=== PATIENT | male | born 2000 | race Caucasian/White ===

== ENCOUNTER 2023-03-14 16:49 | Emergency (ER) | payer MEDICAID, SELFPAY ==
[2023-03-14] VITALS (10 sets, daily range): BP systolic 114–131; BP diastolic 80–93; PULSE 94–102; RESP 14–24; TEMP 37.4; O2SAT 94–98; BMI 44.5
--- NOTE | 2023-03-14 17:04 | PC.NURSE ---
pt presents to ED because pt states that for the last 3 days he has had intermittent chest pain in center of chest that he describes as a sharp sensation. pt states that it started 3 days ago while he was driving and lasted a couple minutes. pt states pain has been coming and going on and off last 3 days. denies any other associated symptoms. no cardiac hx.
--- NOTE | 2023-03-14 17:08 | ECG_ITS ---
The [facility] Test Date: 2023-03-14 Pat Name: LAURA FABIAN Department: Room: - Gender: Male Outside Collector: : 2000 Requested By: 0923 Order Number: [id number] Reading MD: KIESHA JOHNSON Measurements Intervals [place] Rate: 93 P: 58 OR: 134 QRS: 86 QRSD: 76 T: 47 QT: 322 QTc: 373 Interpretive Statements 1100 Sinus rhythm 9110 normal ECG No previous ECG available for comparison Electronically Signed On 03-16-2023 6:35:18 EDT by KIESHA JOHNSON
--- NOTE | 2023-03-14 17:08 | XR_ITS ---
The [address] [address] Patient Name: LAURA FABIAN MRN: [id number] date: 2000 Sex: M Assigned Patient Location: ER Current Patient Location: ER Accession/Order Number: [id number] Exam Date: 03/14/2023 17:10 Report Date: 03/14/2023 17:51 At the request of: UTE HINDS Procedure: XR chest 2V EXAM: XR chest 2V HISTORY: pain COMPARISON: None. TECHNIQUE: PA and lateral views FINDINGS: The cardiovascular silhouette is normal. Lung blackman are well-expanded and clear. Pleural spaces are clear. The bony structures are unremarkable. XR/XR chest 2V IMPRESSION: No evidence for acute cardiopulmonary disease. Electronically authenticated by: Jad HUBER Date: 03/14/2023 17:51
--- NOTE | 2023-03-14 17:36 | ED_ITS ---
Documented by User: Lucia Brown 03/14/23 18:04 HPI - Chest Pain General Chief Complaint: Chest Pain Stated Complaint: CHEST PAIN x3 days Time Seen by Provider: 03/14/23 16:56 Source: patient Mode of arrival: walk-in Limitations: no limitations History of Present Illness HPI narrative: 22-year-old male presents here with a chief complaint of chest pain. Patient's had pain on and off for the last month. 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 He also states he takes Tums recently for gastric reflux. He is obese. He does not have a history of any cardiac issues. He is not hypertensive. He has no past cardiac history himself. He has no pain at this time.Patient denies History of recent surgery travel or trauma. He does not have any risk factors for PE. Vital signs are stable he is not currently febrile. Related Data Previous Rx's Medication Instructions Recorded omeprazole 40 mg capsule,delayed 40 mg PO DAILY #30 caps 03/14/23 release Allergies Allergy/AdvReac Type Severity Reaction Status Date / Time dexmethylphenidate Allergy Unknown Verified 03/14/23 16:59 [From Focalin] Review of Systems ROS Narrative All Systems are negative except as noted/marked.All systems reviewed and otherwise negative Exam Narrative Exam Narrative: Patient is a All Systems are negative except as noted/marked.All systems reviewed and otherwise negative Nurses note and vital signs reviewed and patient is not hypoxic. General: The patient appears well and in no apparent distress. Patient is resting comfortably on cart. Skin: Warm, dry, no pallor noted. There is no rash noted. Head: Normocephalic, atraumatic Ears, Nose, Mouth, and Throat: oral mucosa is moist. Nares patent. Mouth without vesicles. Ear canals patent. Tm's without Erythema Cardiovascular: Regular Rate and Rhythm Respiratory: Patient is in no distress, no accessory muscle use, lungs are clear to auscultation, no wheezing, rales or rhonchi Back: non-tender, no CVA tenderness bilaterally to percussion. GI: obese Normal bowel sounds, no tenderness to palpation, no masses appreciated. No rebound, guarding, or rigidity noted. Musculoskeletal: The patient has no evidence of calf tenderness, no pitting edema, symmetrical pulses noted bilaterally Neurological: A&O x4, normal speech Psychiatric: Cooperative Constitutional Vital Signs, click to edit/add: Last Vital Signs Temp 99.3 F 03/14/23 16:53 Pulse 97 H 03/14/23 18:00 Resp 24 03/14/23 18:00 BP 131/80 03/14/23 17:46 Pulse Ox 94 L 03/14/23 18:00 O2 Del Method Room Air 03/14/23 16:53 Course Vital Signs Vital signs: Vital Signs Temperature 99.3 F 03/14/23 16:53 Pulse Rate 98 H 03/14/23 16:53 Respiratory Rate 20 03/14/23 16:53 Blood Pressure 114/93 H 03/14/23 16:53 Pulse Oximetry 98 03/14/23 16:53 Oxygen Delivery Method Room Air 03/14/23 16:53 Temperature 99.3 F 03/14/23 16:53 Pulse Rate 97 H 03/14/23 18:00 Respiratory Rate 24 03/14/23 18:00 Blood Pressure 131/80 03/14/23 17:46 Pulse Oximetry 94 L 03/14/23 18:00 Oxygen Delivery Method Room Air 03/14/23 16:53 MDM - Chest Pain MDM Narrative Medical decision making narrative: Patient presented here chief complaint of chest pain. He states this pain radiates both sides of his chest and under his ribs. It is not reproducible at this time. Patient's cardiac score is zero. EKG is within normal limits chest x- ray within normal limits. Patient is being medicated with gastrointestinal cocktail here. patient pain is relieved with the gastrointestinal cocktail. Patient be discharged home with a prescription for omeprazole. Patient states tomorrow as his 23st birthday wants know when he can drink so that he does not have more pain, acid reflux. Plain the patient to use Pepcid. To avoid alcohol,spicy, fatty foods. He verbalizes understanding agrees with plan of care Differential Diagnosis Differential diagnosis: Likely costochondritis, chest pain and biliary colic Medical Records Data Attestation: I reviewed the patient's medical records. Imaging Data Chest x-ray: My impression: neg ECG Data Attestation: I personally reviewed and interpreted this ECG as follows: Interpretation: 1701 Some sinus rhythm with a rate of 93 bpm no [address]opy no ST elevation or depression PRR interval 134 ms QRS duration 76 ms Heart Score History: Slightly/Non-Suspicious ECG: Normal Age: <45 years Risk Factors: No Risk Factors Discharge Plan Discharge Chief Complaint: Chest Pain Clinical Impression: Acid reflux, Chest pain Patient Disposition: Home, Self-Care Time of Disposition Decision: 18:01 Condition: Good Prescriptions / Home Meds: New omeprazole 40 mg capsule,delayed release(DR/EC) 40 mg PO DAILY Qty: 30 0RF Instructions: Diet for Stomach Ulcers and Gastritis (ED), Indigestion (ED), Noncardiac Chest Pain (ED) Stand Alone Forms: Portal Instructions Referrals: Parisa Hoff MD [Primary Care Provider] - 1 week Discharge Date/Time: 03/14/23 18:07 Documented by User: Pura Steele MD 03/14/23 18:13 HPI - Chest Pain General Chief Complaint: Chest Pain Stated Complaint: CHEST PAIN x3 days Time Seen by Provider: 03/14/23 16:56 Related Data Previous Rx's Medication Instructions Recorded omeprazole 40 mg capsule,delayed 40 mg PO DAILY #30 caps 03/14/23 release Allergies Allergy/AdvReac Type Severity Reaction Status Date / Time dexmethylphenidate Allergy Unknown Verified 03/14/23 16:59 [From Focalin] Exam Constitutional Vital Signs, click to edit/add: Last Vital Signs Temp 99.3 F 03/14/23 16:53 Pulse 97 H 03/14/23 18:00 Resp 24 03/14/23 18:00 BP 131/80 03/14/23 17:46 Pulse Ox 94 L 03/14/23 18:00 O2 Del Method Room Air 03/14/23 16:53 Course Vital Signs Vital signs: Vital Signs Temperature 99.3 F 03/14/23 16:53 Pulse Rate 98 H 03/14/23 16:53 Respiratory Rate 20 03/14/23 16:53 Blood Pressure 114/93 H 03/14/23 16:53 Pulse Oximetry 98 03/14/23 16:53 Oxygen Delivery Method Room Air 03/14/23 16:53 Temperature 99.3 F 03/14/23 16:53 Pulse Rate 97 H 03/14/23 18:00 Respiratory Rate 24 03/14/23 18:00 Blood Pressure 131/80 03/14/23 17:46 Pulse Oximetry 94 L 03/14/23 18:00 Oxygen Delivery Method Room Air 03/14/23 16:53 MDM - Chest Pain MDM Narrative Medical decision making narrative: Patient presented here chief complaint of chest pain. He states this pain radiates both sides of his chest and under his ribs. It is not reproducible at this time. Patient's cardiac score is zero. EKG is within normal limits chest x- ray within normal limits. Patient is being medicated with gastrointestinal cocktail here. patient pain is relieved with the gastrointestinal cocktail. Patient be discharged home with a prescription for omeprazole. Patient states tomorrow as his 23st birthday wants know when he can drink so that he does not have more pain, acid reflux. Plain the patient to use Pepcid. To avoid alcohol,spicy, fatty foods. He verbalizes understanding agrees with plan of care. Attending physician attestation I have reviewed the mid-level documentation, agree with the documentation, medical decision making and treatment plan as outlined by the mid-level provider. Discharge Plan Discharge Chief Complaint: Chest Pain Clinical Impression: Acid reflux, Chest pain Patient Disposition: Home, Self-Care Time of Disposition Decision: 18:01 Condition: Good Prescriptions / Home Meds: New omeprazole 40 mg capsule,delayed release(DR/EC) 40 mg PO DAILY Qty: 30 0RF Instructions: Diet for Stomach Ulcers and Gastritis (ED), Indigestion (ED), Noncardiac Chest Pain (ED) Stand Alone Forms: Portal Instructions Referrals: Parisa Hoff MD [Primary Care Provider] - 1 week Discharge Date/Time: 03/14/23 18:07
[2023-03-14] MEDS: lidocaine HCL 15 ML, MAG HYDROX/ALUMINUM HYD/SIMETH 30 ML, HYOSCYAMINE SULFATE 0.25 MG PO (17:44)
== END 2023-03-14 18:07 | disposition home or self-care (01) ==
PROVIDERS: Emergency Provider Emergency Medicine; PCP Family Medicine
DX: R07.9 Chest pain, unspecified (principal); K21.9 Gastro-esophageal reflux disease without esophagitis
CPT/HCPCS: 71046; 93005; 99284

== ENCOUNTER 2023-09-10 09:40 | Outpatient (OUT) | payer MEDICAID, SELFPAY ==
--- NOTE | 2023-09-10 09:48 | XR_ITS ---
The [address] [address] Patient Name: LAURA FABIAN MRN: [id number] date: 2000 Sex: M Assigned Patient Location: RAD Current Patient Location: RAD Accession/Order Number: [id number] Exam Date: 09/10/2023 10:01 Report Date: 09/10/2023 10:35 At the request of: JAYME KATHLEEN Procedure: XR foot RT min 3V PROCEDURE: XR foot RT min 3V HISTORY: M79.671 pain in right foot , lateral COMPARISON: None. FINDINGS: BONES:No fracture, acute abnormality, or significant arthropathy. SOFT TISSUES:Soft tissue thickening lateral to the 5th metatarsal; nonspecific. No radiopaque foreign body. EFFUSION:None visible. OTHER: Negative. XR/XR foot RT min 3V IMPRESSION: 1. No acute or suspicious bone abnormality. 2. Mild lateral soft tissue swelling of uncertain etiology. Electronically authenticated by: VERONICA AMADO Date: 09/10/2023 10:35
== END 2023-09-10 09:41 | disposition home or self-care (01) ==
LOC: RAD 09:44
PROVIDERS: PCP Family Medicine; Visit Provider Family Medicine
DX: M79.671 Pain in right foot (principal)
CPT/HCPCS: 73630

== ENCOUNTER 2023-09-21 14:11 | Outpatient (OUT) | payer MEDICAID, SELFPAY ==
--- NOTE | 2023-09-21 | XR_ITS ---
The [address] [address] Patient Name: LAURA FABIAN MRN: [id number] date: 2000 Sex: M Assigned Patient Location: RAD Current Patient Location: [facility] Accession/Order Number: [id number] Exam Date: 09/21/2023 14:35 Report Date: 09/21/2023 15:40 At the request of: DANNY CREWS Procedure: XR foot RT min 3V PROCEDURE: XR foot RT min 3V COMPARISON: 09/10/2023 HISTORY: RIGHT FOOT PAIN FINDINGS: BONES:No fracture, acute abnormality, or significant arthropathy. SOFT TISSUES:Negative. No visible soft tissue swelling. EFFUSION:None visible. OTHER: Negative. XR/XR foot RT min 3V IMPRESSION: No acute radiographic abnormality Electronically authenticated by: JUDITH BENAVIDES Date: 09/21/2023 15:40
--- OUTSIDE RECORDS SUMMARY | 2023-09-21 14:27 | XMS_ITS | CCD ---
Author Name Unknown Address [address] [place] [address] Organization [facility] Care Team Providers Care Screw Machine Set Up Operator Tool Name Role Phone SPLAWSKI, RUTH B Unavailable Unavailable SPLAWSKI, RUTH B Unavailable Unavailable Parisa Kathleen Unavailable Unavaila ble SPLAWSKI, RUTH B Unavailable Unavailable SPLAWSKI, RUTH B Unavailable Unavailable Parisa Kathleen Unavailable Unavaila ble SPLAWSKI, RUTH B Unavailable Unavailable SPLAWSKI, RUTH B Unavailable Unavailable SPLAWSKI, RUTH B Unavailable Unavailable Parisa Kathleen Unavailable Unavaila PARISA Kaur Admitting Unavailable PARISA KATHLEEN Attending Unavailable PARISA KATHLEEN Primary Care Unavailable PARISA KATHLEEN Consulting Unavailable PARISA KATHLEEN Admitting Unavailable PARISA KATHLEEN Attending Unavailable PARISA KATHLEEN Consulting Unavailable Ruth Smyth MD Unavailable Unavailable Parisa Kathleen Unavailable Unavailable Emma Claros Unavailable Parisa Kathleen MD Primary Care Provider [phone] PARISA KATHLEEN Primary Care Unavailable KYREE ARTEAGA Attending Unavail able Parisa Kathleen Unavailable Allergies Allergy Classification Reported Allergen(s) Allergy Type Date of Onset Reaction(s) Facility Amphetamine / Dextroamphetamine (1 source) Amphetamine / Dextroamphetamine Drug Allergy [facility] [facility] [address] Work Phone: dexmethylphenidate (1 source) dexmethylphenidate Drug Allergy [facility] 1600 Work Phone: (1 source) Amphetamine / Dextroamphetamine Drug Allergy 016 [facility] (1 source) dexmethylphenidate Drug Allergy 016 [facility] (1 source) Esomeprazole Drug Allergy 016 [facility] (4 sources) dexmethylphenidate; Translations: [DEXMETHYLPHENIDATE] Drug Allergy 016 Other (See Comments) [facility] (2 sources) Amphetamine aspartate / Amphetamine Sulfate / Dextroamphetamine saccharate / Dextroamphetamine Sulfate; Translations: [DEXTROAMPHETAMINE-A MPHETAMINE] Drug Allergy Unknown [facility] (3 sources) Esomeprazole; Translations: [ESOMEPRAZOLE] Drug Allergy Unknown [facility] (1 source) Allergies Reconciled Propensity to adverse reactions Unknown [facility] (1 source) Adderall *ADHD/ANTI-NARCOLEPS Y/ANTI-OBESITY/ANORE X Propensity to adverse reactions Unknown [facility] Other (1 source) Whey Protein Drug allergy 018 Comment:whey [facility] Other (1 source) Focalin XR *ADHD/ANTI-NARCOLEPS Y/ANTI-OBESITY/ANOR Propensity to adverse reactions 014 FOCALIN XR Comment:Freet ext Needs Updated. [facility] Other (1 source) Adderall XR *ADHD/ANTI-NARCOLEPS Y/ANTI-OBESITY/ANO Propensity to adverse reactions 013 ADDERALL XR Comment:Freet ext Needs Updated. [facility] Other (1 source) Focalin *ADHD/ANTI-NARCOLEPS Y/ANTI-OBESITY/ANORE XI Propensity to adverse reactions Unknown [facility] Other (1 source) patient allergy list reviewed by nurse or physicia Propensity to adverse reactions 019 Comment:Done [facility] Other Medications Current Medications Medication Drug Class(es) Dates Sig (Normalized) Sig (Original) amoxicillin 500 mg oral capsule (3 sources) Penicillin-class Antibacterial Start: 10-19-2022 End: 10-26-2022 take 2 capsules by mouth three times daily amoxicillin (AMOXIL) 500 MG capsule Indications: Bilateral otitis media, unspecified otitis media type Take 2 (two) capsules (1,000 mg total) by mouth 3 (three) times a day for 7 days . 42 capsule 0 10/19/2022 10/26/2022 Active Start: 07-10-2019 take 1 tablet by sunshine th every twelve hours Amoxicillin 875 MG 1 tablet Orally every 12 hrs for 7 days Jul, Not-Taking/PRN benzonatate 100 mg oral capsule (1 source) Non-narcotic Antitussive Start: 10-19-2022 benzonatate (Tessalon Perles) 100 MG capsule Indications: Acute cough Take one or two capsules every 8 hours as needed for cough. Do not chew. . 60 capsule 1 10/19/2022 Active predniSONE 20 mg oral tablet (1 source) Start: 12-03-2021 take 1 tablet by mouth every twelve hours predniSONE 20 MG 1 tablet Orally bid for 5 day(s) Nov, Active Completed/Discontinued Medications Medication Drug Class(es) Dates Sig (Normalized) Sig (Original) cetirizine hydrochloride 10 mg oral tablet (1 source) Histamine-1 Receptor Antagonist Start: 04-27-2018 take 1 tablet by mouth once daily as needed Cetirizine HCl - 10 MG Oral Tablet TAKE 1 TABLET BY MOUTH EVERYDAY NEEDED FOR ALLERGIES Quantity: 30 Refills: 0 Start : 27-Apr-2018 Active dextromethorphan hydrobromide 15 mg / guaiFENesin 400 mg / pseudoephedrine hydrochloride 60 mg oral tablet (2 sources) alpha-Adrenergic Agonist, Uncompetitive M-zdytao-O-aspartate Receptor Antagonist, Sigma-1 Agonist Start: 07-10-2019 take 0.5-1 tablets by mouth every six hours as needed Capmist DM 60-15-400 MG 1/2 to 1 tablet as needed Orally every 6 hours Jul, Not-Taking/PRN fluticasone propionate 0.05 mg/actuat metered dose nasal spray (2 sources) Corticosteroid Start: 07-10-2019 take 1 spray(s) nasal route once daily as needed Fluticasone Propionate 50 MCG/ACT 1 spray in each nostril Nasally Once a day for 30 day(s) Jul, Not-Taking/PRN Start: 07-10-2019 take 1 spray(s) nasa l route once daily Fluticasone Propionate 50 MCG/ACT 1 spray in each nostril Nasally Once a day for 30 day(s) Jul, Not-Taking lurasidone hydrochloride 40 mg oral tablet (1 source) Atypical Antipsychotic Start: 05-04-2018 Latuda 40 MG Oral Tablet Quantity: 30 Refills: 0 Start : 04-May-2018 Active nystatin 100 unt/mg topical powder (1 source) Polyene Antifungal Start: 06-27-2018 Nystatin 575976 UNIT/GM External Powder Quantity: 30 Refills: 0 Start : 27-Jun-2018 Active omeprazole 20 mg delayed release oral capsule (2 sources) Proton Pump Inhibitor Start: 05-11-2018 take 1 capsule by mouth twice daily Omeprazole 20 MG Oral Capsule Delayed Release Take 1 capsule twice daily Quantity: 30 Refills: 0 Ruth Smyth MD Start : 11-May-2018 Active take 1 capsule by mouth once carolyn ly Omeprazole 20 MG 1 capsule 30 minutes before morning meal Orally Once a day for 30 days Active oxymetazoline hydrochloride 0.5 mg/ml nasal spray (2 sources) Start: 07-11-2018 take 1 spray(s) nasal route twice daily Afrin Sinus 0.05 % Nasal Solution USE 1 SPRAY IN EACH NOSTRIL TWICE DAILY. Quantity: 1 Refills: 0 Ruth Smyth MD Start : 11-Jul-2018 Active 15 ML Bottle Start: 08-06-2017 [facility] Nasal Spra y 0.05 % Nasal Solution USE 2 SPRAYS IN EACH NOSTRIL TWICE A DAY NEEDED Quantity: 15 Refills: 0 Start : 06-Aug-2017 Active penicillin v potassium 500 mg oral tablet (1 source) Start: 10-15-2022 End: 10-19-2022 take 1 tablet by mouth four times daily penicillin v potassium (VEETID) 500 MG tablet TAKE 1 TABLET BY MOUTH 4 TIMES DAILY FOR 7 DAYS 0 10/15/2022 10/19/2022 Discontinued (Alternate therapy) Problems Active Problems Problem Classification Problem Date Documented Da te Episodic/Chronic Abdominal pain (9 sources) Epigastric pain; Translations: [Epigastric pain] Onset: 07-19-2013 Episodic Acute and chronic tonsillitis (1 source) Enlargement of tonsil or adenoid; Translations: [Hypertrophy of tonsil with adenoids] Onset: 11-05-2014 Chronic Adjustment disorders (1 source) Adjustment disorder with depressed mood; Translations: [Adjustment disorder with depressed mood] Onset: 09-18-2013 Chronic Attention-deficit, conduct, and disruptive behavior disorders (1 source) Attention deficit hyperactivity disorder; Translations: [Attention-deficit hyperactivity disorder, unspecified type] Chronic Esophageal disorders (4 sources) Eosinophilic esophagitis; Translations: [Gastroesophageal reflux disease] Onset: 01-30-2015 Chronic Fracture of upper limb (1 source) Nondisplaced fracture of distal phalanx of right thumb, initial encounter for closed fracture; Translations: [Nondisplaced fracture of distal phalanx of right thumb, initial encounter for closed fracture] Episodic Gastritis and duodenitis (1 source) Duodenitis without bleeding; Translations: [Duodenitis without bleeding] Onset: 05-30-2018 Episodic Mood disorders (1 source) Bipolar disorder, most recent episode depression; Translations: [Bipolar I disorder, most recent episode (or current) depressed, unspecified] Chronic Mood disorders (1 source) Mood disorders; Translations: [Depression, unspecified] Nausea and vomiting (1 source) Vomiting, unspecified; Translations: [Vomiting, unspecified] Onset: 05-30-2018 Nonspecific chest pain (2 sources) Precordial pain; Translations: [Precordial pain] Onset: 04-23-2015 Episodic Other circulatory disease (1 source) Elevated blood-pressure reading without diagnosis of hypertension; Translations: [Elevated blood-pressure reading, without diagnosis of hypertension] Episodic Other connective tissue disease (1 source) Pain in right foot; Translations: [Pain in right foot] Episodic Other connective tissue disease (1 source) Pain in right foot Episodic Other disorders of stomach and duodenum (1 source) Other diseases of stomach and duodenum; Translations: [Other diseases of stomach and duodenum] Onset: 05-30-2018 Episodic Other ear and sense organ disorders (1 source) Impacted cerumen; Translations: [Impacted cerumen, right ear] Episodic Other gastrointestinal disorders (1 source) Diarrhea; Translations: [Diarrhea] Episodic Other infections; including parasitic (1 source) History of bacterial infection; Translations: [Personal history of other infectious and parasitic diseases] Episodic Other liver diseases (1 source) Fatty (change of) liver, not elsewhere classified; Translations: [Fatty (change of) liver, not elsewhere classified] Onset: 05-30-2018 Chronic Other liver diseases (1 source) Steatosis of liver; Translations: [Other chronic nonalcoholic liver disease] Chronic Other lower respiratory disease (1 source) Chronic cough; Translations: [Cough] Episodic Other nutritional; endocrine; and metabolic disorders (1 source) Body mass index (BMI) 45.0-49.9, adult; Translations: [Body mass index (BMI) 45.0-49.9, adult] Chronic Other nutritional; endocrine; and metabolic disorders (1 source) Body mass index (BMI) 40.0-44.9, adult; Translations: [Body mass index (BMI) 40.0-44.9, adult] Chronic Other nutritional; endocrine; and metabolic disorders (1 source) Obesity; Translations: [Obesity, unspecified] Onset: 06-27-2018 Chronic Other nutritional; endocrine; and metabolic disorders (1 source) Abnormal weight loss; Translations: [Abnormal weight loss] Onset: 05-30-2018 Episodic Other upper respiratory disease (1 source) Bleeding from nose; Translations: [Epistaxis] Episodic Other upper respiratory disease (1 source) Epistaxis; Translations: [Epistaxis] Episodic Otitis media and related conditions (5 sources) Otitis media of bilateral ears; Translations: [Otitis media, unspecified, bilateral] Onset: 09-08-2018 Episodic Screening and history of mental health and substance abuse codes (1 source) H/O: psychiatric disorder; Translations: [Personal history of other mental disorders] Episodic Sprains and strains (3 sources) Sprain of tibiofibular ligament of right ankle; Translations: [Sprain of tibiofibular ligament of right ankle, initial encounter] Onset: 12-05-2013 Episodic Unclassified (1 source) COVID-19; Translations: [COVID-19] Onset: 08-10-2020 Unclassified (1 source) Acute cough; Translations: [Acute cough] Onset: 10-19-2022 Unclassified (1 source) Cellulitis and abscess of leg, except foot; Translations: [Cellulitis and abscess of leg, except foot] Onset: 02-12-2015 Unclassified (1 source) Other dyspnea and respiratory abnormalities; Translations: [Other dyspnea and respiratory abnormalities] Onset: 04-23-2015 Unclassified (1 source) Health examination of defined subpopulation; Translations: [Health examination of defined subpopulation] Onset: 10-24-2014 Unclassified (1 source) Pain in joint, forearm; Translations: [Pain in joint, forearm] Onset: 06-27-2018 Unclassified (1 source) Diphtheria-tetanus- pertussis, combined [DTP] [DtaP]; Translations: [Diphtheria-tetanus -pertussis, combined [DTP] [DtaP]] Onset: 10-24-2014 Viral infection (3 sources) Infectious mononucleosis; Translations: [Infectious mononucleosis, unspecified without complication] Onset: 08-23-2014 Episodic Past or Other Problems Problem Classification Problem Date Documented Da te Episodic/Chronic Acute bronchitis (1 source) Acute bronchitis, unspecified; Translations: [Acute bronchitis, unspecified] Onset: 08-12-2017 Episodic Genitourinary symptoms and ill-defined conditions (1 source) Dysuria; Translations: [Dysuria] Onset: 12-13-2018 Episodic Headache; including migraine (1 source) Headache; Translations: [Headache] Onset: 04-22-2016 Episodic Immunizations and screening for infectious disease (5 sources) Contact with and (suspected) exposure to other viral communicable diseases; Translations: [CONTCT EXPS OTH VIRL COMMUNICABL DZ] Onset: 06-07-2020 Resolved: 12-03-2021 Episodic Intracranial injury (2 sources) History of concussion injury of brain; Translations: [Personal history of traumatic brain injury] Onset: 04-21-2017 Episodic Mycoses (1 source) Candidiasis of skin and nails; Translations: [Candidiasis of skin and nail] Onset: 06-27-2018 Episodic Nausea and vomiting (2 sources) Vomiting; Translations: [Vomiting alone] Onset: 2018 Episodic Noninfectious gastroenteritis (1 source) Non-infective enteritis and colitis; Translations: [Noninfective gastroenteritis and colitis, unspecified] Onset: 01-13-2018 Episodic Other connective tissue disease (1 source) Enthesopathy of hip region; Translations: [Enthesopathy of hip region] Onset: 04-05-2018 Episodic Other connective tissue disease (1 source) Bicipital tendinitis, left shoulder; Translations: [Bicipital tendinitis, left shoulder] Onset: 04-05-2018 Episodic Other connective tissue disease (1 source) Pain in right hand; Translations: [Pain in right hand] Onset: 06-07-2015 Episodic Other connective tissue disease (1 source) Spasm of muscle; Translations: [Spasm of muscle] Onset: 04-27-2014 Episodic Other connective tissue disease (1 source) Muscle pain; Translations: [Unspecified myalgia and myositis] Onset: 12-16-2017 Episodic Other connective tissue disease (1 source) Achilles bursitis or tendinitis; Translations: [Achilles bursitis or tendinitis] Onset: 05-15-2015 Episodic Other gastrointestinal disorders (1 source) Diarrhea, unspecified; Translations: [Diarrhea, unspecified] Onset: 10-10-2013 Episodic Other inflammatory condition of skin (1 source) Solar erythema; Translations: [Contact dermatitis and other eczema due to sunburn] Onset: 04-05-2018 Episodic Other injuries and conditions due to external causes (1 source) Sprain of joint; Translations: [Unspecified site of sprain and strain] Onset: 07-13-2014 Episodic Other injuries and conditions due to external causes (1 source) Sprains and strains of joints and adjacent muscles; Translations: [Other specified sites of sprains and strains] Onset: 06-28-2013 Episodic Other lower respiratory disease (3 sources) Cough; Translations: [Acute cough] Onset: 07-19-2013 Episodic Other non-traumatic joint disorders (1 source) Pain in left wrist; Translations: [Pain in left wrist] Onset: 05-15-2014 Episodic Other nutritional; endocrine; and metabolic disorders (1 source) Overweight; Translations: [Overweight] Onset: 05-15-2014 Episodic Other nutritional; endocrine; and metabolic disorders (1 source) Polydipsia; Translations: [Polydipsia] Onset: 07-19-2013 Episodic Other upper respiratory infections (7 sources) Acute sinusitis, unspecified; Translations: [Sore throat symptom] Onset: 07-08-2015 Resolved: 12-03-2021 Episodic Spondylosis; intervertebral disc disorders; other back problems (1 source) Low back pain; Translations: [Lumbago] Onset: 08-24-2018 Episodic Unclassified (1 source) Acute cough; Translations: [Acute cough] Onset: 10-19-2022 NEGATED: Highlighted row has not occurred!Residual codes; unclassified (1 source) Disease Episodic Results Test Name Value Interpretation Reference Range Facility COVID Quick Testingon 2021 Result Negative [facility] Other Ambulatory Clinical Summaryo n 12-25-2020 Ambulatory Clinical Summary {[id number]}CD:[id number] Hernandez Coles [facility] Video Visit - Telehealthon 12-25-2020 Family Medicine Video Visit - Telehealth 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 Patient presents via video visit for concern of HUNTER, cough, nasal congestion. Symptoms x 1 day. Denies fever. Denies known covid exposure. Mild nausea at times. Has been using tylenol otc with mild improvement. Does have mono, diagnosed about 3 weeks ago. He has been around aunt who had similar cold symptoms, she had pcr test for covid and was negative. Review of Systems Fatigue: yes Body aches: no Chills: no Fever: no HUNTER: yes Nasal congestion: yes Rhinorrhea: yes Cough: yes, productive SOB: no Wheezing: no Sore throat: yes Ear pain: no Ear drainage: no Loss of taste or smell: no Nausea: yes Vomiting: no Diarrhea: no Current or former smoker: no Underlying health conditions: no Known Covid exposure: no Physical Exam Vitals & Measurements HT: 179.0 cm HT: 179 cm WT: 138.5 kg WT: 138.5 kg BMI: 43.23 General: Well developed, well nourished, in no acute distress Lungs: no conversational dyspnea, no audible wheezing, appears in no acute respiratory distress Skin: Visible skin appears pink without cyanosis Mental Status: Alert and oriented x3. Normal mood and affect Assessment/Plan 1. BMI 40.0-44.9, adult (Z68.41: Body mass index [BMI]40.0-44.9, adult) The standard range for ages 18 and older is >=18.5 and < 25 kg/m2. Your BMI today was above this range, this falls in the overweight to obese category and there are medical benefits to weight loss. We can offer counselling, referral, and/or medical support in addressing this problem. Your BMI and weight management will be followed at subsequent visits. Ordered: Body Mass Index (BMI) documented 3008F [facility] Office Visit Level 2 New 19468 2. Acute nasopharyngitis [common cold] (J00: Acute nasopharyngitis [common cold]) Discussed exam and hx are consistent with viral illness. Advised of typical duration. Discussed antibiotics unfortunately do not treat viral illnesses, it will take time to run course- usually 7-14 days. Fluids/rest encouraged, PRN tylenol/ibuprofen for any pain. May use bromfed rx for symptomatic tx. Follow up with PCP if not improving over next 7 days or significantly worsening symptoms. Patient and/or parent verbalized understanding of tx plan. Patient's family with similar URI symptoms, family member had recent covid test PCR-negative. This visit was conducted via two-way, real-time interactive video communications from my office using [employer] due to the restrictions of the COVID-19 pandemic. No physical exam was conducted other than those areas of the body visible to telecommunications with the patient located at [address] [place] [address], in vehicle in parking lot., with aunt in attendance. If it is determined that the patient should be evaluated in the clinic, the patient will be directed to the appropriate clinic or venue. The patient or their guardian verbally consented to this visit. Total time spent preparing the chart, conducting the encounter with the patient and family, and time spent documenting, reviewing, and ordering tests was 10 minutes. Ordered: TELEHEALTH Office Visit Level 2 New 99507 Sore throat (J02.9: Acute pharyngitis, unspecified) strep negative Ordered: Rapid Strep POC 60543 Orders: brompheniramine/dextromethorph an/PSE, 10 mL, Oral, QID for cough and congestion for 1 months, 240 mL, Refill(s) 0, [facility], 179, cm, 12/25/20 16:57:00 EDT, Height/Length Dosing, 138.5, kg, 12/25/20 16:57:00 EDT, Weight Dosing Follow-up With When Contact Information HEVER MIN, PARISA, FAM [facility] [place] [address]- Additional Instructions: Patient Education BMI for Adults Problem List/Past Medical History Ongoing No qualifying data Historical No qualifying data Medications Bromfed DM oral syrup, 10 mL, Oral, QID, PRN Allergies No Known Allergies Social History Tobacco - No Risk, 12/25/2020 Normal [facility] Comment on above: Result Comment: Elec tronically Signed By: Joan GILMAN CNP\.br\Date and Time Signed: 12/25/20 18:08 EDT Patient Educationon 12-26-19 21 Patient Education Nutrition BMI for Adults Body mass index (BMI) is a number that is calculated from a person's weight and height. BMI may help to estimate how much of a person's weight is composed of fat. BMI can help identify those who may be at higher risk for certain medical problems. How is BMI used with adults? BMI is used as a screening tool to identify possible weight problems. It is used to check whether a person is obese, overweight, healthy weight, or underweight. How is BMI calculated? BMI measures your weight and compares it to your height. This can be done either in [place] ([place] or metric measurements. Note that charts are available to help you find your BMI quickly and easily without having to do these calculations yourself. To calculate your BMI in [place] measurements, your health care provider will: 1. Measure your weight in pounds (lb). 2. Multiply the number of pounds by 703. ? For example, for a person who weighs 180 lb, multiply that number by 703, which equals 126,540. 3. Measure your height in inches (in). Then multiply that number by itself to get a measurement called inches squared. ? For example, for a person who is 70 in tall, the inches squared measurement is 70 in x 70 in, which equals 4900 inches squared. 4. Divide the total from Step 2 (number of lb x 703) by the total from Step 3 (inches squared): 126,540 ? 4900 = 25.8. This is your BMI. To calculate your BMI in metric measurements, your health care provider will: 1. Measure your weight in kilograms (kg). 2. Measure your height in meters (m). Then multiply that number by itself to get a measurement called meters squared. ? For example, for a person who is 1.75 m tall, the meters squared measurement is 1.75 m x 1.75 m, which is equal to 3.1 meters squared. 3. Divide the number of kilograms (your weight) by the meters squared number. In this example: 70 ? 3.1 = 22.6. This is your BMI. How is BMI interpreted? To interpret your results, your health care provider will use BMI charts to identify whether you are underweight, normal weight, overweight, or obese. The following guidelines will be used: ? Underweight: BMI less than 18.5. ? Normal weight: BMI between 18.5 and 24.9. ? Overweight: BMI between 25 and 29.9. ? Obese: BMI of 30 and above. Please note: ? Weight includes both fat and muscle, so someone with a muscular build, such as an athlete, may have a BMI that is higher than 24.9. In cases like these, BMI is not an accurate measure of body fat. ? To determine if excess body fat is the cause of a BMI of 25 or higher, further assessments may need to be done by a health care provider. ? BMI is usually interpreted in the same way for men and women. Why is BMI a useful tool? BMI is useful in two ways: ? Identifying a weight problem that may be related to a medical condition, or that may increase the risk for medical problems. ? Promoting lifestyle and diet changes in order to reach a healthy weight. Summary ? Body mass index (BMI) is a number that is calculated from a person's weight and height. ? BMI may help to estimate how much of a person's weight is composed of fat. BMI can help identify those who may be at higher risk for certain medical problems. ? BMI can be measured using Peruvian measurements or metric measurements. ? To interpret your results, your health care provider will use BMI charts to identify whether you are underweight, normal weight, overweight, or obese. This information is not intended to replace advice given to you by your health care provider. Make sure you discuss any questions you have with your health care provider. Document Released: 04/06/2005 Document Revised: 07/08/2018 Document Reviewed: 06/08/2018 [employer] Patient Education ? 2019 [employer] [facility] Patient Letter FTon 2020 Patient Letter [facility] December 25, 2020 LAURA FABIAN [address] [place], [place] [address] [address] [place] [address] Please excuse LAURA FABIAN from school . Date and/or Time of Absence: From: 12/25/20 To: 12/26/20 May return to school on: 12/27/20 as long as feeling better overall and remains afebrile. Restrictions: None Provider Signature: Joan Gilman, DIRECTOR SUPPLIER QUALITY-INORGANIC CHEMISTRY TEACHER, PAPER CORE MACHINE OPERATOR-C Nurse Practitioner [address] [place] [address] [facility] Coding Summary.on 12-12-2020 Coding Summary. [id number] Gh0bWw+PGh lYWQ+OZ4GMVUlZ59kcAVvvQ8IM4gKK E8OFGHLOOUVWP4YYW3efXK3MPjpG0X ybiAv IszsrHWcNX92UDp3XLB0zPocEYltgC 0toSBqE0f4IbRlCO02qD88HLuhHSNv OqZ2TmXudjvdaSSx N4weGkMlyCZlOzh+PHRhYmxlIHdpZH VpXBklSPKdDdSlsYexEL3lOk1wSBXe LWNvbGxhcHNlOiBj x5vrRWTwXQqqQY0dmNiuP6FxhZE4YX Dew9q7Fb83rVO+QBNvQEJ0sFhaLGwx s167ByJqt7gvTVX0 lAFgGXlvOXR6V63bg8M0QIJpLHMvMQ S7pKT7dW4muUulmogiP5PpxWQfKwX0 NKX0yKVrtT5wmYaf vohcaA3xJbn+J08DXY3VAFWZOT7UEt d2C7HoDoygcDY+GW10EXZhMH23gBPl eKVqy6yqlZz9IqEz VXZgTWM5hAelGXaeo3JrIYZcU36mhL Hhs7G7RUQtkJdenEJhKnWodXQ8lO0q JOvourkej8ebfxva Lzbwk5twlq62tU59V93nLDzcOMRiWL Q6NZIfHKOucEgksb1brZ8vLz9+IDxj z2uwo0sfhMh4ZwRk AZBgvyJogXgpWJF7b9NbTo26L6NibK byi8EqTqr5di62vOHav4V5sFJ8YQce WTAmyZ6yKKotRjY2 OANfSvMacE29tNAtARtnOz6nqPxvtG icAJ9eODFmnqynQOXkgQ7jVRDtjLAb iWkiOZ1eBWXpwixp a968CpJmPPR1YBFckRYwK7OrqT3yOd TbLDFnIHDzW6FgsXNrKBjcO511YVtg AmP9BUOkrvGqP6Tk OLApqIoiLvY3g4Z4Ip7Ma3EzmnwjHI D4XWwyLPG3BeI9YzJqKvO9T4GaShb6 HPAriSdrPK0rP2Wy HBHejsycxbtqgGN9XZAuCOUtdA46sI ApDIflEl5kt6I4v717UALwLCBesQ71 Rd5rrJygKYYatQFN eT2tqahzj1pkvveiGaKuSERxRSu7GX c3SKNayFlcKzJzKVK1PkT1KGV7vUTn wA0cyTrrjffpdH0a Oyc+W73dvH2bUGL0UEO3xkhpIZDsrk QnPQ88JK33G4UfCzynqNQqvUC+PGRp ddHeaJfiWA5rUcCq b0ssi5YbGElcT8KrADSeVAimSwi3XN CcQBK1jMJ5uL9kKWYkRLppz1U0yHI8 Q4EggsJpvo8xc0lt APWvVFavW30lnHDbv2P3HCXotYO7TV WkkVcoJnUslV93Nch+DUYpsFhct6En Ghain6zxl8ybqSl3 CjAcECTxymYehFbqQHV4h5NmUr03J1 1rNUtaPRYeIELcCUKtJVZbdTltoo0t yG9lNf3+PGNvbCB3 sNO2sP7fIPZoMnM0WKheZ541HiTzzY RoNrkzf6rkq5hwsVl5IjAqFUDogwOa vSiuRAU7b0JyLw62 D06xNEeaBQQaLTUlYLVcHFDnnXjtea 0jqT2oKf6+YR5sc1wmcy00vE58kUW+ DHMbZDV8bYtmEXkn SXPjpN3aUHxdZlJ0NYDrBpEowD11bP DeQAinNg3dgWrbhDwpBA4iAEWflmpt q065NhNqk7azREZo aJOoSLlhWLI2Q68ym0S8BPQkMJBdTB W8cRG1qG4avGuljclbcVBekJlbtvOd iVcwMXffGYudX682 ILZkbSoqXyVlkZvnbbPhDjFoEDf3M4 QoVkm6NTLleXizEW3qcAWmAEtvSs2n mHxyyJnfYK4eNOXt jdtqd806NfNjy6ewMGVgdHRsXVieTH F8K47sk8Q8WTOyNILdRWS5aKK5qH5y bGlnbjogbGVmdDsg jzCemNpcBKprMLgmO406CHVgnYzzKe YcxiTpCTCniPM3PN24RR18sFPgx3W2 mVQ5S8XsTILahjwh dyfgxWG4ZSSkMRQtzJ04Lz6muOacEl 8gJMDuNEV4SHJfpAQsQ2DvnC6aFqIv TMSiDKIiB2TsoFEa SBkrO343UWczLyM9HWLrmmDtN1StYE PmmSizLwH2w1R3Um1PO7K9BI59WU77 dEMdh1F3qAO1K4Hf NFUetjoiiuwzoLW5LLMkXPQxmV21Ha 5vhGhmFh2yYNAnATV7LGNapDLgV2Kb vZ9aNsWpEUFjPXBo E1GvwEPtDYcgS819GApyIsE7JXVkdq KbW8ZyUVKgaVvzWvA4r7H3Kh9WCUd3 RE67HD78uWOzo5B8 zJT0B1ToGBLtfyrivtfewRG3MCXtKK JqeS46Cz0sbXexRe0nWMLjIVD7OKUg mXAmF7StiT6bLjHb OVImCAHqP3OdcSWjTZefQ206CFxgCv N9RSCcvlDtZ6YyDQZhaQnoAsR1f2P4 Lj0QOHNtXX16EGL6 vNJ8RU84HK13H8ReZzfwiLStdJG+PH RhYmxlIHdpZHRoPScxMDAlJyBzdHls HI8rMz7fQUKdUGEf vBpdoVChOySrw3ibDMDkPSrmYL6wfE ftY8NmmOZ1CQHwa1n1Ha90A03qE3Sj dXA+QEMwcDI2rLZ5 rL2wQvZwOvZ6BKdtE954VuCabDTuEu idh9owp1ocpIa3NjR6NXIgdoYvtKwd WZV9k4QdKa26H79o DGtvHGKqIXRqQLFhCVSadMauwn4nxK 9wIi8+NMSwrXX4mOE9oM7sSwPmFzO1 WSleK075EpExfDAw Rnbtz1gzi3mslDo2GlIrTUPgneQvxD jcVMD9o9CyLn77N9ThzUgsv6AiIrw0 ug37rIHxt9O5kBK8 S6BsGFGhpmceyIMywHeyQW4fWVFbbk deDKDjgU6bOPGaW5m8RhMwKcN9RJid J9MajwJ1SOXxrGPg HEkiIVP5T10st3J5LVKkDHOaMXP4iA M5eP7apRabmubggFTjjCmqmfOsfOac QZdsFOuqQ535PXPq cVszFUOdeJ8dNCWwqEFxlUzyWJ5gJI RjffulKhDSSrSRQwOGXXqwWA6TGA2F MQCNSHPXPQF0P9Lb Mmd0ALOdcCmcXS3zjJMfWRcaXl8iuK swxTeoLU7nDVVuxpcpDSQopX4tRTJy mOUtdGqdHZ9dDYEy asvus550EyExNXL6WZWhbPQzS6AedO 9pPuCxDOArPRFtM7KyuGKgVRmeI910 KKdjSfC0KWYlpiUo C4JyOXHxlVmaIaN0c8M8Qg7vZA9xJx 0nWXCsKP28KQ36zKFcz2S3uDH5X4Pc ZGRpbmctcmlnaHQ6 DADuGEZrvK92eTNuDKkbSy7fo2Z8r4 95ISLkLTSkhB10Wq1blGzhWGJhjNYW cH9xybeaj1lvtxhv FgTdMPAuAGa9QNt9RBIdhAwaPiGrTK Y6ScQ0ICA7uYBijO2iyNzocxhqlZ6f Oyc+MTggWWVhcnM8 J7RcZhz1MAAhzWdiDM3cqSMyIDawKw 5vnAlpkKlwHU5iXROobfmqSOFsoW2e ADYlqGMhaIkmQD3r PEAdizbtk532WvGmZTA9DRHmmNDiM1 ImpZ6gWzCfDEMxETFdA8GjfFWuCDmb S726WJvjEpS6RVMc upSlD1ViLZIzfPcrPjU9m7N6Zq6QIN yiUQ73UD56pHLim9X3tHJ4J8PnGLVw gcsbuxprlXE9BHKy QIJhwV18oFWnSNrxGa8ty1P6p402OT UdHKHpoC06Xd6btKhjZYPoaWLKfR9l nslji7mipsrkBcGv RXMzJPe8UFs9AVVbqThaJeKrPFT8Qi G9WJI6jTTouB4anAhezisztD3tAnr+ EH5zexzdmgW0RS34 HR76E3VuJmfwoBRupJJ+PHRhYmxlIH ujVNUnPTxeYFPjJuHfsGwhIZ3aXt4k ZGVyLWNvbGxhcHNl VbSbk1pdAOBmJTxmKN0vjHghG6MytR X5MQTnu3f1Il32X79pU7AeuTX+PGNv xVB0jEH9eD5yUgOt VtK8TZxcC335GhCcvECvJqius4dkm8 vznGw0VqNjQQCmxbCauZopLII2a1Oa Sr96O95bSPunEODf WTZiJXHxAFRmyRmswa7cgU2fRs6+PG QrfHF6nIC4xX2bRlWfWzV6NDkuQ391 EdOvtUBpWgvfP05h U4UbfPS+GGKfGgc3SNZqyOveNC9wzU FkDLzdBf8mHJG9ZkMoAuOvDPyxM8Ny ZGRpbmctcmlnaHQ6 KBImIGNinM08Ge2xdBsdRn2mYXTaYZ H5MHTriJCaP9MgjH1zRsXoLFFqZBNc G3PwyKRpBEoxH283 ODqeYeC6LIHhaoHmE7ItROOklTsfLa Q9q1A0Sl6AmMeeoUPbOA8nIeTnASy3 A8FfJld6PAMzsJvm PV2vhRGkNBnzGn0woUmifGlpGD0sDV Igoxfco566NlOkc3vbFUMeiNZcYDpi QWS7U77al5C9YQEv NHKbPTY7gSP7hP2cbAxvjaoqjLLlxL tthdDanIshUAzlAJyqA178JMHxuGni XtHZMin2G0XxCll7 ZSPdaWowEP9iiTWzZQesBv7iqLxjgW yrDV7qDQXubvtbh496TvPmo3oxUKMa nCJzJYciCKB5Y47d a3R4ANDyNTNsQQM8rJK3rH5xrFaefe miiEUwoOpydxKayWbsRLveGEgdZ136 EZUaoYswJk2IXdb9 X4GdPpb8XAGkrVwjZC7leHSkTQboKq 7szVdqjZnlLZ4hBOGapkjjq741PcGw m4akSCPxeYRiITcu KPF2P39pq9S1NTRnTGAtDNX0hCL4gQ 1hbGlnbjogbGVmdDsgdmVydGljYWwt JUsiB659SGSdsVxc PlBheWVyOjwvdGQ+VO50mk54B1OrBm tdKod6NGElBVB6aIA9wR6hPYJpQOgb u7C7rMB3U7SejrSj ci1j (more content not included)... Normal [facility] Discharge Instructionson Discharge Instructions [id number] Normal [facility] Prescriptions/Work Noteson 0 12-06-2020 Prescriptions/Wor k Notes [id number]:127 Normal [facility] Auto Diffon 12-05-2020 Basophils/100 WBC (Bld) 0.8 % Normal 0.0-2.0 [facility] Comment on above: Order Comment: Order Added by Discern Expert. Performed By: #### 2 888798, 2964515, 5430839, 48511665, 0851340, 7343488, 7462722 ####[facility] [address] [place] [address] Basophils/Leukocy lilly Auto (Bld) [Pure # fraction] 0.1 E9/L Normal 0.0-0.2 [facility] Comment on above: Order Comment: Order Added by Discern Expert. Performed By: #### 2 202015, 4791272, 5536991, 88039637, 8263604, 3322240, 4656628 ####[facility] [address] [place] [address] Eosinophils/100 WBC (Bld) 3.6 % Normal 0.0-8.0 [facility] Comment on above: Order Comment: Order Added by Discern Expert. Performed By: #### 2 442753, 5011923, 0659465, 71568736, 3611014, 2635809, 9599196 ####[address] [place] [address] Eosinophils/Leuko cytes Auto (Bld) [Pure # fraction] 0.3 E9/L Normal 0.0-0.5 [facility] Comment on above: Order Comment: Order Added by Discern Expert. Performed By: #### 2 182398, 1686354, 4220474, 15951686, 5565938, 6163050, 9812754 ####[facility] [address] [place] [address] Lymphocytes/100 WBC (Bld) 39.6 % Normal 14.0-50.0 [facility] Comment on above: Order Comment: Order Added by Discern Expert. Performed By: #### 2 226018, 1906204, 1302634, 62561424, 8225614, 2868412, 9155056 ####[facility] [address] [place] [address] Lymphocytes/Leuko cytes Auto (Bld) [Pure # fraction] 3.2 E9/L Normal 1.0-4.0 [facility] Comment on above: Order Comment: Order Added by Discern Expert. Performed By: #### 2 463240, 6826803, 6485878, 55825081, 1890640, 3119619, 4769148 ####[facility] [address] [place] [address] Monocytes/100 WBC (Bld) 7.9 % Normal 4.0-14.0 [facility] Comment on above: Order Comment: Order Added by Discern Expert. Performed By: #### 2 534430, 9417358, 8973676, 28700020, 0528770, 0516735, 3727020 ####[facility] [address] [place] [address] Monocytes/Leukocy lilly Auto (Bld) [Pure # fraction] 0.6 E9/L Normal 0.2-1.0 [facility] Comment on above: Order Comment: Order Added by Discern Expert. Performed By: #### 2 291244, 6288297, 7793397, 61394322, 7386471, 9405766, 7146417 ####[address] [place] [address] Neutrophils/100 WBC (Bld) 48.1 % Normal 36.0-75.0 [facility] Comment on above: Order Comment: Order Added by Discern Expert. Performed By: #### 2 262555, 9546217, 7014125, 80024766, 3632539, 9330847, 2257372 ####[address] [place] [address] Neutrophils/Leuko cytes Auto (Bld) [Pure # fraction] 3.9 E9/L Normal 2.0-7.5 [facility] Comment on above: Order Comment: Order Added by Discern Expert. Performed By: #### 2 083583, 0165078, 8964649, 22662952, 5782950, 6674623, 8912331 ####[facility] [address] [place] [address] BMPon 12-05-2020 Anion gap [Moles/Vol] 12 mmol/L Normal 6-16 [facility] Comment on above: Order Comment: The s pecimen for this test has been found unacceptable due to hemolysis as determined by SW.Pia was contacted and the following determination was made to redraw the patient. Performed By: #### 2 513540, 2648203, 8511537, 39013223, 5006663, 7886593, 5225877 ####[facility] [address] [place] [address] Calcium [Mass/Vol] 9.1 mg/dL Normal 8.9-11.1 [facility] Comment on above: Order Comment: The s pecimen for this test has been found unacceptable due to hemolysis as determined by Lia was contacted and the following determination was made to redraw the patient. Performed By: #### 2 620700, 6950564, 3827904, 05367053, 1766330, 0461141, 7565687 ####[facility] [address] [place] [address] Chloride [Moles/Vol] 101 mmol/L Normal 101-111 [facility] Comment on above: Order Comment: The s pecimen for this test has been found unacceptable due to hemolysis as determined by MARTHA.Pia was contacted and the following determination was made to redraw the patient. Performed By: #### 2 305033, 2183758, 1393343, 05601213, 1401394, 7026665, 2930260 ####[facility] [address] [place] [address] CO2 [Moles/Vol] 28 mmol/L Normal 21-31 [facility] Comment on above: Order Comment: The s pecimen for this test has been found unacceptable due to hemolysis as determined by MARTHA.Pia was contacted and the following determination was made to redraw the patient. Performed By: #### 2 727225, 6423211, 7497949, 18271311, 9435300, 0080478, 0048864 ####[facility] [address] [place] [address] Creatinine [Mass/Vol] 0.9 mg/dL Normal 0.5-1.3 [facility] Comment on above: Order Comment: The s pecimen for this test has been found unacceptable due to hemolysis as determined by Lia was contacted and the following determination was made to redraw the patient. Performed By: #### 2 035323, 3064674, 9693784, 83478591, 4395857, 5070415, 4316636 ####[facility] [address] [place] [address] Glucose [Mass/Vol] 107 mg/dL Normal 55-199 [facility] Comment on above: Order Comment: The s pecimen for this test has been found unacceptable due to hemolysis as determined by MARTHA.Pia was contacted and the following determination was made to redraw the patient. Result Comment: If t his glucose result represents a fasting glucose, interpretation should refer to the following reference range: 55-99 mg/dL Performed By: #### 2 575349, 7030527, 4291404, 72187562, 0961240, 6609194, 8890809 ####[facility] [address] [place] [address] Potassium [Moles/Vol] 4.3 mmol/L Normal 3.5-5.3 [facility] Comment on above: Order Comment: The s pecimen for this test has been found unacceptable due to hemolysis as determined by Lia was contacted and the following determination was made to redraw the patient. Performed By: #### 2 345436, 8918440, 5318519, 37658550, 1032101, 1953740, 4136444 ####[facility] [address] [place] [address] Sodium [Moles/Vol] 137 mmol/L Normal 135-145 [facility] Comment on above: Order Comment: The s pecimen for this test has been found unacceptable due to hemolysis as determined by Lia was contacted and the following determination was made to redraw the patient. Performed By: #### 2 302486, 0408017, 8707720, 69960699, 9452832, 9013224, 0181974 ####[facility] [address] [place] [address] Urea nitrogen [Mass/Vol] 16 mg/dL Normal 5-21 [facility] Comment on above: Order Comment: The s pecimen for this test has been found unacceptable due to hemolysis as determined by SW.Pia was contacted and the following determination was made to redraw the patient. Performed By: #### 2 059940, 5008436, 5062809, 55003522, 4990245, 4574192, 6764808 ####[facility] [address] [place] [address] Urea nitrogen/Creatini ne [Mass ratio] 18 No Units Normal 10-20 [facility] Comment on above: Order Comment: The s pecimen for this test has been found unacceptable due to hemolysis as determined by SW.Pia was contacted and the following determination was made to redraw the patient. Performed By: #### 2 665116, 5471936, 1474002, 85006297, 3178903, 2573992, 1356089 ####[facility] [address] [place] [address] CBC w/ Auto Diffon 1 Erythrocyte distribution width (RBC) [Ratio] 13.5 % Normal 10.9-14.2 [facility] Comment on above: Performed By: #### 2 792369, 0927844, 9193216, 76308044, 1338277, 2898971, 1913857 ####[facility] [address] [place] [address] Hematocrit (Bld) [Volume fraction] 48.9 % Normal 37.7-49.0 [facility] Comment on above: Performed By: #### 2 305484, 6840221, 3003727, 76939230, 7460568, 0191967, 0739272 ####[facility] [address] [place] [address] Hemoglobin (Bld) [Mass/Vol] 17.2 g/dL Normal 13.5-17.5 [facility] Comment on above: Performed By: #### 2 332975, 5749903, 5420586, 47983481, 7714297, 4263777, 8193023 ####[facility] [address] [place] [address] MCH (RBC) [Entitic mass] 28.9 pg Normal 27.0-34.0 [facility] Comment on above: Performed By: #### 2 846218, 4671419, 5388621, 91420898, 8232483, 9591125, 6184143 ####[facility] [address] [place] [address] MCHC (RBC) [Mass/Vol] 35.2 g/dL Normal 31.4-36.0 [facility] Comment on above: Performed By: #### 2 743717, 2111840, 4004787, 79332892, 5179948, 3057117, 1562427 ####[facility] [address] [place] [address] MCV (RBC) [Entitic vol] 82.1 fL Normal 80.0-100.0 [facility] Comment on above: Performed By: #### 2 177314, 4328704, 3409671, 22898185, 1205248, 3521019, 0209278 ####[address] [address] Platelet mean volume (Bld) [Entitic vol] 8.6 fL Normal 6.4-10.8 [facility] Comment on above: Performed By: #### 2 500247, 8252356, 7045560, 51821084, 2063202, 8061091, 6151989 ####[address] [address] Platelets (Bld) [#/Vol] 241.0 E9/L Normal 150.0-500. 0 [facility] Comment on above: Performed By: #### 2 580958, 2655905, 6277542, 87452234, 3940438, 3574243, 1281779 ####[address] [address] RBC (Bld) [#/Vol] 6.0 E12/L High 4.3-5.9 [facility] Comment on above: Performed By: #### 2 386654, 2871789, 1305950, 29334507, 6720139, 1781092, 2906888 ####[facility] [address] [place] [address] WBC corrected for nucl RBC Auto (Bld) [#/Vol] 8.0 E9/L Normal 4.0-11.0 [facility] Comment on above: Performed By: #### 2 195752, 1238532, 6984623, 55884353, 9158490, 1429054, 7846202 ####[facility] [address] [place] [address] Capillary Glucose POCon 11-08 Glucose [Mass/Vol] 89 mg/dL Normal 55-99 [facility] Comment on above: Result Comment: King frey RN/ Performed By: #### 2 [id number] ####[facility] [address] [place] [address] Consent for Treatmenton 11-08 Consent for Treatment [id number]:127 Normal [facility] ED Clinical Summaryon 2020 ED Clinical Summary [address] [address] ED Clinical Summary Person Information Name: LAURA FABIAN II [facility] Age: 20 Years : 2000 Sex: Male Language: Peruvian PCP: PARISA KATHLEEN MD Marital Status: Single Phone: [phone] Visit Id: Visit Reason: Abdominal pain; Syncope/Near syncope; PASSED OUT FROM ABDOMINAL PAIN 4AM Speciality: Acuity: 3 Enc Type: Emergency Med Service: Emergency Arrival: 12/05/2020 07:21:26 Discharge: 12/05/2020 10:34:23 LOS: 000 03:13 Checkin: 12/05/2020 07:21:26 Checkout: 12/05/2020 10:34:23 Dispo Type: Home (Routine DC) EVENTS: Event Name Event Status Request Date/Time Start Date/Time Complete Date/Time Arrive Complete 12/05/2020 07:21:26 12/05/2020 07:21:26 12/05/2020 07:21:26 Document Home Meds Request 12/05/2020 07:21:26 Triage Complete 12/05/2020 07:21:26 12/05/2020 07:31:01 12/05/2020 07:31:01 Bed Assign Complete 12/05/2020 07:27:03 12/05/2020 07:27:03 12/05/2020 07:27:03 Dr Exam Complete 12/05/2020 07:27:03 12/05/2020 07:27:11 12/05/2020 07:27:11 RN Exam Complete 12/05/2020 07:27:03 12/05/2020 07:39:02 12/05/2020 07:39:02 Registration Complete 12/05/2020 07:27:11 12/05/2020 08:16:59 12/05/2020 08:16:59 EKG Complete 12/05/2020 07:29:15 12/05/2020 07:42:27 Pending Labs Complete 12/05/2020 07:35:19 12/05/2020 07:35:19 12/05/2020 07:35:20 Pending Labs Complete 12/05/2020 07:36:32 12/05/2020 09:16:32 Lab Complete 12/05/2020 07:36:32 12/05/2020 09:16:32 Urine Collect Complete 12/05/2020 07:36:32 12/05/2020 08:28:05 Pending Labs Complete 12/05/2020 07:57:41 12/05/2020 07:57:41 12/05/2020 09:16:34 Lab Complete 12/05/2020 07:57:41 12/05/2020 07:57:41 12/05/2020 09:16:34 Pending Labs Complete 12/05/2020 07:59:09 12/05/2020 07:59:09 12/05/2020 07:59:10 Pending Labs Complete 12/05/2020 08:08:49 12/05/2020 08:08:49 12/05/2020 08:08:56 Lab Complete 12/05/2020 08:08:49 12/05/2020 08:08:49 12/05/2020 08:08:56 Reg Complete Request 12/05/2020 08:16:59 US Cancel 12/05/2020 09:40:20 12/05/2020 09:52:25 12/05/2020 09:54:53 Pending Labs Cancel 12/05/2020 09:40:40 12/05/2020 09:44:25 Lab Cancel 12/05/2020 09:40:40 12/05/2020 09:44:25 Pending Labs Complete 12/05/2020 09:45:05 12/05/2020 09:45:05 12/05/2020 09:56:41 Lab Complete 12/05/2020 09:45:05 12/05/2020 09:45:05 12/05/2020 09:56:41 US Complete 12/05/2020 09:54:52 12/05/2020 09:54:53 12/05/2020 10:18:36 Discharge Complete 12/05/2020 10:19:59 12/05/2020 10:34:37 12/05/2020 10:34:37 Transfer Complete 12/05/2020 10:34:37 12/05/2020 10:34:37 12/05/2020 10:34:37 ADDRESS: [address] [place] [phone] [facility] DOC NOTES: MEDICAL INFORMATION: Prescriptions Given: Medications to Continue with No Changes Other Medications cetirizine (cetirizine 10 mg Tab) 1 Tablets By Mouth every day as needed Allergy symptoms. Refills: 2. ondansetron (ondansetron 4 mg Dis Tab) one po q 6 hrs prn nausea/vomiting. risperidone (risperidone 2 mg oral tablet, disintegrating) 1 Tablets By Mouth at bedtime. Refills: 1. PATIENT EDUCATION INFORMATION: Instructions: Infectious Mononucleosis; Syncope; Abdominal Pain, Adult Follow up: With: Address: When: PARISA KATHLEEN [address] [place], [place] [id number] Business (1) In 3 days DIAGNOSIS: Abdominal pain; Mononucleosis; Syncope Normal [facility] ED Note-Nursingon 12-05-2020 ED Note-Nursing Pt updated on condit ion per Dr Canela Normal [facility] ED Note-Physicianon 12-06-19 ED Note-Physician Basic Information Time Seen: Kyle Canela DO 12/05/2020 07:27 Chief Complaint Pt reports he got up around 0400 to get a drink and when he got to the fridge he had a syncopal event. Denies n/v.d Mild abd pain. History of Present Illness 20 male presents to the emergency department with abdominal pain and syncope. Patient states around 4:00 this morning he got up to drink some milk and he drank a whole bunch of milk and at this point he developed some mid abdominal pain and next thing he knows he was on the ground as he did have syncopal episode. Patient denies any associated nausea vomiting or diarrhea he has had no recent injuries or illnesses. Patient did not sustain any injury during this syncopal episode that he is aware of. Patient does describe a little bit of abdominal pain since then but states it is much improved now when compared to previously. Patient does have prior appendectomy but denies any other prior abdominal surgeries no other significant past medical history. He did state he recently completed a course of amoxicillin for an infected tooth but this seems to have gotten better. He has never had any history of syncope before he is denying any chest pain difficulty breathing cough or fevers no dysuria no other associated symptoms. No other aggravating or relieving factors no other associated symptoms no other prior treatments or complaints. Family: Reviewed and noncontributory Social: lives at home Review of systems negative unless otherwise specified in the HPI. Physical Exam Vitals & Measurements T: 36.9 ?C (Oral) HR: 92(Peripheral) RR: 18 BP: 145/91 SpO2: 96% HT: 177.8 cm HT: 177.8 cm WT: 140.7 kg WT: 140.7 kg BMI: 44.51 General: The patient appears well and in no apparent distress. Patient is resting comfortably on cart. Skin: Warm, dry, no pallor noted. Head: Normocephalic, atraumatic Neck: No JVD Eye: PERRLA, EOMI ENT: Moist mucus membranes Cardiovascular: Regular rate normal peripheral perfusion Respiratory: No respiratory distress no accessory muscle use no obvious audible wheezing Chest Wall: no deformity Musculoskeletal: normal ROM, no deformity, no swelling GI: No obvious distention soft nontender nondistended no guarding rebounding or rigidity Neurological: A&O moves all extremities equal strength and symmetry Psychiatric: Cooperative and appropriate Medical Decision Making Work-up in the ER has been reviewed and noted. Patient does have mild elevation of LFTs therefore mono was ordered and is positive. Gallbladder ultrasound did show mild dilatation of the duct however there is no evidence of cholecystitis no evidence of stones. Patient is discharged home with a note to return to school but no strenuous activity until he is seen by his primary care physician. Assessment/Plan Abdominal pain (R10.9: Unspecified abdominal pain) Mononucleosis (B27.90: Infectious mononucleosis, unspecified without complication) Syncope (R55: Syncope and collapse) Orders: Automated Diff Basic Metabolic Panel CBC w/ Auto Diff eGFR Extra SST Tube Hepatic Function Panel Lipase Level Mononucleosis Screen UA With Cult Reflex US Abdomen, Limited Disposition Plan Discharge Prescription List Prescriptions No active prescription medications Follow-up With When Contact Information PARISA KATHLEEN In 3 days [facility] [employer] (1) Additional Instructions: Patient Education Infectious Mononucleosis Syncope Abdominal Pain, Adult Problem List/Past Medical History Ongoing Bipolar 1 disorder, manic, mild History of regular medication use Historical No qualifying data Procedure/Surgical History Tonsillectomy and adenoidectomy. Medications Inpatient No active inpatient medications Home cetirizine 10 mg Tab, 10 mg= 1 tab(s), Oral, Daily, PRN, 2 refills ondansetron 4 mg Dis Tab, See Instructions risperidone 2 mg oral tablet, disintegrating, 2 mg= 1 tab(s), Oral, Bedtime, 1 refills Allergies Focalin (Unknown) Family History Alcoholism: Mother and Grandparent. Anxiety: Mother and Grandparent. Bipolar: Mother, Father and Grandparent. Depression: Mother, Father, Grandparent, Grandparent and Grandparent. Mood changes-problems or irritability: Grandparent. Suicide attempt: Mother. Lab Results WBC: 8 E9/L (12/05/20 07:52:00) RBC: 6 E12/L High (12/05/20 07:52:00) Hgb: 17.2 gm/dL (12/05/20 07:52:00) Hct: 48.9 % (12/05/20 07:52:00) MCV: 82.1 fL (12/05/20 07:52:00) MCH: 28.9 pg (12/05/20 07:52:00) MCHC: 35.2 gm/dL (12/05/20 07:52:00) RDW: 13.5 % (12/05/20 07:52:00) Platelet: 241 E9/L (12/05/20 07:52:00) MPV: 8.6 fL (12/05/20 07:52:00) Neutro Auto: 48.1 % (12/05/20 07:52:00) Lymph Auto: 39.6 % (12/05/20 07:52:00) [facility] Auto: 7.9 % (12/05/20 07:52:00) Eos Auto: 3.6 % (12/05/20 07:52:00) Basophil Auto: 0.8 % (12/05/20 07:52:00) Neutro Absolute: 3.9 E9/L (12/05/20 07:52:00) Lymph Absolute: 3.2 E9/L (04/ (more content not included)... Normal [facility] Comment on above: Result Comment: Elec tronically Signed By: Kyle Canela DO\.br\Date and Time Signed: 12/05/20 10:22 EDT ED Patient Education Noteon 12-05-2020 ED Patient Education Note Gastroenterology Abdominal Pain, Adult Pain in the abdomen (abdominal pain) can be caused by many things. Often, abdominal pain is not serious and it gets better with no treatment or by being treated at home. However, sometimes abdominal pain is serious. Your health care provider will ask questions about your medical history and do a physical exam to try to determine the cause of your abdominal pain. Follow these instructions at home: Medicines ? Take zhsz-mpz-ptmenpr and prescription medicines only as told by your health care provider. ? Do not take a laxative unless told by your health care provider. General instructions ? Watch your condition for any changes. ? Drink enough fluid to keep your urine pale yellow. ? Keep all follow-up visits as told by your health care provider. This is important. Contact a health care provider if: ? Your abdominal pain changes or gets worse. ? You are not hungry or you lose weight without trying. ? You are constipated or have diarrhea for more than 2?3 days. ? You have pain when you urinate or have a bowel movement. ? Your abdominal pain wakes you up at night. ? Your pain gets worse with meals, after eating, or with certain foods. ? You are vomiting and cannot keep anything down. ? You have a fever. ? You have blood in your urine. Get help right away if: ? Your pain does not go away as soon as your health care provider told you to expect. ? You cannot stop vomiting. ? Your pain is only in areas of the abdomen, such as the right side or the left lower portion of the abdomen. Pain on the right side could be caused by appendicitis. ? You have bloody or black stools, or stools that look like tar. ? You have severe pain, cramping, or bloating in your abdomen. ? You have signs of dehydration, such as: ? Dark urine, very little urine, or no urine. ? Cracked lips. ? Dry mouth. ? Sunken eyes. ? Sleepiness. ? Weakness. ? You have trouble breathing or chest pain. Summary ? Often, abdominal pain is not serious and it gets better with no treatment or by being treated at home. However, sometimes abdominal pain is serious. ? Watch your condition for any changes. ? Take puxi-aib-zvsgkkp and prescription medicines only as told by your health care provider. ? Contact a health care provider if your abdominal pain changes or gets worse. ? Get help right away if you have severe pain, cramping, or bloating in your abdomen. This information is not intended to replace advice given to you by your health care provider. Make sure you discuss any questions you have with your health care provider. Document Released: 05/05/2006 Document Revised: 12/04/2019 Document Reviewed: 12/04/2019 [employer] Patient Education ? 2019 [employer] Infectious Disease Infectious Mononucleosis Infectious mononucleosis is a viral infection. It is often referred to as mono. It causes symptoms that affect various areas of the body, including the throat, upper air passages, and lymph glands. The liver or spleen may also be affected. The virus spreads from person to person (is contagious) through close contact. The illness is usually not serious, and it typically goes away in 2?4 weeks without treatment. In rare cases, symptoms can be more severe and last longer, sometimes up to several months. What are the causes? This condition is commonly caused by the Shae?Tracy virus. This virus spreads through: ? Having contact with an infected person's saliva or other bodily fluids, often through: ? Kissing. ? Sex. ? Coughing. ? Sneezing. ? Sharing utensils or drinking glasses with an infected person. ? Receiving blood from an infected donor (blood transfusion). ? Receiving an organ from an infected donor (organ transplant). What increases the risk? You are more likely to develop this condition if: ? You are 15?24 years old. What are the signs or symptoms? Symptoms of this condition usually appear 4?6 weeks after infection. Symptoms may develop slowly and occur at different times. Common symptoms include: ? Sore throat. ? Headache. ? Extreme fatigue. ? Muscle aches. ? Swollen glands. ? Fever. ? Poor appetite. ? Rash. Other symptoms include: ? Enlarged liver or spleen. ? Nausea. ? Abdominal pain. How is this diagnosed? This condition may be diagnosed based on: ? Your medical history. ? Your symptoms. ? A physical exam. ? Blood tests to confirm the diagnosis. How is this treated? There is no cure for this condition. Infectious mononucleosis usually goes away on its own with time. Treatment can help relieve symptoms and may include: ? Taking medicines to relieve pain and fever. ? Drinking plenty of fluids. ? Getting a lot of rest. ? Medicine (corticosteroids)to reduce swelling. This may be used if swelling in the throat causes breathing or swallowing problems. In some severe cases, treatm (more content not included)... Normal [facility] ED Patient Summaryon 021 ED Patient Summary [address] [address] Patient Discharge Instructions Person Information Name: LAURA FABIAN II Age: 20 Years Arrival Date: 12/05/2020 07:21:26 Discharge Diagnosis: Abdominal pain; Mononucleosis; Syncope Primary Care Physician: PARISA KATHLEEN MD Provider Information Primary Provider: Kyle Canela DO Advanced Shroud Line Tier:None The exam and treatment you received in the Emergency Department were for an urgent problem and are not intended as complete care. It is important that you follow up with a doctor, nurse practitioner, or physician?s diet assistant for ongoing care. If your symptoms become worse or you do not improve as expected and you are unable to reach your usual health care provider, you should return to the Emergency Department. We are available 24 hours a day. LAURA FABIAN II has been given the following list of patient education materials, prescriptions and follow-up instructions: Follow-up Instructions: With: Address: When: PARISA KATHLEEN [address] [place] [address] Business (1) In 3 days In the event that this physician does not participate in your insurance network, please consult with your insurance company to find a nearby participating provider. Patient Education Materials: Infectious Mononucleosis; Syncope; Abdominal Pain, Adult A MESSAGE TO ALL PATIENTS REGARDING OPIOIDS PRESCRIPTION OPIOIDS: WHAT YOU NEED TO KNOW Prescription opioids can be used to help relieve vqiiirza-or-piwdgc pain and are often prescribed following a surgery or injury, or for certain health conditions. These medications can be an important part of the treatment but also come with serious risks. It is important to work with your healthcare provider to make sure you are getting the safest, most effective care. WHAT ARE THE RISKS AND SIDE EFFECTS OF OPIOID USE? Prescription opioids carry serious risks of addiction and overdose, especially with prolonged use. An opioid overdose, often marked by slowed breathing, can cause sudden . The use of prescription opioids can have a number of side effects as well, even when taken as directed: ? Tolerance?meaning you might need to take more of the medication for the same pain relief ? Physical dependence?meaning you have symptoms of withdrawal when a medication is stopped ? Increased sensitivity to pain ? Constipation ? Nausea, vomiting, and dry mouth ? Sleepiness and dizziness ? Confusion ? Depression ? Low levels of testosterone that can result in lower sex drive, energy, and strength ? Itching and sweating RISKS ARE GREATER WITH: ? History of drug misuse, substance use disorder, or overdose ? Mental health conditions (such as depression or anxiety) ? Sleep apnea ? Older age (65 years and older) ? Avoid alcohol while taking prescription opioids. Also, unless specifically advised by your health care provider, medications to avoid include: ? Benzodiazepines (such as Xanax or Valium) ? Muscle relaxants (such as Soma or Flexeril) ? Hypnotics (such as Ambien or Lunesta) ? Other prescription opioids KNOW YOUR OPTIONS Talk to your health care provider about ways to manage your pain that don?t involve prescription opioids. Some of these options may actually work better and have fewer risks and side effects. Options may include: ? Pain relievers such as acetaminophen, ibuprofen, and naproxen ? Some medication that are also used for depression or seizures ? Physical therapy and exercise ? Cognitive behavioral therapy, a psychological, goal-directed approach, in which patients learn how to modify physical, behavioral, and emotional triggers of pain and stress. IF YOU ARE PRESCRIBED OPIOIDS FOR PAIN: ? Never take opioids in greater amounts or more often than prescribed. ? Follow up with your primary health care provider. o Work together to create a plan on how to manage your pain. o Talk about ways to help manage your pain that don?t involve prescription opioids. o Talk about any and all concerns and side effects. ? Help prevent misuse and abuse o Never sell or share prescription opioids. o Never use another person?s prescription opioids. ? Store prescription opioids in a secure place and out of reach of others (this may include visitors, children, friends, and family). ? Safely dispose of unused prescription opioids: Find your community drug take-back program or your pharmacy mail-back program, or flush them down the toilet, following guidance from the Food and Drug Administration (www.fda.gov/Drugs/ResourcesFo rYou). ? Visit www.cdc.gov/drugoverdose to learn about the risks of opioids abuse and overdose. ? If you believe you may be struggling with addiction, tell your health home health aide caregiver and ask for guidance or call SAMHSA?S National Helpline at (more content not included)... Normal [facility] Hep Func Panelon 12-05-2020 Albumin [Mass/Vol] 4.2 g/dL Normal 3.3-5.0 [facility] Comment on above: Order Comment: The s pecimen for this test has been found unacceptable due to hemolysis as determined by MARTHA.Pia was contacted and the following determination was made to be redrawn. Performed By: #### 2 [id number], [id number], 6968297, 51376556, 2663895, 6295270, 2671235 ####[facility] [address] [place] [address] Albumin/Globulin (S) [Mass conc ratio] 1.3 Normal 1.1-2.2 [facility] Comment on above: Order Comment: The s pecimen for this test has been found unacceptable due to hemolysis as determined by SW.Pia was contacted and the following determination was made to be redrawn. Performed By: #### 2 342902, 5364552, 8868106, 85764480, 8618693, 7018229, 8932447 ####[facility] [address] [place] [address] ALP [Catalytic activity/Vol] 71 Int._Unit/L Normal 21-98 [facility] Comment on above: Order Comment: The s pecimen for this test has been found unacceptable due to hemolysis as determined by SW.Pia was contacted and the following determination was made to be redrawn. Performed By: #### 2 590685, 2462246, 7775955, 52225815, 6879614, 9605094, 9329047 ####[facility] [address] [place] [address] ALT No additional P-5'-P [Catalytic activity/Vol] 81 Int._Unit/L High 6-46 [facility] Comment on above: Order Comment: The s pecimen for this test has been found unacceptable due to hemolysis as determined by SW.Pia was contacted and the following determination was made to be redrawn. Performed By: #### 2 444803, 5999254, 0559416, 75108339, 9677266, 2490895, 5491107 ####[facility] [address] [place] [address] AST [Catalytic activity/Vol] 54 Int._Unit/L High 5-43 [facility] Comment on above: Order Comment: The s pecimen for this test has been found unacceptable due to hemolysis as determined by SW.Pia was contacted and the following determination was made to be redrawn. Performed By: #### 2 567081, 6989927, 8099175, 39834752, 1223714, 2938806, 7836596 ####[facility] [address] [place] [address] Bilirubin [Mass/Vol] 0.9 mg/dL Normal 0.0-1.1 [facility] Comment on above: Order Comment: The s pecimen for this test has been found unacceptable due to hemolysis as determined by SW.Pia was contacted and the following determination was made to be redrawn. Performed By: #### 2 919209, 3269692, 9214085, 83510207, 3825525, 2079238, 2951649 ####[facility] [address] [place] [id number] Bilirubin.direct [Mass/Vol] 0.1 mg/dL Normal 0.1-0.4 [facility] Comment on above: Order Comment: The s pecimen for this test has been found unacceptable due to hemolysis as determined by SW.Pia was contacted and the following determination was made to be redrawn. Performed By: #### 2 104549, 1628052, 3824912, 37492856, 7155440, 6909580, 8386982 ####[facility] [address] [place] [address] Bilirubin.indirec t [Mass or moles/Vol] 0.8 mg/dL Normal 0.1-0.9 [facility] Comment on above: Order Comment: The s pecimen for this test has been found unacceptable due to hemolysis as determined by SW.Pia was contacted and the following determination was made to be redrawn. Performed By: #### 2 770025, 5523021, 5297136, 61685591, 4986964, 1526883, 9750642 ####[facility] [address] [place] [address] Globulin (S) [Mass/Vol] 3.3 g/dL Normal 1.4-4.0 [facility] Comment on above: Order Comment: The s pecimen for this test has been found unacceptable due to hemolysis as determined by MARTHA.Pia was contacted and the following determination was made to be redrawn. Performed By: #### 2 531903, 8371760, 7738889, 56720751, 7339704, 4718998, 2454747 ####[facility] [address] [place] [address] Protein [Mass/Vol] 7.5 g/dL Normal 6.0-7.8 [facility] Comment on above: Order Comment: The s pecimen for this test has been found unacceptable due to hemolysis as determined by SW.Pia was contacted and the following determination was made to be redrawn. Performed By: #### 2 147527, 0880104, 0860163, 44596455, 7508292, 8202458, 4025658 ####[facility] [address] [place] [address] Lipase Levelon 12-05-2020 Lipase [Catalytic activity/Vol] 30 U/L Normal 13-58 [facility] Comment on above: Order Comment: The s pecimen for this test has been found unacceptable due to hemolysis as determined by MARTHA.Pia was contacted and the following determination was made to be redrawn. Performed By: #### 2 137932, 4426765, 7137140, 08768937, 1551847, 1189020, 3605938 ####[facility] [address] [place] [address] Monitor Recordon 12-05-2020 Monitor Record [id number] Normal [facility] Screenon 12-05-2020 Heterophile Ab LA Ql (S) Positive Abnormal Negative [facility] Comment on above: Performed By: #### 2 952877, 3102228, 2169667, 55694838, 5968174, 2949989, 3860094 ####[facility] [address] [place] [address] UA With Cult Reflexon 2020 Bilirubin Ql (U) Negative Normal Negative [facility] Comment on above: Performed By: #### 1 [id number] ####[facility] [address] [place] [address] Clarity (U) CLEAR Normal Clear [facility] Comment on above: Performed By: #### 1 [id number] ####[address] [address] Color (U) YELLOW Normal Yellow [facility] Comment on above: Performed By: #### 1 9667791 ####[address] [address] Epithelial cells.squamous LM.HPF (Urine sed) [#/Area] 0-2 Normal 0-2 [facility] Comment on above: Performed By: #### 1 5287296 ####[address] [address] Glucose Test strip (U) [Mass/Vol] Negative Normal Negative [facility] Comment on above: Performed By: #### 1 7211948 ####[address] [address] Hemoglobin Ql (U) Negative Normal Negative [facility] Comment on above: Performed By: #### 1 3094523 ####[address] [address] Ketones (U) [Mass/Vol] Negative Normal Negative [facility] Comment on above: Performed By: #### 1 0515319 ####[address] [address] [place].plasma/Li thium.RBC (Bld) [Mass ratio] 0-3 Normal 0-3 [facility] Comment on above: Performed By: #### 1 2871397 ####[address] [address] Mucus Ql (Urine sed) 1+ Normal [facility] Comment on above: Performed By: #### 1 3341670 ####[address] [address] Nitrite Ql (U) Negative Normal Negative [facility] Comment on above: Performed By: #### 1 8892494 ####[address] [address] pH (U) 6.0 [pH] Invalid Interpretation Code 5.0-9.0 [facility] Comment on above: Performed By: #### 1 6958325 ####[address] [address] Protein (U) [Mass/Vol] Negative Normal Negative [facility] Comment on above: Performed By: #### 1 9567881 ####[address] [address] Specific gravity (U) [Rel density] 1.025 Invalid Interpretation Code 1.005-1.03 0 [facility] Comment on above: Performed By: #### 1 7571142 ####[address] [address] Type of Urine collection method Clean Catch Normal [facility] Comment on above: Performed By: #### 1 0715716 ####[address] [address] Urobilinogen Qn (U) 0.2 {Terence'U}/dL Normal 0.0-1.0 [facility] Comment on above: Performed By: #### 1 0433070 ####[address] [address] WBC Auto Ql (U) Negative Normal Negative [facility] Comment on above: Performed By: #### 1 [id number] ####[address] [address] WBC LM.HPF (Urine sed) [#/Area] 0-5 Normal 0-5 [facility] Comment on above: Performed By: #### 1 9722576 ####[address] [address] US Abdomen, Limitedon 2020 US Abdomen, Limited Exam Date/Time: 12/05/2020 10:18 EDT Reason for Exam: Abdominal pain Report IMPRESSION: THERE ARE NO GALLSTONES. THERE APPEARS TO BE INTRA AND EXTRA HEPATIC BILE DUCT DILATATION, THE COMMON BILE DUCT MEASURES 13 MILLIMETERS. CLINICAL HISTORY: Abdominal pain COMPARISON: NONE. FINDINGS: The liver is normal in size and with inhomogeneous echotexture which may indicate focal fatty sparing. There is intrahepatic bile duct dilatation with moderate distention of the common bile duct measuring up to 1.3 cm in greatest diameter. There is no free fluid. The gallbladder contains no filling defects or wall abnormalities. There is no pericholecystic fluid. the gallbladder wall measures 3 mm FINAL REPORT Dictated: 12/05/2020 10:40 am Óscar Snyder MD, V. Signed (Electronic Signature): 12/05/2020 10:40 am Signed by: Óscar Snyder MD, V. Transcribed by: ADITYA Technologist: WESLY Ng [facility] eGFRon 12-05-2020 GFR/1.73 sq M.predicted among blacks MDRD (S/P/Bld) [Vol rate/Area] mL/min/{1.73_m2} Normal >=59 [facility] Comment on above: Order Comment: Order added by Discern Expert. Result Comment: eGFR is race adjusted. AA=. Performed By: #### 2 715371, 2684350, 4214238, 41676195, 0144580, 5939173, 5839321 ####[facility] [address] [place] [address] GFR/1.73 sq M.predicted among non-blacks MDRD (S/P/Bld) [Vol rate/Area] mL/min/{1.73_m2} Normal >=59 [facility] Comment on above: Order Comment: Order added by Discern Expert. Result Comment: Light Rail Operator nehemias kidney disease could be indicated at eGFR's of less than 60 mL/min/1.73m2. Kidney failure is indicated at less than 15 mL/min/1.73m2. Performed By: #### 2 250530, 2193102, 4715094, 16781356, 1555417, 4515254, 9297358 ####[facility] [address] [place] [address] Covid-19 PCR (CVDTBH)on 07-10 Covid-19 PCR DETECTED Abnormal NOT DETECTED [facility] Comment on above: Result Comment: This test is not yet approved or cleared by the [place] FDA. When there are no FDA-approved or cleared tests available, and other criteria are met, FDA can make tests available under an emergency access mechanism called an Emergency Use Authorization (EUA). The EUA for this test is supported by the [place] of Health and Human Service's (HHS's) declaration that circumstances exist to justify the emergency use of in vitro diagnostics for the detection and/or diagnosis of the virus that causes COVID-19. This EUA will remain in effect (meaning this test can be used) for the duration of the COVID-19 declaration justifying emergency of IVDs, unless it is terminated or revoked by FDA (after which the test may no longer be used). Performed By: #### C VDTB #### [facility] [address] [address] Brian Rodrigues EUA Statement SEE BELOW Normal [facility] Comment on above: Result Comment: This test is not yet approved or cleared by the [place] FDA. When there are no FDA-approved or cleared tests available, and other criteria are met, FDA can make tests available under an emergency access mechanism called an Emergency Use Authorization (EUA). The EUA for this test is supported by the [place] of Health and Human Service?s (HHS?s) declaration that circumstances exist to justify the emergency use of in vitro diagnostics for the detection and/or diagnosis of the virus that causes COVID-19. This EUA will remain in effect (meaning this test can be used) for the duration of the COVID-19 declaration justifying emergency of IVDs, unless it is terminated or revoked by FDA (after which the test may no longer be used). When diagnostic testing is negative, the possibility of a false negative should be considered in the context of a patients recent exposures and the presence of clinical signs and symptoms consistent with SARS-CoV-2. Performed By: #### C VDTB #### [facility] [address] [address] Brian Rodrigues COVID-19 PCRon 06-05-2020 SARS-CoV-2, JORGE L Not Detected Normal Not Detected [facility] Comment on above: Result Comment: This nucleic acid amplification test was developed and its performance characteristics determined by [employer] Nucleic acid amplification tests include PCR and TMA. This test has not been FDA cleared or approved. This test has been authorized by FDA under an Emergency Use Authorization (EUA). This test is only authorized for the duration of time the declaration that circumstances exist justifying the authorization of the emergency use of in vitro diagnostic tests for detection of SARS-CoV-2 virus and/or diagnosis of COVID-19 infection under section 564(b)(1) of the Act, 21 U.S.C. 360bbb-3(b) (1), unless the authorization is terminated or revoked sooner. When diagnostic testing is negative, the possibility of a false negative result should be considered in the context of a patient's recent exposures and the presence of clinical signs and symptoms consistent with COVID-19. An individual without symptoms of COVID-19 and who is not shedding SARS-CoV-2 virus would expect to have a negative (not detected) result in this assay. Performed By: #### C VDPCR #### [facility] [address] [id number] Brian Rodrigues [facility] 10-09-2018 [facility] - Established No report was sent Normal [facility] - [facility] 07-11-2018 [facility] - Established Chief Complaint Accompanied by mother and father. follow up epigastric pain and vomiting. History of Present Illness 18 y M here for follow up of epigastric pain, chronic vomiting and fatty liver. High whey IgG. EGD 05/31 showed esophagitis with 10-12 Eosinophils per HPF and he had some duodenitis. Whey IgG 75 which is high. He is on omeprazole 20 mg twice a day and has Zofran for nausea. He had an elevated insulin and an increased ALT. If not better we will do a milk free diet. If he forgets the omeprazole he will have pain. No vomiting. He has reflux 2-3 times a week and it hernandez. The medicine is helping. No problems with milk He can drink a lot one day and the next day he can't have it. He has gained 6 lbs since his last visit. He is 263 lbs. He doesn't have much pop. They have an appt with the dietitian. He doesn't fell bad after milk. He had a couple of nose bleeds. They are not hard to stop and BP is ok. No increased burp or hiccup. No increased gas. BM's are normal and no diarrhea or hard stools 1 per day. He has not been ill. He did not get a flu shot. Review of Systems Constitutional: excessive weight gain, but no fever, no fatigue, no change in appetite and no weight loss. Eyes: no vision problems and no eye pain. ENT: epistaxis, but no ear pain, no sinus or nasal congestion, no mouth ulcers and no sore throat. Cardiovascular: no chest pain. Respiratory: cough, but no wheezing and no shortness of breath. Gastrointestinal: as noted in HPI. Genitourinary: no increased urinary frequency and no dysuria. Musculoskeletal: no back pain . foot ball and he hurt his left wrist. Integumentary: skin rash, but no skin lesion(s) . he had a yeast infection in the groin but it healed with medication. Neurological: no headaches, no dizziness and no fainting. Endocrine: no short stature. Hematologic/Lymphatic: as noted in HPI, no excessive bleeding and no excessive bruising. Psychiatric: no anxiety, no depression and no sleep disturbance. Active Problems Abdominal pain, epigastric (789.06) (R10.13) Abdominal pain, generalized (789.07) (R10.84) Bipolar depression (296.50) (F31.30) Chronic cough (786.2) (R05) Diarrhea (787.91) (R19.7) Fatty liver (571.8) (K76.0) Gastroesophageal reflux (530.81) (K21.9) Vomiting (787.03) (R11.10) Past Medical History History of attention deficit hyperactivity disorder (V11.8) (Z86.59) History of concussion (V15.52) (Z87.820) Personal history of Helicobacter infection (V12.09) (Z86.19) Surgical History History of Appendectomy History of Tonsillectomy With Adenoidectomy Family History Family history of Drug allergy sulfa, naprosyn, prednison, motrin Family history of depression (V17.0) (Z81.8) Family history of multiple sclerosis (V17.2) (Z82.0) Family history of Learning disorder Family history of kidney stones (V18.69) (Z84.1) Family history of migraine headaches (V17.2) (Z82.0) Family history of depression (V17.0) (Z81.8) Family history of diabetes mellitus (V18.0) (Z83.3) Family history of gallstones (V18.59) (Z83.79) Family history of kidney stones (V18.69) (Z84.1) Family history of pancreatitis (V18.59) (Z83.79) Family history of Ulcer Family history of Hyperactivity Family history of diabetes mellitus (V18.0) (Z83.3) Family history of gallstones (V18.59) (Z83.79) Family history of kidney stones (V18.69) (Z84.1) Family history of pancreatitis (V18.59) (Z83.79) Family history of diabetes mellitus (V18.0) (Z83.3) Family history of fibromyalgia (V17.89) (Z82.69) Family history of kidney stones (V18.69) (Z84.1) Social History Lives with parents Never a smoker Parents History of Pets/Animals: Bird Pets/Animals: Cat Pets/Animals: Dog Denied: History of Tobacco use Allergies Adderall Recorded By: Ruth Smyth; 06/26/2016 5:14:51 PM Focalin Recorded By: Ruth Smyth; 06/26/2016 5:14:51 PM Current Meds Omeprazole 20 MG Oral Capsule Delayed Release; Take 1 capsule twice daily; Therapy: 11May2018 to (Evaluate:61Ssx3115) Requested for: 05Jun2018; Last Rx:01Jun2018 Ordered Rx By: Ruth Smyth; Dispense: 30 Days ; #:60 Capsule Delayed Release; Refill: 3;For: Abdominal pain, epigastric, Bipolar depression, Chronic cough, Fatty liver, Gastroesophageal reflux, Vomiting; ELIZABETH = N; Verified Transmission to [facility][id number] Cetirizine HCl - 10 MG Oral Tablet; TAKE 1 TABLET BY MOUTH EVERYDAY NEEDED FOR ALLERGIES; Therapy: 65Eqe6036 to Recorded Rx By: PETR; Dispense: 30 Days ; #:30; Refill: 0; ELIZABETH = N; Record; Last Updated By: Ruth Smyth; 05/11/2018 9:20:10 PM [facility] Nasal [place] 0.05 % Nasal Solution; USE 2 SPRAYS IN EACH NOSTRIL TWICE A DAY NEEDED; Therapy: 41Xas3336 to Recorded Rx By: CHARLETTE; Dispense: 30 Days ; #:15; Refill: 0; ELIZABETH = N; Record; Last Updated By: Ruth Smyth; 05/11/2018 9:20:10 PM Latuda 40 MG Oral Tablet; Therapy: 67Gfm3412 to Recorded Dispense: 30 Days ; #:30; Refill: 0; ELIZABETH = N; Record; Last Updated By: Ruth Smyth; 05/11/2018 9:20:10 PM Vitals Vital Signs Recorded: 41Lqt3242 12:34PM Heart Rate84 Jfddjlzvjkr10 Kesdaksk482 Kqjnugoqt93 Otltxd127.5 cm 2-20 Stature Pxdckdulwl16 % Sgezhg710.35 kg 2-20 Weight Ettulyjhak24 % BMI Ifqrkpjoxb76.65 BMI Qqjnkipwme43 % BSA Calculated2.3 O2 Xpjblgxxgw29 Physical Exam alert NAD WDON TM's nl sclera slightly injected, PERRL, EOM nl nose clear PWMM, no oral sores or pharyngitis no increased LN No thyromegaly lungs clear CV nl no CVA/SI tenderness abd soft with nl BS, no organomegaly or masses, non tender and non distended ext nl skin nl Results/Data Upper GI Endoscopy Okgflsgut46Xsf2848 12:04PMNon Ambulatory, Provider Test NameResultFlagReference Upper GI Endoscopy Pediatric(Report) Patient Name: Laura Fabian Procedure Date: 05/30/2018 12:04 PM Date of : 2000 Site: [facility] Ethnicity: Not or Race: White Attending MD: Ruth Smyth MD Procedure: Pediatric Upper GI Endoscopy Indications: Epigastric abdominal pain, Suspected esophageal reflux, Vomiting, Weight loss Providers: Ruth Smyth MD (Doctor) Pediatric Gastroenterology Referring MD: Medicines: General Anesthesia Complications: No immediate complications. Estimated blood loss: Minimal. Procedure: Pre-Anesthesia Assessment: - [place] Protocol: - Pre-procedure Verification: Prior to the procedure, the patient's identity was verified by full name, date of and medical record number. The patient's identity was verified on all pertinent medical records, including History and Physical. Also prior to the procedure, a History and Physical was performed, and patient medications, allergies and sensitivities were reviewed. The patient's tolerance of previous anesthesia was reviewed. The risks and benefits of the procedure and the sedation options and risks were discussed with the patient. All questions were answered and informed consent was obtained. - Time-Out: Prior to the start of the procedure, the patient's identification, proposed procedure, accurate signed consent, correctly labeled images and records, and need for prophylactic antibiotics were verified by the physician, the anesthesiologist, the drum operator and the electrical and instrument technician in the procedure room at 12:36 PM. - The patient is unable to give consent secondary to the patient being a minor. The alternatives, risks and benefits of the procedure were discussed at length with the patient's mother. The patient's proxy verbalized understanding of the risks as well as the alternatives and wished to proceed with the procedure. - ASA Grade Assessment: II - A patient with mild systemic disease. After obtaining informed consent, the endoscope was passed under direct vision. Throughout the procedure, the patient's blood pressure, pulse, and oxygen saturations were monitored continuously. The Endoscope was introduced through the mouth, and advanced to the third part of duodenum. The upper GI endoscopy was accomplished without difficulty. The patient tolerated the procedure well. Findings: Mucosal changes including longitudinal furrows were found in the middle third of the esophagus and in the lower third of the esophagus. Esophageal findings were graded using the Eosinophilic Esophagitis Endoscopic Reference Score (EoE-EREFS) as: Edema Grade 1 Present (decreased clarity or absence of vascular markings), Rings Grade 0 None (no ridges or rings seen), Exudates Grade 0 None (no white lesions seen), Furrows Grade 1 Present (vertical lines with or without visible depth) and Stricture none (no stricture found). Biopsies were obtained from the proximal (3) and distal esophagus (4) with cold forceps for histology of suspected eosinophilic esophagitis. [place]-colored mucosa was present. Inlet patches large and opposing. A few 2 mm mucosal nodules were found in the lower third of the esophagus. Biopsies were taken with a cold forceps for histology 3 antral and 3 body. Diffuse nodular mucosa was found in the gastric body. This was biopsied with a cold forceps for Helicobacter pylori testing using PyloriTek test. A few 3 mm mucosal nodules were found in the duodenal bulb. Biopsies were taken with a cold forceps for histology 2. The in the duodenum was normal. 4 Biopsies were taken with a cold forceps for histology. Impression: - Esophageal mucosal changes. Biopsied. - [place]-colored mucosa. - Mucosal nodule found in the esophagus. Biopsied. - Nodular mucosa in the gastric body. Biopsied. - Mucosal nodule found in the duodenum. Biopsied. - Normal. Biopsied. Recommendation: - Await pathology results. - Discharge the patient to home with parent(s). - The findings and recommendations were discussed with the patient's family. Attending Participation: I personally performed the entire procedure. Ruth Smyth MD 05/30/2018 1:11:21 PM This report has been signed electronically. Number of Addenda: 0 Note Initiated On: 05/30/2018 12:04 PM Scope Withdrawal Time Total Procedure Duration Time Scope In: Scope Out: Provimage [email or web address]} Surgical Ksviktnra07Xil1833 12:00AMSRuth guzman Test NameResultFlagReference Case Surgical Pathology(Report) Name LAURA FABIAN Pathologist: VIRGINIA BAHENA MD Date of Procedure: 05/30/2018 Date Received: 05/30/2018 Date Reported 05/31/2018 Submitting Physician: RUTH SMYTH M.D. Location: Other External # FINAL DIAGNOSIS A. ESOPHAGUS, DISTAL, BIOPSY: --SQUAMOUS EPITHELIUM WITH BASAL LAYER HYPERPLASIA, SPONGIOSIS, INCREASED INTRAEPITHELIAL LYMPHOCYTES AND EOSINOPHILS (UP TO 12 PER HIGH POWER FIELD), CONSISTENT WITH REFLUX ESOPHAGITIS. B. ESOPHAGUS, MID, BIOPSY: --SQUAMOUS EPITHELIUM WITH BASAL LAYER HYPERPLASIA, SPONGIOSIS, INCREASED INTRAEPITHELIAL LYMPHOCYTES AND EOSINOPHILS (UP TO 10 PER HIGH POWER FIELD), CONSISTENT WITH REFLUX ESOPHAGITIS. C. STOMACH, BIOPSY: --GASTRIC ANTRUM-TYPE MUCOSA WITH MILD REACTIVE (CHEMICAL) GASTROPATHY. --GASTRIC OXYNTIC MUCOSA WITH NO SIGNIFICANT HISTOPATHOLOGIC CHANGE. --NEGATIVE FOR HELICOBACTER PYLORI-LIKE ORGANISMS BY MORPHOLOGY. D. DUODENUM, BIOPSY: --PATCHY MILD ACUTE AND CHRONIC DUODENITIS WITH FOVEOLAR METAPLASIA. Electronically Signed Out By VIRGINIA BAHENA MD/STS By the signature on this report, the individual or group listed as making the Final Interpretation/Diagnosis certifies that they have reviewed this case. Clinical History: 18 yo male with servere reflux AND hx of H.pylori, fatty liver, wt loss esophagitis with white spots furrows; nodular stomach body AND nodules in bulb, nl distal duo Specimens Submitted As: A: DE-DISTAL ESOPHAGUS B: ME-MID ESOPHAGUS C: G-GASTRIC D: D-DUODENUM Gross Description: A: Received in formalin, labeled with the patient's name and hospital number and [place] , are multiple fragments of white, soft tissue aggregating to 1.1 x 0.2 x 0.1 cm. The specimen is submitted in toto in one cassette. EXL B: Received in formalin, labeled with the patient's name and hospital number and ME , are 2 fragments of white, soft tissue aggregating to 0.9 x 0.2 x 0.1 cm. The specimen is submitted in toto in one cassette. EXL C: Received in formalin, labeled with the patient's name and hospital number and G , are multiple fragments of fuller, soft tissue aggregating to 1.5 x 0.2 x 0.1 cm. The specimen is submitted in toto in one cassette. EXL D: Received in formalin, labeled with the patient's name and hospital number and D , are multiple fragments of fuller, soft tissue aggregating to 1.0 x 0.2 x 0.1 cm. The specimen is submitted in toto in one cassette. EXL exl/05/30/2018 Diagnoses/Problems Epistaxis (784.7) (R04.0) Abdominal pain, epigastric (789.06) (R10.13) Diarrhea (787.91) (R19.7) Gastroesophageal reflux (530.81) (K21.9) Fatty liver (571.8) (K76.0) Vomiting (787.03) (R11.10) Abdominal pain, generalized (789.07) (R10.84) Orders Epistaxis Start: Afrin Sinus 0.05 % Nasal Solution; USE 1 SPRAY IN EACH NOSTRIL TWICE DAILY Rx By: Ruth Smyth; Dispense: 0 Days ; #:1 X 15 ML Bottle; Refill: 0;For: Epistaxis; ELIZABETH = N; Verified Transmission to [facility] #[id number]; Last Updated By: Nancy Geiger; 07/11/2018 1:09:14 PM Patient Discussion/Summary esophagitis and he had eosinophils he has whey antibodies improvement on omeprazole. Plan continue the omeprazole twice a day. He has appt with dietitian. RTC 3 months. For issues or concerns call the Office [phone]. On the week end [phone] and ask for peds GI interpersonal communications professor . Signatures Electronically signed by : Ruth Smyth MD; Jul 11 2018 2:33PM EST (Author) Normal [facility] WHEY, IGGon 06-02-2018 WHEY, IGG 75.1 mcg/mL High <2.0 [facility] Comment on above: Result Comment: The reference range listed on the report is the lowerlimitof quantitation for the assay. The clinical utility offood-specific IgG tests has not been established. Thesetests can be used in special clinical situations to selectfoods for evaluation by diet elimination and challenge inpatients who have food-related complaints. It should berecognized that the presence of food-specific IgG alonecannot be taken as evidence of food allergy and onlyindicates immunologic sensitization by the food allergeninquestion. This test should only be ordered by physicianswho recognize the limitations of the test.*This test was developed and its performancecharacteristics determined by [employer]. It has notbeen cleared or approved by the U.S. Food and DrugAdministration. Performed At:[facility] [address] [facility] [place] [address]GdtucqhpSushma Conroy PhD HCLD(ABB)CLIA# [id number] Performed By: #### A LE83 ####[id number] [place] [address] IMMUNOCAP INTERP.IGEon 05-31 IMMUNOCAP INTERP.IGE SEE COMMENT Normal [facility] Comment on above: Result Comment: REFE RENCE RANGE (IMMUNOCAP) IGE KU/L CLASS INTERPRETATION < 0.35 0 BELOW DETECTION 0.35- 0.69 1 LOW POSITIVE 0.70- 3.49 2 MODERATE POSITIVE 3.50- 17.49 3 HIGH ZUOMXIPX48.50- 49 4 VERY HIGH FVQICMVM86 - 99 5 VERY HIGH POSITIVE >100 6 VERY HIGH POSITIVE Performed By: #### I CRRE ####[id number] [place] [address] INSULINon 05-31-2018 INSULIN 44 uIU/ml High 3 - 19 [facility] Comment on above: Performed By: #### I NSUL ####[id number] [place] [address] WHEY,IGE,ICon 05-31-2018 WHEY,IGE,IC <0.35 Normal <0.35 [facility] Comment on above: Result Comment: SEE IMMUNOCAP INTERP.IGE Performed By: #### I CW07 ####[id number] [place] [address] History and Physical - Surge ry > 30 dayson 05-30-2018 History and Physical - Surgery > 30 days History of Present Illness:History Present Illness:Reason for surgery: 18y M here for vomiting and hx of H pylori.HPI:18y M here for vomiting and hx of H pylori. fatty liver increased CRP and ALTand wt loss 10 lbs. s/p appe and T & A Allergies to focalin, adderall andpossibly abilify. Omeprazole and zofran Allergies: Allergies: Focalin: Unknown Home Medication Review:Home Medications Reviewed: yes Impression/Procedure:Impressio n and Planned Procedure: EGD Review of Systems:Review of Systems:Constitutional: NEGATIVE: Fever Eyes: NEGATIVE: Redness ENMT: NEGATIVE: Nasal Discharge Respiratory: NEGATIVE: Dry Cough Cardiac: NEGATIVE: Chest Pain Gastrointestinal: POSITIVE: Vomiting Musculoskeletal: NEGATIVE: Decreased ROM Neurological: NEGATIVE: Headache Hematologic/Lymph: NEGATIVE: Anemia Vital Signs:Temperature C: 36.2 degrees CTemperature F: 97.1 degrees FHeart Rate: 76 beats per minuteRespiratory Rate: 18 breath per minute Physical Exam: Constitutional: Alert NAD WDONEyes: Sclera clearENMT: No oral sores or pharyngitisHead/Neck: No thyromegaly or lymphadenopathyRespiratory/Tho rax: Clear no distressCardiovascular: nlGastrointestinal: soft no organomegaly or masses non tenderMusculoskeletal: grossly normalNeurological: AO x3Skin: nl Signatures/Attestation/Certifi cation:Provider/Team Contact Info-Pager [id number] Provider Inpatient Certification StatementN/A - observationpatient/other outpatient visits Electronic Signatures:Ruth Smyth) (Signed 30-May-2018 12:11)Authored: History of Present Illness, Allergies, Home Medication Review,Impression/Procedure, Review of Systems, Physical Exam,Signatures/Attestation/Ce rtification Last Updated: 30-May-2018 12:11 by Ruth Smyth) Normal [facility] Patient Profile - Preop - Pe diatric v2on 05-30-2018 Protein mass conc Profile:Initial Info :How to be AddressedAnthonySpoken Language PreferredEnglishParental Spoken Language PreferredEnglishLegal CustodianParentsAre you currently using the Personal Electronic Health Record or GroxisCAREnoAre you interested in learning more about [facility] for the management of yourhealthdeclinedStated Reason for AdmissionEGDPrimary Contact Name and NumberJanice [phone] Belongingsgiven to parent/guardianMedications Brought to HospitalnoPatient Belongings Given to Parent/Guardianclothing; cell phone/electronics General Health:Patient or Family Member Reaction to Anesthesiapatient reactionPatient Reaction to Anesthesianausea and vomitingBlood Avoidance/RestrictionsnonePrev ious Transfusion Reactionno Health Mgmt:Symptoms/Conditions Managed at HomegastrointestinalGastrointe stinal Symptoms/Conditionsabdominal pain; nausea/vomitingBarriers to Managing Healthnone Relationship/Environ:Primary Caregivermother; father; auntLives Withmother; father; grandmother; auntResource/Environmental ConcernsnoneAnticipated Transition TohomeServices Anticipated at Transitionnone Substance:Current or Former Substance Use never: Cigarette/Tobacco, e-Cigarette/Vaping,Alcohol, Street Drugs Risk Screens:Advance Directive Medicalnot applicableAdvance Directive Mental Healthnot applicablePatient is Able to be Assessed for LearningyesFactors Influence Readiness to Learnnone, ready to learnFactors Impact Ability to LearnnoneDevices/Methods Used to CommunicatenoneLearning Preferencesindividual instruction, verbal instruction, writtenmaterialCultural ConsiderationsnoneDevelopmenta l ConsiderationsnoneReligious ConsiderationsnoneOther learner availableyesOther Learner is Able to be Assessed for LearningyesOther LearnersmotherEducational Leveln/aFactors Influencing Readiness to Learnnone, ready to learnFactors that Impact Ability to LearnnoneDevices/Methods Used to CommunicatenoneLearning Preferencesindividual instruction, verbal instruction, writtenmaterialCultural ConsiderationsnoneDevelopmenta l ConsiderationsnoneReligious ConsiderationsnoneDuring the past month, have you often been bothered by feeling down, depressedor hopelessnoDuring the past month, have you often had little interest or pleasure in doingthingsnoHave you had any thoughts of harming yourselfnoHave you had any thoughts of harming anyone elsenoFalls RiskPatient location auto qualifies him/her for HIGH RISK.Are there any cultural, spiritual, alevism practices/values/needs that areimportant for us to knownoPain Scalenumerical 0-10Pain Scale Educationteaching providedCurrent Pain Level0 = NoneAcceptable Pain Level0 = NoneChronic Painno Additional Information:Information Review: Allergies, Home Meds and Significant Events have been Reviewed and Verifiedwith Patient/Familyyes Allergy, Intolerance, Adverse Event: Allergies: Focalin: Drug, Unknown, Active Electronic Signatures:Mara Galvan (ZOHREH) (Signed 30-May-2018 11:27)Authored: Profile, Additional Information Last Updated: 30-May-2018 11:27 by Mara Galvan (ZOHREH) Normal [facility] Preop Checkliston 05-30-2018 Preop Checklist Preop Checklist:Preo p Checklist: Arrival [id number] Arrival Time10:52 Procedure TypeEGD NPO [id number] 23:00 ID Band Onyes Allergy Bandyes Consent Signedpending H&P Completepending Anesthesia Assessment Completedpending EKG Performednot ordered Chest X-Ray Performednot ordered Chlorhexadine Bath Givennot applicable Soap and water bath with hair shampoo the night before surgerynot applicable SCD's Appliednot applicable Denturesnot applicable Prostheticsnot applicable Hearing Aidsnot applicable Valuables Securednot applicable Glasses / Contactsnot applicable Bowel Prepno Cardiovascular Assessment: Apicalregular Radial Pulsespalpable Pedal Pulsespalpable Extremitieswarm, well perfused Respiratory Assessment: Respirationsunlabored regular Air Exchangeequal, good Breath Soundsclear Neurological Assessment: Level of Consciousnessalert, oriented Mobilitymoves all extremities Able to Express Selfyes Age Appropriateyes Emotional Statusanxious Preop Education: Pain Scales and Managementyes Language / Communication: Language / CommunicationEnglish Electronic Signatures:Mara Galvan (RN) (Signed 30-May-2018 11:14)Authored: Preop Checklist Last Updated: 30-May-2018 11:14 by Mara Galvan (RN) Normal [facility] Surgical Pathology Depar tmenton 05-30-2018 [facility] Surgical Pathology Department Name LAURA FABIAN Pathologist: VIRGINIA BAHENA, MDDate of Procedure: 05/30/2018Date Received: 05/30/2018Date Reported 05/31/2018Submitting Physician: RUTH SMYTH M.D.Location: Other External # FINAL DIAGNOSISA. ESOPHAGUS, DISTAL, BIOPSY:--SQUAMOUS EPITHELIUM WITH BASAL LAYER HYPERPLASIA, SPONGIOSIS, INCREASEDINTRAEPITHELIAL LYMPHOCYTES AND EOSINOPHILS (UP TO 12 PER HIGH POWER FIELD),CONSISTENT WITH REFLUX ESOPHAGITIS. B. ESOPHAGUS, MID, BIOPSY: --SQUAMOUS EPITHELIUM WITH BASAL LAYER HYPERPLASIA, SPONGIOSIS, INCREASEDINTRAEPITHELIAL LYMPHOCYTES AND EOSINOPHILS (UP TO 10 PER HIGH POWER FIELD),CONSISTENT WITH REFLUX ESOPHAGITIS.C. STOMACH, BIOPSY:--GASTRIC ANTRUM-TYPE MUCOSA WITH MILD REACTIVE (CHEMICAL) GASTROPATHY.--GASTRIC OXYNTIC MUCOSA WITH NO SIGNIFICANT HISTOPATHOLOGIC CHANGE.--NEGATIVE FOR HELICOBACTER PYLORI-LIKE ORGANISMS BY MORPHOLOGY. D. DUODENUM, BIOPSY: --PATCHY MILD ACUTE AND CHRONIC DUODENITIS WITH FOVEOLAR METAPLASIA. Electronically Signed Out By VIRGINIA BAHENA MD/STSBy the signature on this report, the individual or group listed as making theFinal Interpretation/Diagnosis certifies that they have reviewed this case. Clinical History:18 yo male with servere reflux AND hx of H.pylori, fatty liver, wt loss esophagitis with white spots furrows; nodular stomach body AND nodules in bulb,nl distal duoSpecimens Submitted As:A: DE-DISTAL ESOPHAGUS B: ME-MID ESOPHAGUS C: G-GASTRIC D: D-DUODENUM Gross Description:A: Received in formalin, labeled with the patient's name and hospital numberand DE , are multiple fragments of white, soft tissue aggregating to 1.1 x0.2 x 0.1 cm. The specimen is submitted in toto in one cassette.EXLB: Received in formalin, labeled with the patient's name and hospital numberand ME , are 2 fragments of white, soft tissue aggregating to 0.9 x 0.2 x 0.1cm. The specimen is submitted in toto in one cassette.EXLC: Received in formalin, labeled with the patient's name and hospital numberand G , are multiple fragments of fuller, soft tissue aggregating to 1.5 x 0.2 x0.1 cm. The specimen is submitted in toto in one cassette.EXLD: Received in formalin, labeled with the patient's name and hospital numberand D , are multiple fragments of fuller, soft tissue aggregating to 1.0 x 0.2 x0.1 cm. The specimen is submitted in toto in one cassette.EXLexl/05/30/2018 Normal [facility] Comment on above: Performed By: #### [facility] ####[facility] Surgical Pathology [id number] [place] [address] Peds Gastroenterology - Jessee lopez 05-11-2018 Peds Gastroenterology - Established Chief Complaint Accompanied by mother and aunt. NPV vomiting, stomach pain 3 months. History of Present Illness 18 y M here for follow up last visit 06/24. History of reflux and H pylori. In February, All of a sudden he started vomiting after he started a new medication Abilify and they stopped it and gave him Zofran helped a little. He is vomiting with the Zofran. He had an ultrasound that showed normal GB and no stones and a fatty liver. He was negative for mono and he had CBC with left shift, but no anemia, and slight increase in CRP and increased ALT and normal lipase and nl Urine. He has had a low grade fever. He got sick with a stuffy nose and headache 1-2 weeks ago and then he started vomiting again. Wednesday he felt great and Wednesday night had diarrhea and vomiting at the same time. Sat he went to play football and he vomited. Last emesis was Wednesday night. Last diarrhea was Wednesday. He has pain but no nausea. He can eat. He had a sausage burritos this am. He was vomiting green, but no blood or coffee ground material. Between February and this most recent episode he was vomiting 1-2 times per week it was water and not food and it came up easily. No increased burp or hiccup. No regurgitation. He has heartburn and he wakes at night rarely. No sore throat or canker sores. No issues with swallowing the food down. No bloating or increased gas. Eating does not cause stomach pain. He doesn't eat and then vomit. It is not with activity. No pattern. No car sickness. BM's are 1-2 per day. Usually the stool is not hard or loose. No blood and no black or pale stools. No bottom pain or sores. He will be on Latuda but hasn't started it yet. Ondansetron and Zyrtec but not taking now. No concussion this year, but he has had one in the past. He vomits multiple times and it is a lot but it is clear. He is not on acid suppression. He eats some fruits. He eats a lot of red meat. He drinks pop. Review of Systems Constitutional: fever and excessive weight gain, but no fatigue, no change in appetite and no weight loss . He lost 10 lbs while he was sick. Eyes: no vision problems, no eye pain, no sclera icterus, no discharge and no diplopia . new glasses dry eyes. ENT: sinus and nasal congestion, but no ear pain, no epistaxis and no mouth ulcers. Cardiovascular: no chest pain . NO CV disease. Respiratory: cough, but no wheezing and no shortness of breath . no asthma. Gastrointestinal: as noted in HPI. Genitourinary: no increased urinary frequency and no dysuria. Musculoskeletal: no arthralgia, no joint swelling and no back pain. Integumentary: no rashes and no skin lesion(s). Neurological: headaches, but no seizures, no dizziness and no fainting . He takes ibuprofen every 2 weeks. Endocrine: no short stature. Hematologic/Lymphatic: no excessive bruising. Psychiatric: anxiety, but no depression . Bipolar. Active Problems Abdominal pain, generalized (789.07) (R10.84) Chronic cough (786.2) (R05) Diarrhea (787.91) (R19.7) Gastroesophageal reflux (530.81) (K21.9) Vomiting (787.03) (R11.10) Past Medical History History of attention deficit hyperactivity disorder (V11.8) (Z86.59) History of concussion (V15.52) (Z87.820) Personal history of Helicobacter infection (V12.09) (Z86.19) Surgical History History of Appendectomy History of Tonsillectomy With Adenoidectomy Family History Family history of Drug allergy sulfa, naprosyn, prednison, motrin Family history of depression (V17.0) (Z81.8) Family history of multiple sclerosis (V17.2) (Z82.0) Family history of Learning disorder Family history of kidney stones (V18.69) (Z84.1) Family history of migraine headaches (V17.2) (Z82.0) Family history of depression (V17.0) (Z81.8) Family history of diabetes mellitus (V18.0) (Z83.3) Family history of gallstones (V18.59) (Z83.79) Family history of kidney stones (V18.69) (Z84.1) Family history of pancreatitis (V18.59) (Z83.79) Family history of Ulcer Family history of Hyperactivity Family history of diabetes mellitus (V18.0) (Z83.3) Family history of gallstones (V18.59) (Z83.79) Family history of kidney stones (V18.69) (Z84.1) Family history of pancreatitis (V18.59) (Z83.79) Family history of diabetes mellitus (V18.0) (Z83.3) Family history of fibromyalgia (V17.89) (Z82.69) Family history of kidney stones (V18.69) (Z84.1) Social History Lives with parents Never a smoker Parents History of Pets/Animals: Bird Pets/Animals: Cat Pets/Animals: Dog Denied: History of Tobacco use Allergies Adderall Recorded By: Ruth Smyth; 06/26/2016 5:14:51 PM Focalin Recorded By: Ruth Smyth; 06/26/2016 5:14:51 PM Vitals Vital Signs Recorded: 11May2018 08:14AM Mybnxcseyvr54.6 F Heart Rate66 Pjilylcj596 Nsuciitgj22 Aitbwq141.4 cm Xekimp864 lb BMI Fuhgdohalr51.22 BSA Calculated2.27 BMI Kjebkzamhk49 % 2-20 Stature Lyfrduvnkq05 % 2-20 Weight Gtizclkkxf67 % Physical Exam alert NAD WDON TM's nl sclera clear, PERRL, EOM nl nose clear PWMM, no oral sores or pharyngitis no increased LN No thyromegaly lungs clear CV nl no CVA/SI tenderness abd soft with nl BS, no organomegaly or masses, tender epigastric and non distended ext nl skin nl Diagnoses/Problems Fatty liver (571.8) (K76.0) Vomiting (787.03) (R11.10) Gastroesophageal reflux (530.81) (K21.9) Abdominal pain, epigastric (789.06) (R10.13) Chronic cough (786.2) (R05) Bipolar depression (296.50) (F31.30) *Orders Abdominal pain, epigastric, Bipolar depression, Chronic cough, Fatty liver, Gastroesophageal reflux, Vomiting Start: Omeprazole 20 MG Oral Capsule Delayed Release; TAKE 1 CAPSULE Daily Rx By: Ruth Smyth; Dispense: 0 Days ; #:30 Capsule Delayed Release; Refill: 3;For: Abdominal pain, epigastric, Bipolar depression, Chronic cough, Fatty liver, Gastroesophageal reflux, Vomiting; ELIZABETH = N; Verified Transmission to [id number]; Last Updated By: Nancy Geiger; 05/11/2018 9:09:19 AM Endoscopy - Upper GI; Status:Active; Requested for:11May2018; Perform:[facility]; Due:09Aug2018; Last Updated By:Beth Murray; 05/11/2018 12:14:39 PM;Ordered; For:Abdominal pain, epigastric, Bipolar depression, Chronic cough, Fatty liver, Gastroesophageal reflux, Vomiting; Ordered By:Ruth Smyth; Patient Discussion/Summary epigastric pain chronic vomiting fatty liver Plan EGD lab will call about scheduling the scope. Omeprazole 20 mg daily Zofran for the nausea No sugary drinks no diet drinks no red meat lot of fruits and veg and fish. RTC after the scope. 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 End of Encounter Meds Omeprazole 20 MG Oral Capsule Delayed Release; TAKE 1 CAPSULE Daily; Therapy: 11May2018 to (Last Rx:11May2018) Requested for: 11May2018 [facility] Vital Signs Date Time Vital Sign Value Performing Clinician Facility 10-19-2022 11:52-0400 Body height 177.8 cm Kyree Arteaga [employer] Work Phone: [facility] 10-19-2022 11:52-0400 Body mass index (BMI) [Ratio] 45.63 kg/m2 Kyreemitch Arteaga [facility] Work Phone: [facility] 10-19-2022 11:52-0400 Body temperature 98.29 [degF] Kyree Conn [facility] Work Phone: [facility] 10-19-2022 11:52-0400 Body weight 144.24 kg Kyree Arteaga [facility] Work Phone: [facility] 10-19-2022 11:52-0400 Diastolic blood pressure 85 mm[Hg] Kyree Lisa [facility] Work Phone: [facility] 10-19-2022 11:52-0400 Heart rate 92 /min Kyree Arteaga [facility] Work Phone: [facility] 10-19-2022 11:52-0400 Respiratory rate 16 /min Kyree Conn [facility] Work Phone: [facility] 10-19-2022 11:52-0400 SaO2% (BldA) [Mass fraction] 95 % Kryee Conn [facility] Work Phone: [facility] 10-19-2022 11:52-0400 Systolic blood pressure 133 mm[Hg] Kyree Arteaga [employer] Work Phone: [facility] 12-03-2021 11:15-0400 Body height 175.26 cm Emma Claros Other [facility] Other 12-03-2021 11:15-0400 Body mass index (BMI) [Ratio] 43.56 kg/m2 Emma Claros Other [facility] Other 12-03-2021 11:15-0400 Body temperature 98.2 [degF] Emma Claros Other [facility] Other 12-03-2021 11:15-0400 Body weight 133.81 kg Emma Claros Other [facility] Other 12-03-2021 11:15-0400 Respiratory rate 18 /min Emma Claros Other [facility] Other 12-03-2021 11:15-0400 SaO2% (BldA) [Mass fraction] 97 % Emma Claros Other [facility] Other Encounters Encounter Date Encounter Type Care Provider Facility Start: 09-13-2023 End: 09-13-2023 ambulatory Parisa Kathleen Other [facility] Other Start: 09-13-2023 Telephone encounter Parisa [facility] Start: 10-19-2022 End: 10-19-2022 ambulatory PARISA KATHLEEN [facility] Start: 10-19-2022 End: 10-19-2022 Office outpatient new 20 minutes Kyree Arteaga [employer] Work Phone: [facility] [place] Comment on above: Bilateral otitis med ia, unspecified otitis media type (Primary Dx); Sore throat; Acute cough Start: 05-05-2022 Routine infant or ch ild health check Parisa Kathleen Other [facility] Other Start: 12-03-2021 End: 12-03-2021 ambulatory Emma Claros Other [facility] Other Start: 12-03-2021 Office outpatient vi sit 15 minutes Emma Claros [facility] Start: 07-31-2020 End: 07-31-2020 Patient encounter procedure PARISA KATHLEEN Facility:[id number] Start: 06-04-2020 End: 06-05-2020 Patient encounter procedure PARISA KATHLEEN Facility:[id number] Start: 07-11-2018 Patient encounter procedure RUTH Gerard SMYTH Facility:[id number] Start: 05-30-2018 End: 05-30-2018 Patient encounter procedure RUTH B HUGO Facility:[id number] Start: 05-11-2018 Patient encounter procedure RUTH B HUGO Facility:[id number] Procedures Date Procedure Procedure Detail Performing Clinician Start: 05-30-2018 Anesthesia upper gi endoscopic px nos RUTH SMYTH Start: 05-30-2018 Egd transoral biopsy single/multiple RUTH SMYTH Start: 12-12-2013 General examination of patient Parisa Kathleen Other End: 04-09-2012 Appendectomy Ruth Smyth MD Tonsillectomy and adenoidectomy Ruth Smyth MD Viral screening Parisa Kathleen Other Plan of Treatment Date Care Activity Detail Author Start: 04-09-2022 Influenza vaccination Sequenti al Influenza Vaccine (#1) [facility] Start: 2020 Hepatitis C screening Hepatitis C Sc reening [facility] Start: 2017 HIV screening HIV Screening [facility] Start: 2014 Depression screening using PHQ-9 (Patient Health Questionnaire 9) score Depression Screening (PHQ-2/9) [facility] Start: 2013 Vaccination for alaina n papillomavirus HPV Vaccines (1 - Male 2-dose series) [facility] Start: 2005 History and physical examination, annual for health maintenance Wellness Visit [facility] Start: 2002 COVID-19 Vaccine (#1) COVID-19 Vacci ne (#1) [facility] Start: 2002 Tetanus vaccination Tetanus: Every 1 0yrs [facility] Immunizations Immunization Date Immunization Notes Care Provider Ganesh maxwell 10-25-2014 diphtheria, tetanus toxoids and acellular pertussis vaccine, unspecified formulation Parisa Kathleen Other [facility] Other Payers Date Payer Category Payer Medicaid [employer] ANTH MEDICAID [facility] [id number] 2022-Present [phone] [address] [address] [place] [address] [id number] 2022 Medicaid [id number] 2002 Unknown [id number] 2002 Unknown [id number] 1977 Unknown [id number] 1976 Unknown [id number] 1976 Unknown [id number] 1959 Medicaid [id number] Unknown [id number] Unknown [id number] Social History Date Type Detail Facility Sex Assigned At Sex Assigned At [facility] Other Start: 10-19-2022 Tobacco smoking status NHIS Never smoked tobacco [facility] Start: 10-19-2022 Tobacco use and exposure Smokeless tobacco non-user [facility] Start: 10-19-2022 Alcohol intake Ex-drinker (finding) [facility] Start: 2002 Sex Assigned At Not on file [facility] Start: 10-09-2022 End: 10-19-2022 Exposure to SARS-CoV-2 (event) Not sure [facility] NEGATED: Highlighted row - - JZ-Ucdbbggdvm-Czsesr ke 1600 Work Phone: Functional Status Date Assessment Result Facility NEGATED: Highlighted row Functional performance Functional status health issues are not documented Disease TE-Tzrpzaebvk-Rekvf jessica [address] Work Phone: Mental Status Date Assessment Result Facility NEGATED: Highlighted row Cognitive function [Interpretation] Cognitive status health issues are not documented Disease AG-Rzqpmjpvbx-Xtnwr jessica [address] Work Phone: Evaluation note 09-13-2023 Note Date & Type Note Facility 09-13-2023 Evaluation note Encounter Date Diagnosis Assessment Notes Sep, Right foot pain (ICD-10 - M79.671) [facility] Other Instructions 10-19-2022 Patient InstructionsAttachments Note Date & Type Note Facility 10-19-2022 Instructions Kyree Arteaga CNP - 10/19/2022 12:12 PM EDT Thank you for choosing [facility] for your healthcare needs today. Discontinue VEETID. I sent in PCN higher dosing recommended for ear infection and cough medication. Follow up no improvement in 7 to 10 days or for worsening of symptoms as needed. The following attachments cannot be sent through Care Everywhere.Otitis Media (Peruvian)Cough (Peruvian)documented in this encounter [facility] History of Present illness Narrative 10-19-2022 Kyree Arteaga CNP - 10/19/2022 11:47 AM EDT Note Date & Type Note Facility 10-19-2022 History of Presen t illness Narrative Images from the original note were not included. Patient Name: [facility] Location: [facility] [address] [place] [id number] Date Of : Date Of Visit: 2000 10/19/2022 MRN# Provider: [id number] Kyree Arteaga CNP Chief Complaint Patient presents with Illness St, cough, body aches, HUNTER x 3 days, pressure in left ear x 3 days, pt took at home covid test yesterday and was negative Assessment & Plan 1. Bilateral otitis media, unspecified otitis media type amoxicillin (AMOXIL) 500 MG capsule 2. Sore throat 3. Acute cough benzonatate (Tessalon Perles) 100 MG capsule No follow-ups on file. Medical Decision Making Client is pleasant, non-toxic with URI symptoms x [address], cough and congestion. Ear pressure/congestion. Negative COVID-19 home test. Worsening of symptoms. Consider: OM, Strep, Viral Infection. See H&P Client with erythema of bilateral ears. OM - Amoxicillin high dosing Cough - Tessalon Work note Additional Clinical Comments Discontinue VEETID. I sent in PCN higher dosing recommended for ear infection and cough medication. Follow up no improvement in 7 to 10 days or for worsening of symptoms as needed. Subjective 22 y.o. male presents with Illness (St, cough, body aches, HUNTER x 3 days, pressure in left ear x 3 days, pt took at home covid test yesterday and was negative ) Client with ST, HUNTER, body aches and cough for several days. Congestion of the left ear. Currently on day 5 of 7 day medication for tooth infection. Negative COVID-19 last night. URI This is a new problem. The current episode started in the past 7 days. Associated symptoms include congestion, coughing, headaches, a sore throat and vomiting. Pertinent negatives include no diarrhea, ear pain, nausea, rhinorrhea or wheezing. Review Of Systems Review of Systems Constitutional: Negative for chills and fever. HENT: Positive for congestion and sore throat. Negative for ear pain and rhinorrhea. Respiratory: Positive for cough. Negative for shortness of breath and wheezing. Gastrointestinal: Positive for vomiting. Negative for diarrhea and nausea. Musculoskeletal: Positive for myalgias. Neurological: Positive for headaches. Medical History History reviewed. No pertinent past medical history. Past Surgical History: Procedure Laterality Date APPENDECTOMY TONSILLECTOMY There is no problem list on file for this patient. Social History Social History Tobacco Use Smoking status: Never Smokeless tobacco: Never Vaping Use Vaping Use: Never used Substance Use Topics Alcohol use: Not Currently Family History No family history on file. Objective Physical Exam BP 133/85 (BP Location: Left arm, Patient Position: Sitting) Pulse 92 Temp 98.3 F (36.8 C) (Oral) Resp 16 Ht 5' 10 Wt (!) 144.2 kg (318 lb) SpO2 95% BMI 45.63 kg/m Vision/Hearing Exam:No results found. Physical Exam Vitals and nursing note reviewed. Constitutional: General: He is not in acute distress. Appearance: Normal appearance. He is not ill-appearing, toxic-appearing or diaphoretic. HENT: Head: Normocephalic and atraumatic. Right Ear: Ear canal and external ear normal. Tympanic membrane is erythematous. Left Ear: Ear canal and external ear normal. Tympanic membrane is erythematous. Nose: Mucosal edema and congestion present. Mouth/Throat: Lips: [place]. Mouth: Mucous membranes are moist. Pharynx: Oropharynx is clear. Posterior oropharyngeal erythema present. No pharyngeal swelling or oropharyngeal exudate. Cardiovascular: Rate and Rhythm: Normal rate and regular rhythm. Heart sounds: Normal heart sounds. Pulmonary: Effort: Pulmonary effort is normal. No respiratory distress. Breath sounds: Normal breath sounds. No wheezing or rales. Skin: General: Skin is warm and dry. Neurological: Mental Status: He is alert. Psychiatric: Mood and Affect: Mood normal. Behavior: Behavior normal. Procedure Notes Procedures Results No results found for this or any previous visit (from the past 168 hour(s)). No orders to display Orders Placed This Visit No orders of the defined types were placed in this encounter. Medication List At End Of Visit Current Outpatient Medications Medication Sig Dispense Refill amoxicillin (AMOXIL) 500 MG capsule Take 2 (two) capsules (1,000 mg total) by mouth 3 (three) times a day for 7 days . 42 capsule 0 benzonatate (Tessalon Perles) 100 MG capsule Take one or two capsules every 8 hours as needed for cough. Do not chew. . 60 capsule 1 No current facility-administered medications for this visit. Patient Instructions Thank you for choosing [facility] for your healthcare needs today. Discontinue VEETID. I sent in PCN higher dosing recommended for ear infection and cough medication. Follow up no improvement in 7 to 10 days or for worsening of symptoms as needed. documented in this encounter [facility] Evaluation note 12-03-2021 Note Date & Type Note Facility 12-03-2021 Evaluation note Encounter Date Diagnosis Assessment Notes Nov, Contact with and (suspected) exposure to other viral communicable diseases (ICD-10 - Z20.828) Nov, Acute sinusitis, recurrence not specified, unspecified location (ICD-10 - J01.90) Drink plenty fluids, get plenty of rest. Continue your nasal spray, 2 sprays to each nostril daily until your symptoms improve. Take the prednisone as prescribed until gone. Consider taking Mucinex or Sudafed for your nasal congestion. Follow-up with your family physician if no improvement in 2 to 3 days. You may return to work tomorrow Nov, Other Additional time spent conducting pre-visit phone call, screening for symptoms, instructions on social distancing, application and removal of PPE, and cleaning of examination room, equipment and supplies was preformed. Patient education given for testing methodology and results. Patient care instructions given in writting by [facility] At Home document. [facility] Other Clinical Note 12-05-2020 Note Date & Type Note Facility 12-05-[address] Canela at [facility] e speaking with pt and family re discharge dx and plan of care [facility] Evaluation note Note Date & Type Note Facility Evaluation note Diagnosis Bilateral otitis media, unspecified otitis media type- Primary Sore throat Acute pharyngitis Acute cough documented in this encounter [facility] History general Narrative - Reported Note Date & Type Note Facility History general Narrative - Reported Type Medical History ADHD Surgical History tonsillectomy and adenoidectomy Surgical History appendectomy Hospitalization History See Above [facility] Other Instructions Note Date & Type Note Facility Instructions Name Instructions not documented [facility] [address] Work Phone: Summary Purpose Family History Grandmother Name Dates Details Family history of Ulcer(707. 9) Status:Active Family history of pancreatit is(V18.59, Z83.79) Status:Active Family history of gallstones (V18.59, Z83.79) Status:Active Family history of kidney sto josue(V18.69, Z84.1) Status:Active Family history of diabetes m ellitus(V18.0, Z83.3) Status:Active Family history of depression (V17.0, Z81.8) Status:Active aunt Name Dates Details Family history of pancreatit is(V18.59, Z83.79) Status:Active Family history of gallstones (V18.59, Z83.79) Status:Active Family history of kidney sto josue(V18.69, Z84.1) Status:Active Family history of diabetes m ellitus(V18.0, Z83.3) Status:Active uncle Name Dates Details Family history of kidney sto josue(V18.69, Z84.1) Status:Active Family history of diabetes m ellitus(V18.0, Z83.3) Status:Active Family history of fibromyalg ia(V17.89, Z82.69) Status:Active Mother Name Dates Details Family history of multiple s clerosis(V17.2, Z82.0) Status:Active Family history of Learning d isorder(315.9, F81.9) Status:Active Family history of Drug aller gy(V14.9, Z88.9) Status:Active Family history of depression (V17.0, Z81.8) Status:Active Father Name Dates Details Family history of kidney sto josue(V18.69, Z84.1) Status:Active Family history of migraine h eadaches(V17.2, Z82.0) Status:Active Grandfather Name Dates Details Family history of Hyperactiv ity(314.9, F90.9) Status:Active Advance Directives No Advanced Directives Records FoundNo Advanced Directives Records FoundNo Advanced Directives Records FoundNo Advanced Directives Records FoundNo Advanced Directives Records FoundNo Advanced Directives Records Found Reason for Referral Reason *FU 09/22 R foot p ain Diagnosis 1 Right foot pain (M79 .671) Referral Organization [facility] Adrian alan Referring Provider First Name Parisa Referring Provider Last Name Hever Referring Provider Specialty [facility] Referred Organization [facility] Referred Provider Samuel Morris Referred Address [address] [place], [place],[address] Referred Provider Specialty Podiatry - S urgical Chiropody Referral Priority Routine General Notes Amanda Harrell 01:11:30 PM >received today, notes locked, attachments made, referral faxed Additional Source Comments (unrecognized sect ion and content) No Status Records FoundNo Status Records FoundNo Status Records FoundNo Status Records FoundNo Status Records FoundNo Status Records Found INFORMATION SOURCE (unrecogn ized section and content) DATE CREATED AUTHOR 07/24/2018 [facility] DATE CREATED AUTHOR AUTHOR'S ORGANIZ ATION 10/11/2018 [employer] DATE CREATED AUTHOR AUTHOR'S ORGANIZ ATION 08/10/2020 [facility] DATE CREATED AUTHOR AUTHOR'S ORGANIZ ATION 03/24/2021 [facility] DATE CREATED AUTHOR AUTHOR'S ORGANIZ ATION 07/30/2021 [facility] DATE CREATED AUTHOR AUTHOR'S ORGANIZ ATION 10/20/2022 [facility] REASON FOR VISIT (unrecogniz ed section and content) foot xray Reason Comments Illness St, cough, body ache s, HUNTER x 3 days, pressure in left ear x 3 days, pt took at home covid test yesterday and was negative Care Teams (unrecognized sec tion and content) 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 This clinical summary was aggregated from multiple sources. Caution should be exercised in using it in the provision of clinical care. This summary normalizes information from multiple sources, and as a consequence, information in this document may materially change the coding, format and clinical context of patient data. In addition, data may be omitted in some cases. CLINICAL DECISIONS SHOULD BE BASED ON THE PRIMARY CLINICAL RECORDS. [facility] [employer] provides no warranty or guarantee of the accuracy or completeness of information in this document.
== END 2023-09-21 14:12 | disposition home or self-care (01) ==
LOC: RAD 14:11
PROVIDERS: PCP Family Medicine; Visit Provider Podiatrist Foot & Ankle Surgery
DX: M79.671 Pain in right foot (principal)
CPT/HCPCS: 73630

== ENCOUNTER 2023-10-04 13:54 | Outpatient (OUT) | payer MEDICAID, SELFPAY | END 2023-10-04 13:55 | disposition home or self-care (01) | PROVIDERS: PCP Family Medicine; Visit Provider Family Medicine | DX: G47.33 Obstructive sleep apnea (adult) (pediatric) (principal) ==

== ENCOUNTER 2023-10-05 10:20 | Outpatient (OUT) | payer MEDICAID, SELFPAY ==
--- NOTE | 2023-10-05 10:25 | MR_ITS ---
The [address] [address] Patient Name: LAURA FABIAN MRN: [id number] date: 2000 Sex: M Assigned Patient Location: MRI Current Patient Location: MRI Accession/Order Number: [id number] Exam Date: 10/05/2023 10:39 Report Date: 10/05/2023 14:32 At the request of: DANNY CREWS Procedure: MR ankle RT wo con EXAM: MR ankle RT wo con REASON FOR EXAM: Strain Of Ankle, Peroneal Tender, Crush Injury. TECHNIQUE: Multiplanar, multisequence imaging of the right ankle was performed without contrast COMPARISON: Radiographs 09/21/2023. FINDINGS: There is mild fusiform thickening and intermediate signal involving the Achilles tendon with distal Achilles enthesophytes consistent with tendinosis. No tear identified. The visualized under fascia is normal in thickness without tear. Laterally, the peroneal tendons are thickened with intermediate signal consistent with tendinosis. A discrete tear not identified. The superficial peroneal retinaculum is intact. The lateral ligaments are grossly intact. Medially, the visualized medial flexor tendons demonstrate normal thickness and signal without tendinosis or tear. The deep deltoid ligament is intact. The spring ligament is intact. The partially imaged Lisfranc ligament appears intact. Anteriorly, the anterior extensor tendons demonstrate normal thickness and signal without tendinosis or tear. The bone marrow signal is without fracture. The talar dome is congruent. The subtalar joints intact. The sinus tarsi is nonedematous. The midfoot is congruent. The plantar musculature demonstrates normal bulk and signal. Remaining soft tissues are unremarkable. MR/MR ankle RT wo con IMPRESSION: 1. Peroneal tendinosis without tear. 2. 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 3. No acute osseous abnormality. Electronically authenticated by: FRANCES SMYTH Date: 10/05/2023 14:32
--- OUTSIDE RECORDS SUMMARY | 2023-10-05 10:25 | XMS_ITS | CCD ---
Author Name Unknown Address [address] [place] [address] Organization [facility] Care Team Providers Care Pulverizer Feeder Name Role Phone SPLAWSKI, RUTH B Unavailable [...] Unavailable Parisa Kathleen MD Primary Care Provider [phone] PARISA KATHLEEN Primary Care Unavailable KYREE ARTEAGA Attending Unavail able Parisa Kathleen Unavailable Allergies Allergy Classification Reported Allergen(s) Allergy Type Date of Onset Reaction(s) Facility Amphetamine / Dextroamphetamine (1 source) Amphetamine / Dextroamphetamine Drug Allergy [facility] 1600 Work Phone: dexmethylphenidate (1 source) dexmethylphenidate Drug Allergy [facility] 1600 Work Phone: (1 source) Amphetamine / Dextroamphetamine Drug Allergy 016 [facility] (1 source) dexmethylphenidate Drug Allergy 016 [facility] (1 source) Esomeprazole Drug Allergy [facility] (5 sources) dexmethylphenidate; Translations: [DEXMETHYLPHENIDATE] Drug Allergy Other (See Comments) [facility] (2 sources) Amphetamine aspartate / Amphetamine Sulfate / Dextroamphetamine saccharate / Dextroamphetamine Sulfate; Translations: [DEXTROAMPHETAMINE-A MPHETAMINE] Drug Allergy Unknown [facility] (4 sources) Esomeprazole; Translations: [ESOMEPRAZOLE] Drug Allergy Unknown [facility] (2 sources) Allergies Reconciled Propensity to adverse reactions Unknown [facility] Other (2 sources) Adderall *ADHD/ANTI-NARCOLEPS Y/ANTI-OBESITY/ANORE X Propensity to adverse reactions Unknown [facility] Other (2 sources) Whey Protein Drug allergy 018 Comment:whey [facility] Other (2 sources) Focalin XR *ADHD/ANTI-NARCOLEPS Y/ANTI-OBESITY/ANOR Propensity to adverse reactions 014 FOCALIN XR Comment:Freet ext Needs Updated. [facility] Other (2 sources) Adderall XR *ADHD/ANTI-NARCOLEPS Y/ANTI-OBESITY/ANO Propensity to adverse reactions 013 ADDERALL XR Comment:Freet ext Needs Updated. [facility] Other (2 sources) Focalin *ADHD/ANTI-NARCOLEPS Y/ANTI-OBESITY/ANORE XI Propensity to adverse reactions Unknown [facility] Other (2 sources) patient allergy list reviewed by nurse or physicia Propensity to adverse reactions 019 Comment:Done [facility] Other Medications Current Medications Medication Drug Class(es) Dates Sig (Normalized) Sig (Original) amoxicillin 500 mg oral capsule (4 sources) Penicillin-class Antibacterial Start: 10-19-2022 End: 10-26-2022 [...] / pseudoephedrine hydrochloride 60 mg oral tablet (3 sources) alpha-Adrenergic Agonist, Uncompetitive K-ohaymh-K-aspartate Receptor Antagonist, Sigma-1 Agonist Start: 07-10-2019 take 0.5-1 tablets by mouth every six hours as needed Capmist DM 60-15-400 MG 1/2 to 1 tablet as needed Orally every 6 hours Jul, Not-Taking/PRN fluticasone propionate 0.05 mg/actuat metered dose nasal spray (3 sources) Corticosteroid Start: 07-10-2019 take 1 spray(s) [...] (1 source) Polyene Antifungal Start: 06-27-2018 Nystatin 722416 UNIT/GM External Powder Quantity: 30 Refills: 0 Start : 27-Jun-2018 Active omeprazole 20 mg delayed release oral capsule (3 sources) Proton Pump Inhibitor Start: 05-11-2018 take [...] NOSTRIL TWICE DAILY. Quantity: 1 Refills: 0 Ruht Smyth MD Start : 11-Jul-2018 Active 15 [...] Active Problems Problem Classification Problem Date Documented Date Episodic/Chronic Abdominal pain (13 sources) Epigastric pain; Translations: [Epigastric pain] Onset: 07-19-2013 Episodic Acute and chronic tonsillitis (2 sources) Enlargement of tonsil or adenoid; Translations: [Hypertrophy of tonsil with adenoids] Onset: 11-05-2014 Chronic Adjustment disorders (2 sources) Adjustment disorder with depressed mood; Translations: [Adjustment disorder with depressed mood] Onset: 09-18-2013 Chronic Attention-deficit, conduct, and disruptive behavior disorders (2 sources) Attention deficit hyperactivity disorder; Translations: [Attention-deficit hyperactivity disorder, unspecified type] Chronic Esophageal disorders (7 sources) Eosinophilic esophagitis; Translations: [Gastroesophageal reflux disease] Onset: 01-30-2015 Chronic Fracture of upper limb (2 sources) Nondisplaced fracture of distal phalanx of right thumb, initial encounter for closed fracture; Translations: [Closed fracture of distal phalanx of finger] Episodic Gastritis and duodenitis (1 source) Duodenitis without bleeding; Translations: [Duodenitis without bleeding] Onset: 05-30-2018 Episodic Mood disorders (2 sources) Bipolar disorder, most recent episode depression; Translations: [Bipolar I disorder, most recent episode (or current) depressed, unspecified] Chronic Mood disorders (1 source) Mood disorders; Translations: [Depression, unspecified] Nausea and vomiting (1 source) Vomiting, unspecified; Translations: [Vomiting, unspecified] Onset: 05-30-2018 Nonspecific chest pain (4 sources) Precordial pain; Translations: [Precordial pain] Onset: 04-23-2015 Episodic Other circulatory disease (2 sources) Elevated blood-pressure reading without diagnosis of hypertension; Translations: [Elevated blood-pressure reading, without diagnosis of hypertension] Episodic Other connective tissue disease (2 sources) Pain in right foot; Translations: [Pain in right foot] Episodic Other connective tissue disease (2 sources) Pain in right foot Episodic Other disorders of stomach and duodenum (1 source) Other diseases of stomach and duodenum; Translations: [Other diseases of stomach and duodenum] Onset: 05-30-2018 Episodic Other ear and sense organ disorders (2 sources) Impacted cerumen; Translations: [Impacted cerumen, right ear] Episodic Other infections; including parasitic (1 source) [...] Chronic Other nutritional; endocrine; and metabolic disorders (2 sources) Obesity; Translations: [Obesity, unspecified] Onset: 06-27-2018 Chronic Other nutritional; endocrine; and metabolic disorders (2 sources) Body mass index 40+ - severely obese; Translations: [Body mass index (BMI) 45.0-49.9, adult] Chronic Other nutritional; endocrine; and metabolic disorders (1 source) Abnormal weight loss; Translations: [Abnormal weight loss] Onset: 05-30-2018 Episodic Other upper respiratory disease (2 sources) Bleeding from nose; Translations: [Epistaxis] Episodic Other upper respiratory disease (1 source) Epistaxis; Translations: [Epistaxis] Episodic Otitis media and related conditions (7 sources) Otitis media of bilateral ears; Translations: [Otitis media, unspecified, bilateral] Onset: 09-08-2018 Episodic Screening and history of mental health and substance abuse codes (1 source) H/O: psychiatric disorder; Translations: [Personal history of other mental disorders] Episodic Sprains and strains (6 sources) Sprain of tibiofibular ligament of right [...] joint, forearm] Onset: 06-27-2018 Unclassified (1 source) Hzfktvjymk-srgjliq-ml rtussis, combined [DTP] [DtaP]; Translations: [Beimyqpbjm-gcddpnc-j ertussis, combined [DTP] [DtaP]] Onset: 10-24-2014 Unclassified (1 source) Vaccine product containing only acellular Bordetella pertussis and Clostridium tetani and Corynebacterium diphtheriae antigens (medicinal product); Translations: [Puroirvysl-saiuomh-e ertussis, combined [DTP] [DtaP]] Onset: 10-24-2014 Viral infection (6 sources) Infectious mononucleosis; Translations: [Infectious mononucleosis, unspecified without complication] Onset: 08-23-2014 Episodic Past or Other Problems Problem Classification Problem Date Documented Da te Episodic/Chronic Acute bronchitis (2 sources) Acute bronchitis, unspecified; Translations: [Acute bronchitis] Onset: 08-12-2017 Episodic Genitourinary symptoms and ill-defined conditions (2 sources) Dysuria; Translations: [Dysuria] Onset: 12-13-2018 Episodic Headache; including migraine (2 sources) Headache; Translations: [Headache] Onset: 04-22-2016 Episodic Immunizations and screening for infectious disease (5 sources) Contact with and (suspected) exposure to other viral communicable diseases; Translations: [CONTCT EXPS OTH VIRL COMMUNICABL DZ] Onset: 06-07-2020 Resolved: 12-03-2021 Episodic Intracranial injury (3 sources) History of concussion injury of brain; Translations: [Personal history of traumatic brain injury] Onset: 04-21-2017 Episodic Mycoses (2 sources) Candidiasis of skin and nails; Translations: [Candidiasis of skin and nail] Onset: 06-27-2018 Episodic Nausea and vomiting (3 sources) Vomiting; Translations: [Vomiting alone] Onset: 2018 Episodic Noninfectious gastroenteritis (2 sources) Non-infective enteritis and colitis; Translations: [Noninfective gastroenteritis and colitis, unspecified] Onset: 01-13-2018 Episodic Other connective tissue disease (2 sources) Enthesopathy of hip region; Translations: [Enthesopathy of [...] Onset: 04-27-2014 Episodic Other connective tissue disease (2 sources) Muscle pain; Translations: [Unspecified myalgia and myositis] Onset: 12-16-2017 Episodic Other connective tissue disease (1 source) Achilles bursitis or tendinitis; Translations: [Achilles bursitis or tendinitis] Onset: 05-15-2015 Episodic Other connective tissue disease (1 source) Bicipital tenosynovitis; Translations: [Bicipital tendinitis, left shoulder] Onset: 04-05-2018 Episodic Other connective tissue disease (1 source) Pain in right hand; Translations: [Pain in right hand] Onset: 06-07-2015 Episodic Other connective tissue disease (1 source) Spasm; Translations: [Spasm of muscle] Onset: 04-27-2014 Episodic Other connective tissue disease (1 source) Achilles bursitis; Translations: [Achilles bursitis or tendinitis] Onset: 05-15-2015 Episodic Other connective tissue disease (1 source) Pain in forearm; Translations: [Pain in joint, forearm] Onset: 06-27-2018 Episodic Other gastrointestinal disorders (2 sources) Diarrhea; Translations: [Diarrhea] Onset: 10-10-2013 Episodic Other gastrointestinal disorders (1 source) Diarrhea, unspecified; Translations: [Diarrhea, unspecified] Onset: 10-10-2013 Episodic Other inflammatory condition of skin (2 sources) Solar erythema; Translations: [Contact dermatitis and other eczema due to sunburn] Onset: 04-05-2018 Episodic Other injuries and conditions due to external causes (2 sources) Sprain of joint; Translations: [Unspecified site of sprain and strain] Onset: 07-13-2014 Episodic Other injuries and conditions due to external causes (2 sources) Sprains and strains of joints and adjacent muscles; Translations: [Other specified sites of sprains and strains] Onset: 06-28-2013 Episodic Other lower respiratory disease (5 sources) Cough; Translations: [Acute cough] Onset: 07-19-2013 Episodic Other lower respiratory disease (1 source) Dyspnea; Translations: [Other dyspnea and respiratory abnormalities] Onset: 04-23-2015 Episodic Other non-traumatic joint disorders (1 source) Pain in left wrist; Translations: [Pain in left wrist] Onset: 05-15-2014 Episodic Other non-traumatic joint disorders (1 source) Pain in wrist; Translations: [Pain in left wrist] Onset: 05-15-2014 Episodic Other nutritional; endocrine; and metabolic disorders (1 source) Overweight; Translations: [Overweight] Onset: 05-15-2014 Episodic Other nutritional; endocrine; and metabolic disorders (1 source) Polydipsia; Translations: [Polydipsia] Onset: 07-19-2013 Episodic Other nutritional; endocrine; and metabolic disorders (1 source) Overweight; Translations: [Overweight] Onset: 05-15-2014 Episodic Other nutritional; endocrine; and metabolic disorders (1 source) Excessive thirst; Translations: [Polydipsia] Onset: 07-19-2013 Episodic Other upper respiratory infections (10 sources) Acute sinusitis, unspecified; Translations: [Sore throat symptom] Onset: 07-08-2015 Resolved: 12-03-2021 Episodic Skin and subcutaneous tissue infections (1 source) Cellulitis and abscess of lower leg; Translations: [Cellulitis and abscess of leg, except foot] Onset: 02-12-2015 Episodic Spondylosis; intervertebral disc disorders; other back problems (2 sources) Low back pain; Translations: [Lumbago] Onset: 08-24-2018 Episodic Unclassified (1 source) Acute cough; Translations: [Acute cough] Onset: 10-19-2022 NEGATED: Highlighted row has not occurred!Residual codes; unclassified (1 source) Disease Episodic Results Test Name Value Interpretation Reference Range Facility COVID Quick Testingon 2021 Result Negative [facility] Other Ambulatory Clinical Summaryo n 12-25-2020 Ambulatory Clinical Summary {[id number] Normal [facility] Family Medicine Video Visit - Telehealthon 12-25-2020 Family Medicine Video Visit - Telehealth 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 Acute nasopharyngitis [common cold] (J00: Acute [...] interactive video communications from my office using [employer] due to the restrictions of the COVID-19 pandemic. No physical exam was conducted other than those areas of the body visible to telecommunications with the patient located at [address] [place] [address], in vehicle in parking lot., with aunt [...] Ordered: TELEHEALTH Office Visit Level 2 New 79868 Sore throat (J02.9: Acute pharyngitis, unspecified) strep negative Ordered: Rapid Strep POC 68149 Orders: brompheniramine/dextromethorph an/PSE, 10 mL, Oral, QID for cough and congestion for 1 months, 240 mL, Refill(s) 0, [facility], 179, cm, 12/25/20 16:57:00 EDT, Height/Length Dosing, 138.5, kg, 12/25/20 16:57:00 EDT, Weight Dosing Follow-up With When Contact Information PARISA KATHLEEN MD, [address] [place] [address]- Additional Instructions: Patient Education BMI for Adults Problem List/Past Medical History Ongoing No qualifying data Historical No qualifying data Medications Bromfed DM oral syrup, 10 mL, Oral, QID, PRN Allergies No Known Allergies Social History Tobacco - No Risk, 12/25/2020 Normal [facility] Comment on above: Result Comment: Sissy hyman Signed By: Joan GILMAN CNP.[email or web address]\Date and Time Signed: 12/25/20 18:08 EDT Patient [...] height. This can be done either in American (U.S.) or metric measurements. Note that charts are available to help you find your BMI quickly and easily without having to do these calculations yourself. To calculate your BMI in American (U.S.) measurements, your health care provider will: [...] problems. ? BMI can be measured using American measurements or metric measurements. ? To interpret [...] 04/06/2005 Document Revised: 07/08/2018 Document Reviewed: 06/08/2018 [employer] Patient Education ? 2019 [email or web address]. [facility] Patient Letter FTon 2020 Patient Letter [facility] December 25, 2020 [place] [address] Please excuse LAURA FABIAN from school . Date and/or Time of Absence: From: 12/25/20 To: 12/26/20 May return to school on: 12/27/20 as long as feeling better overall and remains afebrile. Restrictions: None Provider Signature: Joan Gilman, MARKETING COMMUNICATION MANAGER-KINDERGARTEN TUTOR, FUNERAL HOME ASSISTANT-C Nurse Practitioner [address] [place] [address] [place] [address] [facility] Coding Summary.on 12-12-2020 Coding Summary. CD:[id number] Gh0bWw+PGh lYWQ+FO8ZMRHeG52ltWLhcO6DA5gWN I9NFORZSOTHDJ9VAQ5dnOJ2OTjjJ4Y ybiAv LlffwYSxRF80LCp0GAC0eEujWLhjvO 2ufNWnH3r0QePoYX12kK55WJwhOAXj XyQ1SaVojujznXBj M7xuBkOlzOTbQbp+PHRhYmxlIHdpZH IfQNdlKWCySgLefWvzNF8xDk1yQIEy LWNvbGxhcHNlOiBj m0swZYGuXAwkZT9vrFjkD0CfiVH9QS Crc9w4Pm24gDD+VCOzKOV8hRakGWwr y290MtCfd9hyHZI8 aCDuYYzkIMD5F65xi9I1VRMlGWXhEX T4iZD0aI5mxAvvozziW1QfhOFwAzW6 RHT8yFXjhM5kgYxw qrdjnZ5kCza+B24CZY1COPZTCQ5EEq h7X4VcDuxkzLP+XX74FNWgFN66bWCn oGJbd6minCv5GuDm DLAzSCC1rRhyYQuzk1BzQTEwB89joB Trl4A3NEOxiYcvxIKkXkYyyCE5vH9s SSwwrptlb5eyijzo Blivi0caue27uI73F61jJPhzCZKcTH C6YYVmHOXggCsras3dsX4rGi6+IDxj s6bwc2rsmBw1TbYb OJMdmkTjdAxhMNH5m4JkYy64V4IlqJ lhn7QbEhy1yx36zVSde5W1wJT6KFnb OVCbwB1tGVfpYtX1 LYMzIzQarK47qHGzZOjhMt4qsRcwaD zdIR9dOZGygofwZORvrC2tZGSszZIp oVpwGT2cEORuwtuu p917OvMnZZJ5MZKxwDVxG5TpaV7tAj KmUWLhBCUaD9EjqZApNWuvF441PYql SbG1IAQwytRsC4Gy WKPgcLcoUoT2k1U1Er0Uo6XzqawqZB G1ENqeAEA7LkY3HyZcUuN2F5UxDzg4 IIRbzZtzOQ7pY3Kf XTOdgcebdxjxwVF5HUKpOKWneZ74rJ LcHKzdMp7qx1S9t466IVKdRYWrhM48 Di5vdZcqTKWdoZPD lW4baexsc3rzsenhKzHqALYbUDs1TV h3ZMMqgAvuCpWvXSH4NrH5NPP7uNZf yE8fvVknnldacK6g Oyc+A10agN3iJXP7KYK6yojbVWEcay VdKL64PD26I7BzHugoyGGqeXQ+PGRp wqDgwBlcWS5aRbHa x5czl4LmSNinY9RkCXRkDQmiUep4FB UeHHH2xZS1bB2cNMAbVUisi3K0cCT9 V0FibwJhbr0rq9vk HSQyDWlcV39pjHWju1B9NENomFT2PQ SxjNwkNzLynM62Cqi+WCBaeEvej2Le Bhqju5zks4iqvQg7 TvXfZVSguvHknDwvTED3y5JfNb13E6 6yVWqaLTOqPLKdDTHgZVNnuEelpv1f sX6oOs5+PGNvbCB3 qWT9pO4eDNGzFeQ3JUhfL721FrPfpN VrQqsrg8ldz7sfmIu3FvKoMQQpamIa tNlcRVH4w3OrRm04 L77mYSzjRCXzETOjGHFbUDDnnHoukn 3doG0gRt4+LR7bj3iclm40eY00sIJ+ UCTuQMA6xBgjLDxu WEDuqM9jUTgbDiN5OGMeYyKceU15fT QtKWnbTo0uhUbmwDnfIM3fFGThcwlf e585VtQkk1jrKHRp vKWjBWvyZOP7L03nd3K8QBDjOKMyRY L3kHA7dD0uwVvwmnbqzKWmdHyltkMt pKzqHBcnOXwzK601 JNZzfGgpMtEiiTxgdtPfYsEvETd9Q8 TiQbz6JMFdnJaoYS5fwPQyFAiiIg6a vYanvDgeCW2zOITd gndun971MmPgk2dqISDbcUUsCJjlGE S4J21mu5S1PVMkAOGyFVU3aKV2wY4t bGlnbjogbGVmdDsg ydOlfMsfZDfuHQkgS989HWCltRvjPy EfqzAsBOLnlBV5OI88PH11kARgi5M0 vQM5M0EcOEGztxls lqymvBR8XFEpOLSknD47Ma5prGsmCv 1iZXXfBDZ1NTCecXScV2BevU5kJuVd ARPwWSVhV1BhjICh XPgzI685HAbnPeS3SZVqvnXpE8FzSB OoyFgxYhF8r0T0Aq4FG4F2XL37ON82 pBQyh4C4kDI9C8Hl GYWhooipsqkrqJS1QXHlGRAqcG06Yv 0cuDqgSm6eYLKxJBH0JNRboHMbF7Zg pP8aYdOgUBMgVTLs S0DjkYTeCUjvL761OTaoAhL1OFGenz ShO7VaUEIzfXhnWxW5f5G9Jn3HVCp3 CG77JS69vNFif9H5 uSI5I9ExKAMbdkxjlzqqpUB0SWWaPY HjuS71Ae4coKgjIu5dLPXrSPB8QGWm lHYfE0SncP2kEjVo UEKoRFAjH3XeoCWaUQnaS188HLvnVt X4REQkmuHdN2DgSRUmgDbfRzC7d8Q4 Ci8ATJZzCN08UPB8 vUA0VM92LL73Y7SjXetyyVSfrCT+PH RhYmxlIHdpZHRoPScxMDAlJyBzdHls SJ1iAz1sZQRrAQHb nNoecRNbFeGlx1pdVLRbYMthPZ2gzU weP9BtlJX4OBXhm3t1Tp61A54rZ4Ex dXA+TTIunQH4bRD1 zK4iOvUaBgA2HPzzA695RjIidTVbRs oyo7ctn6ueaEo8LqT0VPSuniFnzAfm VAF4q4GdQg78K79q UGhhZAGhGRDpPMZrKLQwzNkmlj0vxY 9wIi8+YEGgqIE8zTN5iQ0rGcHiKvI2 AVsdV984CvAjsKIp Wrdzo4ime0ediJv8SoBnZLEtmnKliJ uoRVQ2w0XoJx46P4CzuCivl3VhZmr2 xm76zAAeu8P3qTM7 G9OuSUVwftnpnVSpnLwyOX8mRWWbkc dsNUAdyT3jSIRrD5i2ElUjYyH8QQom C6WajwC8JVBuhCRv ZAylQHN6E98ec8O1WPIfYRPmQIR2nL G9nN3kiFggxokohRHypQcviuKnaFjg JUyjZQryK311BADd hPwkAOAtnZ1jBRCqlAInfMyfEA3nSJ CxzvnyWxZMKvVCVqKRGUimLF2MUU3K GBHOUKKWWNS3E5Cs Sgt5HOAhxEwaUO7mkFNcJAshHz8gyG lezYayKK9oXUSqawkkXKZirL0vUGRi fIBvpAodDQ9hHAGf qvjmj815WmGfVDX5LBImiHNhJ6XawZ 9gDkVtBJKnBXEbO4PxcJDrDWavI105 FFcwWpG3WDIfiuSa Z7OpDOAzyFkuTwQ1g4V1Sv0rSN4gNc 2dYFNtYC52BW66wNQcu8E8zXI0B8Tf ZGRpbmctcmlnaHQ6 FWMlVNYzbB77bJLqJIbfHf9zf1M2x9 02ITDoSMMzaB17Vp0vtJcwPOXjsZSD hX8wdnnqz6lncuwt MzQmPLMtIMd4IDw3UKTvbBwcFxEnVU D1OtU5CAE8hHKbwF8pxAgbecvmsG7x Oyc+MTggWWVhcnM8 P8EeGhn1BMHkuZtuQL1pkUGjGEdmNk 0lwPhedDvoQU8cTNWhczlxUBDyfE8c QSLcwYCalYucNG3h AYRxqxrob765AfSkPRB6EKAxrVFvW2 PifP8gYjBdFYGyJCNeF9KefZYjKIlw S401UFwwGsZ9WJTy feKhI5JgLDVblUtnOrU4g6W2Wh7TZY vsFT15SU87jVLmy6E3yIR9C5MkMDHi utlrnsgkjPI4KWSh RYLebU38mAKoGMsrVd3yv8C2n602EW YoCKPqrG09Ms2tsNqpEMXgfYLWqP8e lznmq7dyhjvlWuYp JVBlDEd6UNu5VZMqgZriNaQnDZO3Qy V9KOG6sEPkrM2djVvdbembzN7oYsp+ DV4zvwugxsW3SN37 OD99M8CrPujnlTNmrJX+PHRhYmxlIH odFAJwMGmaNOOnQoDzqNaeTG8gVl3y ZGVyLWNvbGxhcHNl GxTpk3kpCGGlZRxqDB7fsHslS6ItyF B2ILOrv5s2Fl01X95qV6StzAC+PGNv lYS7wRE7gF2iViVc SvZ2IHrlE313CbXuxKRhMqnjg3wqz3 xcjRz2OeVmLEHtyaLuaGyeOKX8o9Tz Qf22E01mGTqyGSAy KVWeAYVbRVOkiAxjmp4pkM4iMl9+PG EydDM1iFO0qM9pUgOzUfZ7EQjmK543 BnXnxKFhVgylH05u F9EmcHW+WCUqXsd3NMJhgEqrUO3yjM ThPTaiKg7pXQW6CsMaLgEeOQxrJ3Hp ZGRpbmctcmlnaHQ6 ZDRkEFOetS95Bl1esBvdUy3mEDUjXB T9ACPegKVyT9JcyS3vRlNeGRLbPDDm H9JalZNsEMcqM301 DJjmZbP1WSJtyhFcL4MsIBCvrZjdVa C3i1W9Pp5RzKaalLFvUR3jVnRwXMp3 L9VyHzf8OBSoyTyq NU0vxXDcZJovLy1ylAxlyRxsRC3xXQ Xbzvttw898JwQqe1udETIqqAInHMie OJD9H83jq4E9NPNo HAIiMBQ0cMJ1pR6kcNuhqvdvfLKqvF nortYgcKdgIUmgOVdqN066TZIayMjm ScVDCjl2A0KdKkh1 POGqqBvuJN8ezMMsHUbyAu1oeLjwsS veXP7zYTKrumrfu582FmMbn6tyHUAy rASpYFekVKX7Q64c g6E7FHHqVNAnCZE0uRI2jA8fpOzpsf hxwYAooUypguRuvMgiGRghSRghX391 RYRmzGaySw8XCrq5 C8QsWwy2QPXdhPuqIG6acZCtNHktUa 9liDceuLvlBM1bEZTblmjdc884PbEg n9vkFYXxaDGqLTjp QPG9S09sq4E0YBCiCHOhPJW1bRE8pZ 1hbGlnbjogbGVmdDsgdmVydGljYWwt GRxiF548PMSrdSia PlBheWVyOjwvdGQ+JK81lc07G3JxEb eiWgf3OHOfYSQ9tHK6iF8mMYZlCLgd t2R0mZN4L7MpiuIn ci1j (more content not included)... Normal [facility] Discharge Instructionson Discharge Instructions [id number]:127 Normal [facility] Prescriptions/Work Noteson 0 12-06-2020 Prescriptions/Wor k Notes [id number]:127 Normal [facility] Auto Diffon 12-05-2020 Basophils/100 WBC (Bld) 0.8 % Normal 0.0-2.0 [facility] Comment on above: Order Comment: Order Added by Discern Expert. Performed By: #### 2 [id number], [id number], [id number], [id number], [id number], [id number] ####[address] [place] [address] Basophils/Leukocy lilly Auto (Bld) [Pure # fraction] 0.1 E9/L Normal 0.0-0.2 [facility] Comment on above: Order Comment: Order Added by Discern Expert. Performed By: #### 2 [id number], [id number], [id number], [id number], [id number], [id number], [id number] ####[address] [place] [address] Eosinophils/100 WBC (Bld) 3.6 % Normal 0.0-8.0 [facility] Comment on above: Order Comment: Order Added by Discern Expert. Performed By: #### 2 [id number], [id number], [id number], [id number], [id number], [id number], [id number] ####[address] [place] [address] Eosinophils/Leuko cytes Auto (Bld) [Pure # fraction] 0.3 E9/L Normal 0.0-0.5 [facility] Comment on above: Order Comment: Order Added by Discern Expert. Performed By: #### 2 311689, 1567082, 5500735, 25545120, 0633610, 3917055, 9168450 ####[address] [address] Lymphocytes/100 WBC (Bld) 39.6 % Normal 14.0-50.0 [facility] Comment on above: Order Comment: Order Added by Discern Expert. Performed By: #### 2 353497, 1271193, 5616061, 38722883, 0400322, 5714608, 5592010 ####[address] [address] Lymphocytes/Leuko cytes Auto (Bld) [Pure # fraction] 3.2 E9/L Normal 1.0-4.0 [facility] Comment on above: Order Comment: Order Added by Discern Expert. Performed By: #### 2 948729, 1911072, 7279245, 35388133, 2777112, 6968111, 1496943 ####[address] [place] [address] Monocytes/100 WBC (Bld) 7.9 % Normal 4.0-14.0 [facility] Comment on above: Order Comment: Order Added by Discern Expert. Performed By: #### 2 656380, 7063742, 8621179, 16194967, 4271259, 1544101, 2470755 ####[facility] [address] [place] [address] Monocytes/Leukocy lilly Auto (Bld) [Pure # fraction] 0.6 E9/L Normal 0.2-1.0 [facility] Comment on above: Order Comment: Order Added by Discern Expert. Performed By: #### 2 600329, 4553206, 3496099, 23225582, 6472739, 2487808, 5711165 ####[facility] [address] [place] [address] Neutrophils/100 WBC (Bld) 48.1 % Normal 36.0-75.0 [facility] Comment on above: Order Comment: Order Added by Discern Expert. Performed By: #### 2 349216, 8293383, 7810413, 25075663, 0143953, 9525659, 5322894 ####[facility] [address] [place] [address] Neutrophils/Leuko cytes Auto (Bld) [Pure # fraction] 3.9 E9/L Normal 2.0-7.5 [facility] Comment on above: Order Comment: Order Added by Discern Expert. Performed By: #### 2 409495, 4241609, 1664490, 42888331, 9574965, 7810025, 3192488 ####[facility] [address] [place] [address] BMPon 12-05-2020 Anion gap [Moles/Vol] 12 mmol/L Normal 6-16 [facility] Comment on above: Order Comment: The s pecimen for this test has been found unacceptable due to hemolysis as determined by Lia was contacted and the following determination was made to redraw the patient. Performed By: #### 2 444537, 6979415, 2088832, 34908570, 5090182, 7741415, 8597278 ####[facility] [address] [place] [address] Calcium [Mass/Vol] 9.1 mg/dL Normal 8.9-11.1 [facility] Comment on above: Order Comment: The s pecimen for this test has been found unacceptable due to hemolysis as determined by SW.Pia was contacted and the following determination was made to redraw the patient. Performed By: #### 2 057552, 3898344, 3812835, 73582495, 6694772, 2651880, 1520439 ####[facility] [address] [place] [address] Chloride [Moles/Vol] 101 mmol/L Normal 101-111 [facility] Comment on above: Order Comment: The s pecimen for this test has been found unacceptable due to hemolysis as determined by SW.Pia was contacted and the following determination was made to redraw the patient. Performed By: #### 2 915651, 8050741, 0769447, 60850729, 0041605, 6025250, 9492515 ####[facility] [address] [place] [address] CO2 [Moles/Vol] 28 mmol/L Normal 21-31 [facility] Comment on above: Order Comment: The s pecimen for this test has been found unacceptable due to hemolysis as determined by SW.Pia was contacted and the following determination was made to redraw the patient. Performed By: #### 2 489635, 9880376, 7434532, 37534986, 3675401, 1356055, 2896205 ####[facility] [address] [place] [address] Creatinine [Mass/Vol] 0.9 mg/dL Normal 0.5-1.3 [facility] Comment on above: Order Comment: The s pecimen for this test has been found unacceptable due to hemolysis as determined by SW.Pia was contacted and the following determination was made to redraw the patient. Performed By: #### 2 398449, 6277079, 4619471, 95374638, 1819505, 2090012, 6843398 ####[facility] [address] [place] [address] Glucose [Mass/Vol] 107 mg/dL Normal 55-199 [facility] Comment on above: Order Comment: The s pecimen for this test has been found unacceptable due to hemolysis as determined by MARTHA.Pia was contacted and the following determination was made to redraw the patient. Result Comment: If t his glucose result represents a fasting glucose, interpretation should refer to the following reference range: 55-99 mg/dL Performed By: #### 2 590980, 2160777, 4303858, 87671293, 4347671, 9143074, 1771041 ####[facility] [address] [place] [address] Potassium [Moles/Vol] 4.3 mmol/L Normal 3.5-5.3 [facility] Comment on above: Order Comment: The s pecimen for this test has been found unacceptable due to hemolysis as determined by MARTHA.Pia was contacted and the following determination was made to redraw the patient. Performed By: #### 2 979754, 8742828, 6991691, 70784177, 4378721, 9857138, 5592444 ####[facility] [address] [place] [address] Sodium [Moles/Vol] 137 mmol/L Normal 135-145 [facility] Comment on above: Order Comment: The s pecimen for this test has been found unacceptable due to hemolysis as determined by MARTHA.Pia was contacted and the following determination was made to redraw the patient. Performed By: #### 2 056438, 8461335, 3487169, 94211505, 0031534, 3932871, 3148506 ####[facility] [address] [place] [address] Urea nitrogen [Mass/Vol] 16 mg/dL Normal 5-21 [facility] Comment on above: Order Comment: The s pecimen for this test has been found unacceptable due to hemolysis as determined by MARTHA.Pia was contacted and the following determination was made to redraw the patient. Performed By: #### 2 468892, 1758597, 3917234, 49023313, 8461013, 0453329, 0195215 ####[facility] [address] [place] [address] Urea nitrogen/Creatini ne [Mass ratio] 18 No Units Normal 10-20 [facility] Comment on above: Order Comment: The s pecimen for this test has been found unacceptable due to hemolysis as determined by Pia was contacted and the following determination was made to redraw the patient. Performed By: #### 2 113742, 0778685, 6913158, 23602502, 3022605, 9147487, 1989899 ####[facility] [address] [place] [address] CBC w/ Auto Diffon Erythrocyte distribution width (RBC) [Ratio] 13.5 % Normal 10.9-14.2 [facility] Comment on above: Performed By: #### 2 881601, 9398760, 3920487, 86079942, 3655634, 7508991, 6532572 ####[facility] [address] [place] [address] Hematocrit (Bld) [Volume fraction] 48.9 % Normal 37.7-49.0 [facility] Comment on above: Performed By: #### 2 195053, 4018391, 6718894, 36300865, 0986593, 6731422, 4262128 ####[facility] [address] [place] [address] Hemoglobin (Bld) [Mass/Vol] 17.2 g/dL Normal 13.5-17.5 [facility] Comment on above: Performed By: #### 2 341859, 9247320, 7928527, 20182272, 8760127, 1001237, 3280976 ####[facility] [address] [place] [address] MCH (RBC) [Entitic mass] 28.9 pg Normal 27.0-34.0 [facility] Comment on above: Performed By: #### 2 569902, 1565113, 2530484, 70725744, 3784274, 2685468, 4717220 ####[facility] [address] [place] [address] MCHC (RBC) [Mass/Vol] 35.2 g/dL Normal 31.4-36.0 [facility] Comment on above: Performed By: #### 2 275510, 4590720, 3514150, 06123776, 3250214, 3350357, 1894590 ####[facility] [address] [place] [address] MCV (RBC) [Entitic vol] 82.1 fL Normal 80.0-100.0 [facility] Comment on above: Performed By: #### 2 722332, 6586915, 7470590, 38867141, 4338864, 7269876, 6311905 ####[facility] [address] [place] [address] Platelet mean volume (Bld) [Entitic vol] 8.6 fL Normal 6.4-10.8 [facility] Comment on above: Performed By: #### 2 926918, 4097326, 9457008, 45637508, 6690360, 3903572, 6658674 ####[facility] [address] [place] [address] Platelets (Bld) [#/Vol] 241.0 E9/L Normal 150.0-500. 0 [facility] Comment on above: Performed By: #### 2 730712, 1086360, 2906081, 14660894, 1837854, 3542151, 5253854 ####[facility] [address] [place] [address] RBC (Bld) [#/Vol] 6.0 E12/L High 4.3-5.9 [facility] Comment on above: Performed By: #### 2 221090, 2355223, 4424539, 52487275, 3991134, 3953649, 7737942 ####[facility] [address] [place] [address] WBC corrected for nucl RBC Auto (Bld) [#/Vol] 8.0 E9/L Normal 4.0-11.0 [facility] Comment on above: Performed By: #### 2 049830, 4862017, 2381137, 60873772, 2297384, 5000537, 4139042 ####[facility] [address] [place] [address] Capillary Glucose POCon 11-08 Glucose [Mass/Vol] 89 mg/dL Normal 55-99 [facility] Comment on above: Result Comment: King frey RN/ Performed By: #### 2 77710847 ####[facility] [address] [place] [address] Consent for Treatmenton 11-08 Consent for Treatment [id number]:127 Normal [facility] ED Clinical Summaryon 2020 ED Clinical Summary [address] [address] ED Clinical Summary Person Information Name: LAURA FABIAN II [facility] Age: 20 Years : 2000 Sex: Male Language: American PCP: PARISA KATHLEEN MD Marital Status: Single Phone: [phone] Visit Id: Visit Reason: Abdominal pain; Syncope/Near [...] 12/05/2020 10:34:37 12/05/2020 10:34:37 12/05/2020 10:34:37 ADDRESS: [address] [id number] [facility] DOC NOTES: MEDICAL INFORMATION: Prescriptions Given: [...] Follow up: With: Address: When: PARISA KATHLEEN [address] [place], [place] [id number] Business (1) In 3 days DIAGNOSIS: Abdominal pain; Mononucleosis; Syncope Normal [facility] ED Note-Nursingon 12-05-2020 ED Note-Nursing Pt updated on condit ion per Dr Canela Normal [facility] ED Note-Physicianon 12-06-19 ED Note-Physician Basic [...] medications Follow-up With When Contact Information PARISA HEVER In 3 days [address] [email or web address] (1) Additional Instructions: Patient Education Infectious Mononucleosis [...] 07:52:00) Lymph Auto: 39.6 % (12/05/20 07:52:00) Chaffee Auto: 7.9 % (12/05/20 07:52:00) Eos Auto: 3.6 % (12/05/20 07:52:00) Basophil Auto: 0.8 % (12/05/20 07:52:00) Neutro Absolute: 3.9 E9/L (12/05/20 07:52:00) Lymph Absolute: 3.2 E9/L (/ (more content not included)... Normal [facility] Comment on above: Result Comment: Elec tronically [...] these instructions at home: Medicines ? Take ltot-gxj-bucivrl and prescription medicines only as told by [...] your condition for any changes. ? Take uimi-den-jnlsvgw and prescription medicines only as told by [...] 05/05/2006 Document Revised: 12/04/2019 Document Reviewed: 12/04/2019 [employer] Patient Education ? 2020 [email or web address]. Infectious Disease Infectious Mononucleosis Infectious mononucleosis is [...] cases, treatm (more content not included)... Normal [facility] ED Patient Summaryon 021 ED Patient Summary [place] [id number] Patient Discharge Instructions Person Information Name: LAURA FABIAN II Age: 20 Years Arrival Date: 12/05/2020 07:21:26 Discharge Diagnosis: Abdominal pain; Mononucleosis; Syncope Primary Care Physician: PARISA KATHLEEN MD Provider Information Primary Provider: Kyle Canela DO Advanced Dial Refinisher:None The exam and treatment you received in the Emergency Department were for an urgent problem and are not intended as complete care. It is important that you follow up with a doctor, nurse practitioner, or physician?s bilingual teacher assistant for ongoing care. If your symptoms [...] Follow-up Instructions: With: Address: When: PARISA KATHLEEN [address] [place], [place] [id number] [employer] (1) In 3 days In the event that this physician does not participate in your insurance network, please consult with your insurance company to find a nearby participating provider. Patient Education Materials: Infectious Mononucleosis; Syncope; Abdominal Pain, Adult A MESSAGE TO ALL PATIENTS REGARDING OPIOIDS PRESCRIPTION OPIOIDS: WHAT YOU NEED TO KNOW Prescription opioids can be used to help relieve sjcgvzbf-rj-myulre pain and are often prescribed following a [...] be struggling with addiction, tell your health care aide and ask for guidance or call [facility] National Helpline at (more content not included)... Normal [facility] Hep Func Panelon 12-05-2020 Albumin [Mass/Vol] 4.2 g/dL Normal 3.3-5.0 [facility] Comment on above: Order Comment: The s pecimen for this test has been found unacceptable due to hemolysis as determined by MARTHA.Pia was contacted and the following determination was made to be redrawn. Performed By: #### 2 591322, 3791399, 0441370, 17385396, 5849518, 3914875, 0110555 ####[facility] [address] [place] [address] Albumin/Globulin (S) [Mass conc ratio] 1.3 Normal 1.1-2.2 [facility] Comment on above: Order Comment: The s pecimen for this test has been found unacceptable due to hemolysis as determined by SW.Pia was contacted and the following determination was made to be redrawn. Performed By: #### 2 972973, 7028964, 1645044, 71776533, 7729586, 3711316, 7411529 ####[facility] [address] [place] [address] ALP [Catalytic activity/Vol] 71 Int._Unit/L Normal 21-98 [facility] Comment on above: Order Comment: The s pecimen for this test has been found unacceptable due to hemolysis as determined by SW.Pia was contacted and the following determination was made to be redrawn. Performed By: #### 2 522621, 1064061, 8629375, 72223151, 5136971, 7086761, 7534143 ####[facility] [address] [place] [address] ALT No additional P-5'-P [Catalytic activity/Vol] 81 Int._Unit/L High 6-46 [facility] Comment on above: Order Comment: The s pecimen for this test has been found unacceptable due to hemolysis as determined by SW.Pia was contacted and the following determination was made to be redrawn. Performed By: #### 2 852566, 3153020, 0087973, 30865337, 3557487, 5513540, 6610874 ####[facility] [address] [place] [address] AST [Catalytic activity/Vol] 54 Int._Unit/L High 5-43 [facility] Comment on above: Order Comment: The s pecimen for this test has been found unacceptable due to hemolysis as determined by SW.Pia was contacted and the following determination was made to be redrawn. Performed By: #### 2 006764, 6183659, 8820040, 93454495, 5836233, 2028666, 3738997 ####[facility] [address] [place] [address] Bilirubin [Mass/Vol] 0.9 mg/dL Normal 0.0-1.1 [facility] Comment on above: Order Comment: The s pecimen for this test has been found unacceptable due to hemolysis as determined by SW.Pia was contacted and the following determination was made to be redrawn. Performed By: #### 2 306176, 1429857, 3946557, 94229010, 9174954, 4376815, 6212294 ####[facility] [address] [place] [address] Bilirubin.direct [Mass/Vol] 0.1 mg/dL Normal 0.1-0.4 [facility] Comment on above: Order Comment: The s pecimen for this test has been found unacceptable due to hemolysis as determined by SW.Pia was contacted and the following determination was made to be redrawn. Performed By: #### 2 439893, 1647270, 9158902, 44433146, 0641102, 0175451, 8169709 ####[facility] [address] [place] [address] Bilirubin.indirec t [Mass or moles/Vol] 0.8 mg/dL Normal 0.1-0.9 [facility] Comment on above: Order Comment: The s pecimen for this test has been found unacceptable due to hemolysis as determined by MARTHA.Pia was contacted and the following determination was made to be redrawn. Performed By: #### 2 398874, 2462187, 7008766, 20705494, 1532498, 8234422, 3621361 ####[facility] [address] [place] [address] Globulin (S) [Mass/Vol] 3.3 g/dL Normal 1.4-4.0 [facility] Comment on above: Order Comment: The s pecimen for this test has been found unacceptable due to hemolysis as determined by SW.Pia was contacted and the following determination was made to be redrawn. Performed By: #### 2 686111, 3346030, 2163319, 94088806, 3984785, 9790139, 5174582 ####[facility] [address] [place] [address] Protein [Mass/Vol] 7.5 g/dL Normal 6.0-7.8 [facility] Comment on above: Order Comment: The s pecimen for this test has been found unacceptable due to hemolysis as determined by MARTHA.Pia was contacted and the following determination was made to be redrawn. Performed By: #### 2 410939, 0283436, 1872143, 82281669, 0723354, 5712970, 4047587 ####[facility] [address] [place] [address] Lipase Levelon 12-05-2020 Lipase [Catalytic activity/Vol] 30 U/L Normal 13-58 [facility] Comment on above: Order Comment: The s pecimen for this test has been found unacceptable due to hemolysis as determined by MARTHA.Pia was contacted and the following determination was made to be redrawn. Performed By: #### 2 665762, 7651610, 8352158, 22257603, 0456477, 8490772, 6017980 ####[facility] [address] [place] [address] Monitor Recordon 12-05-2020 Monitor Record [id number]#[id number]:127 Normal [facility] Chaffee Screenon 12-05-2020 Heterophile Ab LA Ql (S) Positive Abnormal Negative [facility] Comment on above: Performed By: #### 2 674992, 2303068, 7727789, 79792335, 1362323, 8674453, 5318539 ####[facility] [address] [place] [address] UA With Cult Reflexon 2020 Bilirubin Ql (U) Negative Normal Negative [facility] Comment on above: Performed By: #### 1 9855957 ####[place] [address] [place] [address] Clarity (U) CLEAR Normal Clear [facility] Comment on above: Performed By: #### 1 7405389 ####[facility] [address] [place] [address] Color (U) YELLOW Normal Yellow [facility] Comment on above: Performed By: #### 1 4619526 ####[facility] [address] [place] [address] Epithelial cells.squamous LM.HPF (Urine sed) [#/Area] 0-2 Normal 0-2 [facility] Comment on above: Performed By: #### 1 2125252 ####[facility] [address] [place] [address] Glucose Test strip (U) [Mass/Vol] Negative Normal Negative [facility] Comment on above: Performed By: #### 1 1069700 ####[address] [address] Hemoglobin Ql (U) Negative Normal Negative [facility] Comment on above: Performed By: #### 1 2885469 ####[address] [address] Ketones (U) [Mass/Vol] Negative Normal Negative [facility] Comment on above: Performed By: #### 1 7768158 ####[address] [address] [place].plasma/Li thium.RBC (Bld) [Mass ratio] 0-3 Normal 0-3 [facility] Comment on above: Performed By: #### 1 1665949 ####[address] [address] Mucus Ql (Urine sed) 1+ Normal [facility] Comment on above: Performed By: #### 1 5155379 ####[facility] [address] [place] [address] Nitrite Ql (U) Negative Normal Negative [facility] Comment on above: Performed By: #### 1 9399019 ####[address] [address] pH (U) 6.0 [pH] Invalid Interpretation Code 5.0-9.0 [facility] Comment on above: Performed By: #### 1 0125874 ####[address] [place] [address] Protein (U) [Mass/Vol] Negative Normal Negative [facility] Comment on above: Performed By: #### 1 7857101 ####[address] [address] Specific gravity (U) [Rel density] 1.025 Invalid Interpretation Code 1.005-1.03 0 [facility] Comment on above: Performed By: #### 1 4671196 ####[address] [address] Type of Urine collection method Clean Catch Normal [facility] Comment on above: Performed By: #### 1 4932206 ####[place] [address]57 Urobilinogen Qn (U) 0.2 {Terence'U}/dL Normal 0.0-1.0 [facility] Comment on above: Performed By: #### 1 6045943 ####[address] [address] WBC Auto Ql (U) Negative Normal Negative [facility] Comment on above: Performed By: #### 1 4190806 ####[place] [address] WBC LM.HPF (Urine sed) [#/Area] 0-5 Normal 0-5 [facility] Comment on above: Performed By: #### 1 4985215 ####[address] [address] US Abdomen, Limitedon 2020 US Abdomen, Limited [...] Snyder MD, V. Transcribed by: ADITYA Technologist: BLM Normal [facility] eGFRon 12-05-2020 GFR/1.73 sq M.predicted among blacks MDRD (S/P/Bld) [Vol rate/Area] mL/min/{1.73_m2} Normal >=59 [facility] Comment on above: Order Comment: Order added by Discern Expert. Result Comment: eGFR is race adjusted. AA=. Performed By: #### 2 448705, 7942483, 8381903, 16546930, 4093413, 3512963, 1904024 ####[facility] [address] [place] [address] GFR/1.73 sq M.predicted among non-blacks MDRD (S/P/Bld) [Vol rate/Area] mL/min/{1.73_m2} Normal >=59 [facility] Comment on above: Order Comment: Order added by Discern Expert. Result Comment: Technical Fellow nehemias kidney disease could be indicated at eGFR's of less than 60 mL/min/1.73m2. Kidney failure is indicated at less than 15 mL/min/1.73m2. Performed By: #### 2 217994, 7783838, 8919388, 51745507, 8939607, 0720512, 9092675 ####[facility] [address] [place] [address] Covid-19 PCR (CVDTB)on 07-10 Covid-19 PCR DETECTED Abnormal NOT DETECTED [facility] Comment on above: Result Comment: This test is not yet approved or cleared by the [place] FDA. When there are no FDA-approved or cleared tests available, and other criteria are met, FDA can make tests available under an emergency access mechanism called an Emergency Use Authorization (EUA). The EUA for this test is supported by the Dean Of Education of Health and Human Service's (HHS's) declaration [...] used). Performed By: #### C VDTB #### [facility] [address] [place], [place] [address] Brian Rodrigues EUA Statement SEE BELOW Normal [facility] Comment on above: Result Comment: This test is not yet approved or cleared by the [place] FDA. When there are no FDA-approved or cleared tests available, and other criteria are met, FDA can make tests available under an emergency access mechanism called an Emergency Use Authorization (EUA). The EUA for this test is supported by the [place] of Health and Human Service?s (HHS?s) declaration [...] SARS-CoV-2. Performed By: #### C VDTB #### [facility] [address] [place], [place] [address] Brian Rodrigues COVID-19 PCRon 06-05-2020 SARS-CoV-2, JORGE L Not Detected Normal Not Detected [facility] Comment on above: Result Comment: This nucleic acid amplification test was developed and its performance characteristics determined by [employer]. Nucleic acid amplification tests include PCR and [...] assay. Performed By: #### C VDPCR #### [facility] [address] [place] [address] Brian Haywarden [facility] - [facility] 10-09-2018 [facility] - Established No report was sent Normal [employer] [facility] - [facility] 07-11-2018 [facility] - Established Chief Complaint Accompanied by [...] 1 capsule twice daily; Therapy: 11May2018 to (Evaluate:[id number]) Requested for: 05Jun2018; Last Rx:01Jun2018 Ordered Rx By: Ruth Smyth; Dispense: 30 Days ; #:60 Capsule Delayed Release; Refill: 3;For: Abdominal pain, epigastric, Bipolar depression, Chronic cough, Fatty liver, Gastroesophageal reflux, Vomiting; ELIZABETH = N; Verified Transmission to [facility] #6177 Cetirizine HCl - 10 MG Oral Tablet; TAKE 1 TABLET BY MOUTH EVERYDAY NEEDED FOR ALLERGIES; Therapy: [id number] to Recorded Rx By: PETR; Dispense: 30 Days ; #:30; Refill: 0; ELIZABETH = N; Record; Last Updated By: Ruth Smyth; 05/11/2018 9:20:10 PM CVS Nasal [place] 0.05 % Nasal Solution; USE 2 SPRAYS IN EACH NOSTRIL TWICE A DAY NEEDED; Therapy: [id number] to Recorded Rx By: CHARLETTE; Dispense: 30 Days ; #:15; Refill: 0; ELIZABETH = N; Record; Last Updated By: Ruth Smyth; 05/11/2018 9:20:10 PM Latuda 40 MG Oral Tablet; Therapy: [id number] to Recorded Dispense: 30 Days ; #:30; Refill: 0; ELIZABETH = N; Record; Last Updated By: Ruth Smyth; 05/11/2018 9:20:10 PM Vitals Vital Signs Recorded: [id number] 12:34PM Heart Rate84 Aplukbwytte48 Usqaokla531 Sekbovmha91 Tyznwi981.5 cm 2-20 Stature Afhaqwdisp45 % Hjwyze151.35 kg 2-20 Weight Twhliygvah12 % BMI Jyqsdjuyzk16.65 BMI Zbjvmqxxts70 % BSA Calculated2.3 O2 Yvllrnturs46 Physical Exam alert NAD WDON TM's nl sclera slightly injected, PERRL, EOM nl nose clear PWMM, no oral sores or pharyngitis no increased LN No thyromegaly lungs clear CV nl no CVA/SI tenderness abd soft with nl BS, no organomegaly or masses, non tender and non distended ext nl skin nl Results/Data [facility]oscopy Wsqfakgib80Jbs1780 12:04PMNon Ambulatory, Provider Test NameResultFlagReference Upper GI Endoscopy Pediatric(Report) Patient Name: Laura Fabian Procedure Date: 05/30/2018 12:04 PM Date of : 2000 Site: [facility] Ethnicity: Not or Race: White Attending MD: Ruth Smyth MD Procedure: Pediatric Upper GI Endoscopy Indications: Epigastric abdominal pain, Suspected esophageal reflux, Vomiting, Weight loss Providers: Ruth Smyth MD (Doctor) Pediatric Gastroenterology Referring MD: Medicines: General Anesthesia Complications: No immediate complications. Estimated blood loss: Minimal. Procedure: Pre-Anesthesia Assessment: - [place] Protocol: - Pre-procedure Verification: Prior to the [...] verified by the physician, the anesthesiologist, the chamber walker and the power technician in the procedure room at 12:36 [...] forceps for histology of suspected eosinophilic esophagitis. Huntley-colored mucosa was present. Inlet patches large and [...] Impression: - Esophageal mucosal changes. Biopsied. - Huntley-colored mucosa. - Mucosal nodule found in the [...] Duration Time Scope In: Scope Out: Provimage [email or web address]} Surgical [id number] 12:00AMSRuth guzman Test NameResultFlagReference Case Surgical Pathology(Report) Name LAURA FABIANMaxime Pathologist: VIRGINIA BAHENA MD Date of Procedure: [...] Epistaxis; ELIZABETH = N; Verified Transmission to [facility] #1625; Last Updated By: Nancy Geiger; 07/11/2018 1:09:14 PM Patient Discussion/Summary esophagitis and he had eosinophils he has whey antibodies improvement on omeprazole. Plan continue the omeprazole twice a day. He has appt with dietitian. RTC 3 months. For issues or concerns call the Office [phone]. 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 Signatures Electronically signed by : Ruth Smyth MD; Jul 11 2018 2:33PM EST (Author) Normal [facility] WHEY, IGGon 06-02-2018 WHEY, IGG 75.1 mcg/mL High <2.0 [facility] [place] Comment on above: Result Comment: The reference [...] was developed and its performancecharacteristics determined by [employer]. It has notbeen cleared or approved by the U.S. Food and DrugAdministration. Performed At:[facility] [employer] [address]RwvhvuzxSushma Conroy PhD HCLD(ABB)CLIA# [id number] Performed By: #### A LE83 ####[id number] [place] [address] IMMUNOCAP INTERP.IGEon 05-31 IMMUNOCAP INTERP.IGE SEE COMMENT Normal [facility] [place] Comment on above: Result Comment: REFE RENCE RANGE (IMMUNOCAP) IGE KU/L CLASS INTERPRETATION < 0.35 0 BELOW DETECTION 0.35- 0.69 1 LOW POSITIVE 0.70- 3.49 2 MODERATE POSITIVE 3.50- 17.49 3 HIGH SOUEJWTD18.50- 49 4 VERY HIGH MMOWEERI71 - 99 5 VERY HIGH POSITIVE >100 6 VERY HIGH POSITIVE Performed By: #### I CRRE ####[id number] [id number] INSULINon 05-31-2018 INSULIN 44 uIU/ml High 3 - 19 [facility] [place] Comment on above: Performed By: #### I NSUL ####[id number] [place] [address] WHEY,IGE,ICon 05-31-2018 WHEY,IGE,IC <0.35 Normal <0.35 [facility] [place] Comment on above: Result Comment: SEE IMMUNOCAP INTERP.IGE Performed By: #### I CW07 ####[id number] [place] [address] History and Physical - Surge ry > [...] AO x3Skin: nl Signatures/Attestation/Certifi cation:Provider/Team Contact Info-Pager [id number] Provider Inpatient Certification StatementN/A - observationpatient/other outpatient visits Electronic Signatures:Ruth Smyth) (Signed 30-May-2018 12:11)Authored: History of Present Illness, Allergies, Home Medication Review,Impression/Procedure, Review of Systems, Physical Exam,Signatures/Attestation/Ce rtification Last Updated: 30-May-2018 12:11 by Ruth Smyth) Normal [facility] [place] Patient Profile - Preop - Pe diatric v2on 05-30-2018 Protein mass conc Profile:Initial Info :How to be AddressedAnthonySpoken Language PreferredEnglishParental Spoken Language PreferredEnglishLegal CustodianParentsAre you currently using the Personal Electronic Health Record or IRL ConnectCAREnoAre you interested in learning more about [facility] for the management of yourhealthdeclinedStated Reason for AdmissionEGDPrimary Contact Name and NumberJanice [phone] Belongingsgiven to parent/guardianMedications Brought to HospitalnoPatient Belongings [...] for HIGH RISK.Are there any cultural, spiritual, quaker practices/values/needs that areimportant for us to knownoPain Scalenumerical 0-10Pain Scale Educationteaching providedCurrent Pain Level0 = NoneAcceptable Pain Level0 = NoneChronic Painno Additional Information:Information Review: Allergies, Home Meds and Significant Events have been Reviewed and Verifiedwith Patient/Familyyes Allergy, Intolerance, Adverse Event: Allergies: Focalin: Drug, Unknown, Active Electronic Signatures:Mara Galvan (ZOHREH) (Signed 30-May-2018 11:27)Authored: Profile, Additional Information Last Updated: 30-May-2018 11:27 by Mara Galvan) [facility] Preop Checkliston 05-30-2018 Preop Checklist Preop Checklist:Preo p Checklist: Arrival [id number] Arrival Time10:52 Procedure TypeEGD NPO [id number] 23:00 ID Band Onyes Allergy Bandyes Consent [...] 30-May-2018 11:14 by Mara Galvan (RN) Normal [facility] Surgical Pathology Depar tmenton 05-30-2018 [facility] Surgical Pathology Department Name LAURA FABIAN Pathologist: [...] METAPLASIA. Electronically Signed Out By VIRGINIA BAHENA MD/CAITLINBy the signature on this report, the individual [...] submitted in toto in one cassette.EXLexl/05/30/2018 Normal [facility] [place] Comment on above: Performed By: #### U [facility] ####[facility] Surgical Pathology [id number] [place] [address] Peds Gastroenterology - [place] schillingiainbetito 05-11-2018 Peds Gastroenterology - Established Chief Complaint [...] PM Vitals Vital Signs Recorded: 11May2018 08:14AM Qsprvgecayr76.6 F Heart Rate66 Selyrqjy802 Fqqglxrbi27 Fmlwcl305.4 cm Btyxoc661 lb BMI Sillqepazs09.22 BSA Calculated2.27 BMI Dodoyrwvxj81 % 2-20 Stature Zhrtatnsxj09 % 2-20 Weight Khosypyqpo20 % Physical Exam alert NAD WDON TM's [...] Vomiting; ELIZABETH = N; Verified Transmission to [id number]; Last Updated By: Melany GeigerMir Vracha; 05/11/2018 9:09:19 AM Endoscopy - Upper GI; Status:Active; Requested for:11May2018; Perform:[facility]; Due:09Aug2018; Last Updated By:Beth Murray; 05/11/2018 [...] fish. RTC after the scope. 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 End of Encounter Meds Omeprazole 20 MG Oral Capsule Delayed Release; TAKE 1 CAPSULE Daily; Therapy: 11May2018 to (Last Rx:11May2018) Requested for: 11May2018 Ordered Normal [facility] Vital Signs Date Time Vital Sign Value Performing Clinician Facility 09-10-2023 09:00-0500 Body height 175.26 cm Parisa Kathleen Other [facility] Other 09-10-2023 09:00-0500 Body mass index (BMI) [Ratio] 47.25 kg/m2 Parisa Kathleen Other [facility] Other 09-10-2023 09:00-0500 Body weight 145.15 kg Parisa Kathleen Other [facility] Other 09-10-2023 09:00-0500 Diastolic blood pressure 72 mm[Hg] Parisa Kathleen Other [facility] Other 09-10-2023 09:00-0500 Systolic blood pressure 112 mm[Hg] Parisa Kathleen Other [facility] Other 10-19-2022 11:52-0400 Body height 177.8 cm Kyree Arteaga [employer] Work Phone: [facility] 10-19-2022 11:52-0400 Body mass index (BMI) [Ratio] 45.63 kg/m2 Kyree Arteaga [employer] T[employer] Work Phone: [facility] 10-19-2022 11:52-0400 Body temperature 98.29 [degF] Kyree Arteaga KINDER[employer] TUTOR Work Phone: [facility] 10-19-2022 11:52-0400 Body weight 144.24 kg Kyree Arteaga [employer]ER[employer] TUTOR Work Phone: [facility] 10-19-2022 11:52-0400 Diastolic blood pressure 85 mm[Hg] Kyree Arteaga CNP Work Phone: [facility] 10-19-2022 11:52-0400 Heart rate 92 /min Kyree Arteaga CNP Work Phone: [facility] 10-19-2022 11:52-0400 Respiratory rate 16 /min Kyree Arteaga CNP Work Phone: [facility] 10-19-2022 11:52-0400 SaO2% (BldA) [Mass fraction] 95 % Kyree Arteaga CNP Work Phone: [facility] 10-19-2022 11:52-0400 Systolic blood pressure 133 mm[Hg] Kyree Arteaga CNP Work Phone: [facility] 12-03-2021 11:15-0400 Body height 175.26 cm Emma Hyacinth Other [facility] Other 12-03-2021 11:15-0400 Body mass index (BMI) [Ratio] 43.56 kg/m2 Emma Hyacinth Other [facility] Other 12-03-2021 11:15-0400 Body temperature 98.2 [degF] Emma Hyacinth Other [facility] Other 12-03-2021 11:15-0400 Body weight 133.81 kg Emma Hyacinth Other [facility] Other 12-03-2021 11:15-0400 Respiratory rate 18 /min Emma Hyacinth Other [facility] Other 12-03-2021 11:15-0400 SaO2% (BldA) [Mass fraction] 97 % Emma Hyacinth Other [facility] Other Encounters Encounter Date Encounter Type Care Provider Facility Start: 09-13-2023 End: 09-13-2023 ambulatory Parisa Hever Other [facility] Other Start: 09-13-2023 Telephone encounter Parisa Hever [facility] Start: 09-10-2023 End: 09-10-2023 ambulatory Parisa Hever Other [facility] Other Start: 09-10-2023 Encounter for other specified special examinations Parisa Kathleen [facility] Start: 09-10-2023 Office outpatient vi sit 15 minutes Parisa Hever [facility] Start: 10-19-2022 End: 10-19-2022 ambulatory PARISA KATHLEEN [facility] Start: 10-19-2022 End: 10-19-2022 Office outpatient new 20 minutes Kyree Arteaga [employer] Work Phone: [facility] Comment on above: Bilateral otitis med ia, unspecified otitis media type (Primary Dx); Sore throat; Acute cough Start: 05-05-2022 Routine or ch ild health check Parisa Hever Other [facility] Other Start: 05-05-2022 Well child visit Parisa Hever Other [facility] Other Start: 12-03-2021 End: 12-03-2021 ambulatory Emma Claros Other [facility] Other Start: 12-03-2021 Office outpatient vi sit 15 minutes Emma Claros [facility] Start: 07-31-2020 End: 07-31-2020 Patient encounter procedure PARISA KATHLEEN Facility:H1 Start: 06-04-2020 End: 06-05-2020 Patient encounter procedure PARISA KATHLEEN Facility:H1 Start: 07-11-2018 Patient encounter procedure RUTH B HUGO Facility:[id number] Start: 05-30-2018 End: 05-30-2018 Patient encounter procedure RUTH B SPLAWSKI Facility:[id number] Start: 05-11-2018 Patient encounter procedure RUTH B SPLAWSKI Facility:[id number] Procedures Date Procedure Procedure Detail Performing Clinician Start: 05-30-2018 Anesthesia upper gi endoscopic px nos RUTH SMYTH Start: 05-30-2018 Egd transoral biopsy single/multiple RUTH SMYTH Start: 10-24-2014 Health examination o f sub-group Parisa Kathleen Other Start: 12-12-2013 General examination of patient Parisa Kathleen Other End: 04-09-2012 Appendectomy Ruth Smyth MD Tonsillectomy and adenoidectomy Ruth Smyth MD Viral screening Parisa Kathleen Other Plan of Treatment Date Care Activity Detail Author Start: 04-09-2022 Influenza vaccination Sequenti al Influenza Vaccine (#1) [facility] Start: 2020 Hepatitis C screening Hepatitis C Sc reening [facility] Start: 2017 HIV screening HIV Screening [facility] Start: 2014 Depression screening using PHQ-9 (Patient Health Questionnaire 9) score Depression Screening (PHQ-2/9) [facility] Start: 2013 Vaccination for alaina n papillomavirus HPV Vaccines (1 - Male 2-dose series) [facility] Start: 2005 History and physical examination, annual for health maintenance Wellness Visit [facility] Start: 2002 COVID-19 Vaccine (#1) COVID-19 Vacci ne (#1) [facility] Start: 2002 Tetanus vaccination Tetanus: Every 1 0yrs [facility] Immunizations Immunization Date Immunization Notes Care Provider Fa alissa 10-25-2014 diphtheria, tetanus toxoids and acellular pertussis vaccine, unspecified formulation Parisa Kathleen Other [facility] Other Payers Date Payer Category Payer Medicaid [employer] [place] [id number] 2022-Present [phone] [address] [address] [place] [address] [id number] 2022 Medicaid [id number] 2002 Unknown [id number] 2002 Unknown [id number] 1977 Unknown [id number] 1976 Unknown [id number] 1976 Unknown [id number] 1959 Medicaid [id number] Unknown [id number] Unknown [id number] Social History Date Type Detail Facility Sex Assigned At Sex Assigned At [facility] Other Start: 10-19-2022 Tobacco smoking status WAIS Never smoked tobacco [facility] Start: 10-19-2022 Tobacco use and exposure Smokeless tobacco non-user [facility] Start: 10-19-2022 Alcohol intake Ex-drinker (finding) [facility] Start: 2002 Sex Assigned At Not on file [facility] Start: 10-09-2022 End: 10-19-2022 Exposure to SARS-CoV-2 (event) Not sure [facility] NEGATED: Highlighted row - - [place]-Ulrdfrfrkm-Tczsbd ke [address] Work Phone: Functional Status Date Assessment Result Facility NEGATED: Highlighted row Functional performance Functional status health issues are not documented Disease KI-Nzjyrmuget-Zgqhh jessica [address] Work Phone: Mental Status Date Assessment Result Facility NEGATED: Highlighted row Cognitive function [Interpretation] Cognitive status health issues are not documented Disease ZC-Kgmfdksfnw-Swfxr jessica [address] Work Phone: Evaluation note 09-13-2023 Note Date & Type Note Facility 09-13-2023 Evaluation note Encounter Date Diagnosis Assessment Notes Sep, Right foot pain (ICD-10 - M79.671) [facility] Other Evaluation note 09-10-2023 Note Date & Type Note Facility 09-10-2023 Evaluation note Encounter Date Diagnosis Assessment Notes Sep, Right foot pain (ICD-10 - M79.671) Start w xray, consider podiatry referral. Sep, Need for assessment for sleep apnea (ICD-10 - Z01.89) [facility]. Sep, GERD without esophagitis (ICD-10 - K21.9) chronic problem, pt requests refill. [facility] Other Instructions 10-19-2022 Patient InstructionsAttachments Note Date [...] cannot be sent through Care Everywhere.Otitis Media (American)Cough (American)documented in this encounter [facility] History of Present illness Narrative 10-19-2022 Kyree Arteaga CNP - 10/19/2022 11:47 AM EDT Note Date & Type Note Facility 10-19-2022 History of Presen t illness Narrative Images from the original note were not included. Patient Name: [facility] Urgent Care Location: Laura Fabian [address] [place] [id number] Date Of : Date Of Visit: 2002 10/19/2022 MRN# Provider: [id number] Kyree Arteaga CNP Chief Complaint Patient presents [...] Mucosal edema and congestion present. Mouth/Throat: Lips: [place]. Mouth: Mucous membranes are moist. Pharynx: Oropharynx [...] symptoms as needed. documented in this encounter [facility] Evaluation note 12-03-2021 Note Date & Type [...] Patient care instructions given in writting by [facility] Care At Home document. [facility] Other Clinical Note 12-05-2020 Note Date & Type Note Facility 12-05-[address] [facility] e speaking with pt and family re discharge dx and plan of care [facility] Evaluation note Note Date & Type Note Facility Evaluation note Diagnosis Bilateral otitis media, unspecified otitis media type- Primary Sore throat Acute pharyngitis Acute cough documented in this encounter [facility] History general Narrative - Reported Note Date & Type Note Facility History general Narrative - Reported Type Medical History ADHD Surgical History tonsillectomy and adenoidectomy Surgical History appendectomy Hospitalization History See Above [facility] Other Instructions Note Date & Type Note Facility Instructions Name Instructions not documented WN-Lrsvmaupsd-Okahsjgg [address] Work Phone: Summary Purpose Family History [...] Right foot pain (M79 .671) Referral Organization [facility]as Referring Provider First Name Parisa Referring Provider Last Name Hever Referring Provider Specialty [facility] Referred Organization [facility] Referred Provider Samuel Morris Referred Address [address] [place], [place],[address] Referred Provider Specialty Podiatry - S urgical Chiropody Referral Priority Routine General Notes Amanda Harrell 01:11:30 PM >received today, notes locked, attachments made, referral faxed Additional Source Comments (unrecognized sect ion and content) No Status Records FoundNo Status Records FoundNo Status Records FoundNo Status Records FoundNo Status Records FoundNo Status Records Found INFORMATION SOURCE (unrecogn ized section and content) DATE CREATED AUTHOR 07/24/2018 [facility] DATE CREATED AUTHOR AUTHOR'S ORGANIZ ATION 10/11/2018 [facility] DATE CREATED AUTHOR AUTHOR'S ORGANIZ ATION 08/10/2020 [facility] DATE CREATED AUTHOR AUTHOR'S ORGANIZ ATION 03/24/2021 [facility] DATE CREATED AUTHOR AUTHOR'S ORGANIZ ATION 07/30/2021 [facility] DATE CREATED AUTHOR AUTHOR'S ORGANIZ ATION 10/20/2022 [facility] REASON FOR VISIT (unrecogniz ed section and content) Foot/ Sleep Study Discussion Reason Comments Illness St, cough, body ache s, HUNTER x 3 days, pressure in left ear x 3 days, pt took at home covid test yesterday and was negative Care Teams (unrecognized sec tion and content) Pulverizer Feeder Relationship Specialty Start Date End Date Parisa Kathleen MD [address] [place] [address] PCP - General Family Medicine 10/19/22 FOR [...] BE BASED ON THE PRIMARY CLINICAL RECORDS. [facility] [employer] provides no warranty or guarantee of the accuracy or completeness of information in this document.
== END 2023-10-05 10:21 | disposition home or self-care (01) ==
LOC: MRI 10:20
PROVIDERS: PCP Family Medicine; Visit Provider Podiatrist Foot & Ankle Surgery
DX: S96.111A Strain of muscle and tendon of long extensor muscle of toe at ankle and foot level, right foot, initial encounter (principal); S86.311A Strain of muscle(s) and tendon(s) of peroneal muscle group at lower leg level, right leg, initial encounter
CPT/HCPCS: 73721

== ENCOUNTER 2023-10-19 13:45 | Outpatient (RCR) | payer MEDICAID, SELFPAY | END 2023-11-03 11:41 | disposition home or self-care (01) | LOC: PT 13:45 | PROVIDERS: PCP Family Medicine; Visit Provider Podiatrist Foot & Ankle Surgery | DX: M79.671 Pain in right foot (principal); S00-T88 Injury, poisoning and certain other consequences of external causes | CPT/HCPCS: 97035; 97161 ==

== ENCOUNTER 2023-10-27 19:58 | Outpatient (OUT) | payer MEDICAID, SELFPAY ==
--- OUTSIDE RECORDS SUMMARY | 2023-10-27 20:03 | XMS_ITS | CCD ---
Author Organization [facility] Care Team Providers Care Survey Data Technician Name Role Phone SPLAWSKI, RUTH B Unavailable [...] Attending Unavailable PARISA KATHLEEN Consulting Unavailable Ruth Arias MD Unavailable Unavailable Parisa Kathleen Unavailable Unavailable Emma Claros Unavailable Parisa Kathleen MD Primary Care Provider PARISA KATHLEEN Primary Care Unavailable KYREE ARTEAGA Attending Unavail able Parisa Kathleen Unavailable PARISA KATHLEEN Primary Care Physician Blas Solo Attending Unavailable Allergies Allergy Classification Reported Allergen(s) Allergy Type Date of Onset Reaction(s) Facility Amphetamine / Dextroamphetamine (1 source) Amphetamine / Dextroamphetamine Drug Allergy [facility] [address] Work Phone: [phone] dexmethylphenidate (1 source) dexmethylphenidate Drug Allergy [facility] [address] Work Phone: [phone] (1 source) Amphetamine / Dextroamphetamine Drug Allergy [facility] (2 sources) dexmethylphenidate; Translations: [Focalin] Drug Allergy [facility] (1 source) Esomeprazole Drug Allergy [facility] (6 sources) dexmethylphenidate; Translations: [DEXMETHYLPHENIDATE] Drug Allergy Other (See Comments), Unknown (qualifier value) [facility] (2 sources) Amphetamine aspartate / Amphetamine Sulfate / Dextroamphetamine saccharate / Dextroamphetamine Sulfate; Translations: [DEXTROAMPHETAMINE-A MPHETAMINE] Drug Allergy Unknown [facility] (4 sources) Esomeprazole; Translations: [ESOMEPRAZOLE] Drug Allergy Unknown [facility] (2 sources) Allergies Reconciled Propensity to adverse reactions Unknown [employer] Other (2 sources) Adderall *ADHD/ANTI-NARCOLEPS Y/ANTI-OBESITY/ANORE X Propensity to adverse reactions Unknown [employer] Other (2 sources) Whey Protein Drug allergy 018 Comment:whey [employer] Other (2 sources) Focalin XR *ADHD/ANTI-NARCOLEPS Y/ANTI-OBESITY/ANOR Propensity to adverse reactions 014 FOCALIN XR Comment:Freet ext Needs Updated. [employer] Other (2 sources) Adderall XR *ADHD/ANTI-NARCOLEPS Y/ANTI-OBESITY/ANO Propensity to adverse reactions 013 ADDERALL XR Comment:Freet ext Needs Updated. [employer] Other (2 sources) Focalin *ADHD/ANTI-NARCOLEPS Y/ANTI-OBESITY/ANORE XI Propensity to adverse reactions Unknown [employer] Other (2 sources) patient allergy list reviewed by nurse or physicia Propensity to adverse reactions 019 Comment:Done [employer] Other Medications Current Medications Medication Drug Class(es) [...] Active Start: 07-10-2019 take 1 tablet by [facility] every twelve hours Amoxicillin 875 MG 1 tablet Orally every 12 hrs for 7 days Jul, Not-Taking/PRN benzonatate 100 mg oral capsule (1 source) Non-narcotic Antitussive Start: 10-19-2022 benzonatate (Tessalo n Perles) 100 MG capsule Indications: Acute cough Take one or two capsules every 8 hours as needed for cough. Do not chew. . 60 capsule 1 10/19/2022 Active omeprazole 20 mg delayed release oral capsule (4 sources) Proton Pump Inhibitor Start: 10-12-2023 omeprazo le 20 mg Cap-DR Refills(s) 0 Start Date: 10/12/23 Status: Ordered Start: 05-11-2018 take 1 capsule by [facility] twice daily Omeprazole 20 MG Oral Capsule Delayed Release Take 1 capsule twice daily Quantity: 30 Refills: 0 Ruth Arias MD Start : 11-May-2018 Active take 1 capsule by [facility] once daily Omeprazole 20 MG 1 capsule 30 minutes before morning meal Orally Once a day for 30 days Active predniSONE 20 mg oral tablet (1 [...] oral tablet (3 sources) alpha-Adrenergic Agonist, Uncompetitive T-ucobaq-Q-aspartate Receptor Antagonist, Sigma-1 Agonist Start: 07-10-2019 take [...] (1 source) Polyene Antifungal Start: 06-27-2018 Nystatin 10 0000 UNIT/GM External Powder Quantity: 30 Refills: 0 Start : 27-Jun-2018 Active oxymetazoline hydrochloride 0.5 mg/ml nasal spray (2 sources) Start: 07-11-2018 take 1 spray(s) nasal route twice daily Afrin Sinus 0.05 % Nasal Solution USE 1 SPRAY IN EACH NOSTRIL TWICE DAILY. Quantity: 1 Refills: 0 Ruth Arias MD Start : 11-Jul-2018 Active 15 ML [...] Translations: [Duodenitis without bleeding] Onset: 05-30-2018 Episodic Influenza (1 source) Influenza; Translations: [Influenza due to unidentified influenza virus with other respiratory manifestations] Onset: 10-12-2023 Episodic Mood disorders (3 sources) Bipolar disorder, most recent episode depression; Translations: [Bipolar I disorder, most recent episode (or current) depressed, unspecified] 02-15-2019 Chronic Mood disorders (1 source) Mood disorders; [...] Chronic Other nutritional; endocrine; and metabolic disorders (3 sources) Body mass index 40+ - severely obese; Translations: [Body mass index (BMI) 45.0-49.9, adult] Onset: 10-12-2023 Chronic Other nutritional; endocrine; and metabolic disorders (1 source) Abnormal weight loss; Translations: [Abnormal weight loss] Onset: 05-30-2018 Episodic Other upper respiratory disease (2 sources) Bleeding from nose; Translations: [Epistaxis] Episodic Other upper respiratory disease (1 source) Epistaxis; Translations: [Epistaxis] Episodic Otitis media and related conditions (7 sources) Otitis media of bilateral ears; Translations: [Otitis media, unspecified, bilateral] Onset: 09-08-2018 Episodic Residual codes; unclassified (1 source) H/O: regular medication 02-15-2019 Episodic Screening and history of mental health [...] joint, forearm] Onset: 06-27-2018 Unclassified (1 source) Zpumxxjvlj-qqqhswv-oa rtussis, combined [DTP] [DtaP]; Translations: [Pggkwamzof-zemcmih-d ertussis, combined [DTP] [DtaP]] Onset: 10-24-2014 Unclassified (1 source) Vaccine product containing only acellular Bordetella pertussis and Clostridium tetani and Corynebacterium diphtheriae antigens (medicinal product); Translations: [Gcsbumhiai-kyfpmxv-p ertussis, combined [DTP] [DtaP]] Onset: 10-24-2014 Viral [...] Test Name Value Interpretation Reference Range Facility Ambulatory Visit Summaryon 0 10-12-2023 Ambulatory Visit Summary LAURA FABIAN II :2000 Visit Date:10/12/2023 Ambulatory Visit Instructions Your Diagnosis Influenza-like illness BMI 45.0-49.9, adult Your Care Team Attending Physician - Edil LAROSE, Blas Wheatley Primary Care Physician - PARISA KATHLEEN MD This Is Your Medications List omeprazole (omeprazole 20 mg Cap-DR) Procedures Performed Tonsillectomy and adenoidectomy. Discharge Vitals Temperature (Oral) 36.9 ?C Heart Rate (Peripheral) 80 Blood Pressure 124/80 Height 177 cm Height 70 in Weight 146.3 kg Weight 321.86 lb BMI 46.7 Medications What When Instructions Unchanged omeprazole (omeprazole 20 mg Cap-DR) Medications and Immunizations Administered Not Given influenza virus vaccine, inactivated, Postpone due to refusal SARS-CoV-2 mRNA (tomaxn 5y-11y) vac, Postpone due to refusal Allergies Focalin (Unknown) Problems Ongoing - Any problem that you are currently receiving treatment for. Bipolar 1 disorder, manic, mild History of regular medication use Patient Survey You may receive a survey via text or e-mail asking about your office visit. Please share your experience with us by completing your survey. We appreciate your feedback and thank you for choosing us for your care. Normal [facility] Family Medicine Office/Clini c Noteon 10-12-2023 Family Medicine Office/Clinic Note Chief Complaint Current pt cough, stuffy nose, BA, HUNTER, left ear, nausea HPI Staff 23 yo male here today with cough, bodyaches, nausea Symptoms began 2 days ago Complains of cough, bodyaches, nausea, left ear feels different, headache, stuffy nose, scratchy throat, vomiting today form cough Pt took at home covid test-negative History of Present Illness Reviewed and agree with above documented HPI by registered medical assistant. Patient is a 23-year-old male who presents today with complaint of cough, body aches, nausea, headache, stuffy nose, scratchy throat, left ear feeling funny, vomiting. All symptoms except body aches began 2 days ago. Body aches began today. He states he did take an at home COVID test which was negative. He denies fever nausea and states that he only vomited because he was coughing so hard. He denies shortness of breath, loss of taste or smell. 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 He states that his nephew, who he was around recently, recently tested positive for influenza. Denies any history of asthma, bronchitis, COPD, emphysema. Patient has an allergy to Focalin. Physical Exam Vitals & Measurements T: 36.9 ?C(Oral) HR: 80(Peripheral) BP: 124/80 SpO2: 97% HT: 70 in HT: 177 cm WT: 146.3 kg WT: 321.86 lb BMI: 46.7 General: generally ill appearing but in no acute distress Eyes: Pupils equal, round, and reactive to light. Conjunctivae and sclerae normal, and extraocular movements intact Ears: No deformity or lesion of external ear. Canals and TM appear normal bilaterally. TM?s intact, not inflamed, with normal light reflex. Hearing grossly normal to conversational speech Nose: mild nasal mucosa inflammation and edema Mouth: Mucous membranes moist. Normal oropharynx, and posterior pharynx without lesions or exudates. Tongue normal Neck: no adenopathy Lungs: Normal respiratory effort and clear to auscultation Cardio: regular rate and rhythm, no murmur Abdomen: Soft, non-distended, non-tender Musculoskeletal: No deformity or scoliosis noted. Normal range of motion. Joints normal. No erythema, edema, effusion, or ecchymosis Extremity: No clubbing, cyanosis, edema, or deformity, with normal ROM in both upper and lower bilateral extremities Neurologic: Grossly normal Skin: No rashes, ulcerations, or suspicious lesions Mental Status: Alert and oriented x3. Normal speech and thought content, normal mood and affect Assessment/Plan Patient was swabbed for influenza A/B. Discussed results influenza swab with patient. Results were negative for influenza A/B. 1. Influenza-like illness (J11.1: Influenza due to unidentified influenza virus with other respiratory manifestations) Tested at patient request. Rapid influenza test negative. Discussed viral nature of illness and typical duration- the worst (fever, body aches) is usually the first 3-5 days with cold symptoms lasting 7-14 days typically. May use saline nasal spray for symptomatic treatment. Fluids/rest encouraged, PRN Tylenol/ibuprofen for pain/fever, may need to alternate. Follow up with PCP if not improving over next 5-7 days, sooner or ER if significantly worsening. Patient/parent verbalized understanding of tx plan. Ordered: Influenza Type A&B POC 36650 2. BMI 45.0-49.9, adult (Z68.42: Body mass index [BMI] 45.0-49.9, adult) The standard range for ages 18 [...] Ordered: Body Mass Index (BMI) documented 3008F Portions of this record may have been created with voice recognition artificial intelligence software, specifically [employer], howsimple and or teextee. Occasional wrong-word or `ccaal-e-nqbn? substitutions may have occurred due to the inherent limitations of voice recognition and artificial intelligence software. Follow-up No qualifying data available Patient Education BMI for Adults Influenza, Adult, Voqp-uo-Aidt Problem List/Past Medical History Ongoing Bipolar 1 disorder, manic, mild History of regular medication use Historical No qualifying data Procedure/Surgical History Tonsillectomy and adenoidectomy. Medications omeprazole 20 mg Cap-DR Allergies Focalin (Unknown) Social History Alcohol - Denies Alcohol Use, 12/05/2020 Substance Abuse - Denies Substance Abuse, 12/05/2020 Tobacco - No Risk, 12/25/2020 Never (less than 100 in lifetime) Tobacco Use:. Never Smokeless Tobacco Use:., 10/12/2023 Family History Alcoholism: Mother and Grandparent. Anxiety: Mother and Grandparent. Bipolar: Mother, Father and Grandparent. Depression: Mother, Father, Grandparent, Grandparent and Grandparent. Mood changes-prob (more content not included)... Normal [facility] Comment on above: Result Comment: Elec tronically Signed By: Edil LAROSE, Blas Wheatley\.br\Date and Time Signed: 10/12/23 15:56 EST Patient Educationon 10-12-19 Patient Education Infectious Disease Influenza, Adult Influenza is also called the flu. It is an infection in the lungs, nose, and throat (respiratory tract). It spreads easily from person to person (is contagious). The flu causes symptoms that are like a cold, along with high fever and body aches. What are the causes? This condition is caused by the influenza virus. You can get the virus by: ? Breathing in droplets that are in the air after a person infected with the flu coughed or sneezed. ? Touching something that has the virus on it and then touching your mouth, nose, or eyes. What increases the risk? Certain things may make you more likely to get the flu. These include: ? Not washing your hands often. ? Having close contact with many people during cold and flu season. ? Touching your mouth, eyes, or nose without first washing your hands. ? Not getting a flu shot every year. You may have a higher risk for the flu, and serious problems, such as a lung infection (pneumonia), if you: ? Are older than 65. ? Are . ? Have a weakened disease-fighting system (immune system) because of a disease or because you are taking certain medicines. ? Have a long-term (chronic) condition, such as: ? Heart, kidney, or lung disease. ? Diabetes. ? Asthma. ? Have a liver disorder. ? Are very overweight (morbidly obese). ? Have anemia. What are the signs or symptoms? Symptoms usually begin suddenly and last 4?14 days. They may include: ? Fever and chills. ? Headaches, body aches, or muscle aches. ? Sore throat. ? Cough. ? Runny or stuffy (congested) nose. ? Feeling discomfort in your chest. ? Not wanting to eat as much as normal. ? Feeling weak or tired. ? Feeling dizzy. ? Feeling sick to your stomach or throwing up. How is this treated? If the flu is found early, you can be treated with antiviral medicine. This can help to reduce how bad the illness is and how long it lasts. This may be given by mouth or through an IV tube. Taking care of yourself at home can help your symptoms get better. Your doctor may want you to: ? Take jhtd-mju-gisqypk medicines. ? Drink plenty of fluids. The flu often goes away on its own. If you have very bad symptoms or other problems, you may be treated in a hospital. Follow these instructions at home: Activity ? Rest as needed. Get plenty of sleep. ? Stay home from work or school as told by your doctor. ? Do not leave home until you do not have a fever for 24 hours without taking medicine. ? Leave home only to go to your doctor. Eating and drinking ? Take an ORS (oral rehydration solution). This is a drink that is sold at pharmacies and stores. ? Drink enough fluid to keep your pee pale yellow. ? Drink clear fluids in small amounts as you are able. Clear fluids include: ? Water. ? Ice chips. ? Fruit juice mixed with water. ? Low-calorie sports drinks. ? Eat bland foods that are easy to digest. Eat small amounts as you are able. These foods include: ? Bananas. ? Applesauce. ? Rice. ? Lean meats. ? [place]. ? Crackers. ? Do not eat or drink: ? Fluids that have a lot of sugar or caffeine. ? Alcohol. ? Spicy or fatty foods. General instructions ? Take oygx-hyi-xremtcr and prescription medicines only as told by your doctor. ? Use a cool mist humidifier to add moisture to the air in your home. This can make it easier for you to breathe. ? When using a cool mist humidifier, clean it daily. Empty water and replace with clean water. ? Cover your mouth and nose when you cough or sneeze. ? Wash your hands with soap and water often and for at least 20 seconds. This is also important after you cough or sneeze. If you cannot use soap and water, use alcohol-based hand design engineer. ? Keep all follow-up visits. How is this prevented? ? Get a flu shot every year. You may get the flu shot in late summer, fall, or winter. Ask your doctor when you should get your flu shot. ? Avoid contact with people who are sick during fall and winter. This is cold and flu season. Contact a doctor if: ? You get new symptoms. ? You have: ? Chest pain. ? Watery poop (diarrhea). ? A fever. ? Your cough gets worse. ? You start to have more mucus. ? You feel sick to your stomach. ? You throw up. Get help right away if you: ? Have shortness of breath. ? Have trouble breathing. ? Have skin or nails that turn a bluish color. ? Have very bad pain or stiffness in your neck. ? Get a sudden headache. ? Get sudden pain in your face or ear. ? Cannot eat or drink without throwing up. These symptoms may represent a serious problem that is an emergency. Get medical help right away. Call your local emergency services (911 in the [place] ? Do not wait to see if the symptoms will go away. ? Do not drive yourself to the hospital. Summary ? Influenza is also call (more content not included)... 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 Acute nasopharyngitis [common cold] (J00: Acute [...] interactive video communications from my office using [employer] due to the restrictions of the COVID-19 pandemic. No physical exam was conducted other than those areas of the body visible to telecommunications with the patient located at [address] [place] [address], in vehicle in parking lot., with aunt [...] Ordered: TELEHEALTH Office Visit Level 2 New [address]807 Sore throat (J02.9: Acute pharyngitis, unspecified) strep negative Ordered: Rapid Strep POC 21808 Orders: brompheniramine/dextromethorph an/PSE, 10 mL, Oral, QID for cough and congestion for 1 months, 240 mL, Refill(s) [facility], 179, cm, 12/25/20 16:57:00 EDT, Height/Length Dosing, 138.5, kg, 12/25/20 16:57:00 EDT, Weight Dosing Follow-up With When Contact Information PARISA KATHLEEN MD, [place] [address]- Additional Instructions: Patient Education BMI for Adults Problem List/Past Medical History Ongoing No qualifying data Historical No qualifying data Medications Bromfed DM oral syrup, 10 mL, Oral, QID, PRN Allergies No Known Allergies Social History Tobacco - No Risk, 12/25/2020 Normal [facility] Comment on above: Result Comment: Elec tronically Signed By: Joan GILMAN CNP.arnoldo\Date and Time Signed: 12/25/20 18:08 EDT Patient Educationon 12-26-19 Patient Education Nutrition BMI for Adults Body [...] height. This can be done either in Malagasy ([place] or metric measurements. Note that charts are available to help you find your BMI quickly and easily without having to do these calculations yourself. To calculate your BMI in Malagasy ([place] measurements, your health care provider will: [...] problems. ? BMI can be measured using Malagasy measurements or metric measurements. ? To interpret [...] 04/06/2005 Document Revised: 07/08/2018 Document Reviewed: 06/08/2018 [employer] Patient Education ? 2019 [employer]. [facility] Patient Letter FTon 2020 Patient Letter [facility] December 25, 2020 LAURA FABIAN [address] [place], [place] [address] [place] [address] [place] [address] Please excuse LAURA FABIAN from school . Date and/or Time of Absence: From: 12/25/20 To: 12/26/20 May return to school on: 12/27/20 as long as feeling better overall and remains afebrile. Restrictions: None Provider Signature: Joan Gilman, MERCHANDISE CLERK-MAINTENANCE JOURNEYMAN, BRIDGE REPAIR CREW PERSON-C Nurse Practitioner [place] [address] [place] [address] [place] [address] [facility] Covid-19 PCR (CVDTBH)on 07-10 Covid-19 PCR DETECTED Abnormal NOT DETECTED [facility] Comment on above: Result Comment: This test is not yet approved or cleared by the [place] FDA. When there are no FDA-approved or cleared tests available, and other criteria are met, FDA can make tests available under an emergency access mechanism called an Emergency Use Authorization (EUA). The EUA for this test is supported by the [place] of Health and Human Service's (HHS's) declaration [...] used). Performed By: #### C VDTB #### [facility] [address] [address] Brian Rodrigues EUA Statement SEE BELOW Normal [facility] Comment on above: Result Comment: This test is not yet approved or cleared by the [place] FDA. When there are no FDA-approved or cleared tests available, and other criteria are met, FDA can make tests available under an emergency access mechanism called an Emergency Use Authorization (EUA). The EUA for this test is supported by the [place] of Health and Human Service?s (HHS?s) declaration [...] SARS-CoV-2. Performed By: #### C VDTB #### [facility] [address] [id number] Brian Rodrigues COVID-19 PCRon 06-05-2020 SARS-CoV-2, JORGE L Not Detected Normal Not Detected [facility] Comment on above: Result Comment: This nucleic acid amplification test was developed and its performance characteristics determined by [facility]. Nucleic acid amplification tests include PCR and [...] assay. Performed By: #### C VDPCR #### [facility] [address] [place], [place] [address] Brian Rodrigues [facility] - [facility] 10-09-2018 [facility] - Established No report was sent Normal [place] - [facility] 07-11-2018 [facility] - Established Chief Complaint [...] Tobacco use Allergies Adderall Recorded By: Ruth Arias; 06/26/2016 5:14:51 PM Focalin Recorded By: Ruth Arias; 06/26/2016 5:14:51 PM Current Meds Omeprazole 20 MG Oral Capsule Delayed Release; Take 1 capsule twice daily; Therapy: 11May2018 to (Evaluate:[id number]) Requested for: 05Jun2018; Last Rx:01Jun2018 Ordered Rx By: Ruth Arias; Dispense: 30 Days ; #:60 Capsule Delayed Release; Refill: 3;For: Abdominal pain, epigastric, Bipolar depression, Chronic cough, Fatty liver, Gastroesophageal reflux, Vomiting; ELIZABETH = N; Verified Transmission to [id number] Cetirizine HCl - 10 MG Oral Tablet; TAKE 1 TABLET BY MOUTH EVERYDAY NEEDED FOR ALLERGIES; Therapy: [id number] to Recorded Rx By: PETR; Dispense: 30 Days ; #:30; Refill: 0; ELIZABETH = N; Record; Last Updated By: Ruth Arias; 05/11/2018 9:20:10 PM [facility] Nasal [place] 0.05 % Nasal Solution; USE 2 SPRAYS IN EACH NOSTRIL TWICE A DAY NEEDED; Therapy: [id number] to Recorded Rx By: CHARLETTE; Dispense: 30 Days ; #:15; Refill: 0; ELIZABETH = N; Record; Last Updated By: Ruth Arias; 05/11/2018 9:20:10 PM Latuda 40 MG Oral Tablet; Therapy: [id number] to Recorded Dispense: 30 Days ; #:30; Refill: 0; ELIZABETH = N; Record; Last Updated By: Ruth Arias; 05/11/2018 9:20:10 PM Vitals Vital Signs Recorded: [id number] 12:34PM Heart Rate84 Eoaehidumtn15 Hphbavdk828 Uorbwoimy42 Zdvnjq040.5 cm 2-20 Stature Xbigucguid89 % Nosgoh861.35 kg 2-20 Weight Nwqzblqzdu91 % BMI Voswbnvttg42.65 BMI Utybmmixia82 % BSA Calculated2.3 O2 Nvhdcfestq91 Physical Exam alert NAD WDON TM's nl sclera slightly injected, PERRL, EOM nl nose clear PWMM, no oral sores or pharyngitis no increased LN No thyromegaly lungs clear CV nl no CVA/SI tenderness abd soft with nl BS, no organomegaly or masses, non tender and non distended ext nl skin nl Results/Data Upper GI Endoscopy [id number] 12:04PMNon Ambulatory, Provider Test NameResultFlagReference Upper GI Endoscopy Pediatric(Report) Patient Name: Laura Fabian Procedure Date: 05/30/2018 12:04 PM Date of : 2000 Site: [facility] Ethnicity: Not or Race: White Attending MD: Ruth Arias MD Procedure: Pediatric Upper GI Endoscopy Indications: Epigastric abdominal pain, Suspected esophageal reflux, Vomiting, Weight loss Providers: Ruth Arias MD (Doctor) Pediatric Gastroenterology Referring MD: Medicines: General Anesthesia Complications: No immediate complications. Estimated blood loss: Minimal. Procedure: Pre-Anesthesia Assessment: - [place]ardon Protocol: - Pre-procedure Verification: Prior to the [...] verified by the physician, the anesthesiologist, the business machine mechanic and the respiratory technician in the procedure room at 12:36 [...] forceps for histology of suspected eosinophilic esophagitis. Eldorado-colored mucosa was present. Inlet patches large and [...] Impression: - Esophageal mucosal changes. Biopsied. - Eldorado-colored mucosa. - Mucosal nodule found in the esophagus. Biopsied. - Nodular mucosa in the gastric body. Biopsied. - Mucosal nodule found in the duodenum. Biopsied. - Normal. Biopsied. Recommendation: - Await pathology results. - Discharge the patient to home with parent(s). - The findings and recommendations were discussed with the patient's family. Attending Participation: I personally performed the entire procedure. Ruth Arias MD 05/30/2018 1:11:21 PM This report has been signed electronically. Number of Addenda: 0 Note Initiated On: 05/30/2018 12:04 PM Scope Withdrawal Time Total Procedure Duration Time Scope In: Scope Out: Provimage [email or web address] [id number]} Surgical [id number] 12:00AMSRuth guzman Test NameResultFlagReference Case Surgical Pathology(Report) Name LAURA FABIAN Pathologist: VIRGINIA BHAENA MD Date of Procedure: 05/30/2018 Date Received: 05/30/2018 Date Reported 05/31/2018 Submitting Physician: RUTH ARIAS M.D. Location: Other External # FINAL DIAGNOSIS [...] EACH NOSTRIL TWICE DAILY Rx By: Ruth Arias; Dispense: 0 Days ; #:1 X 15 ML Bottle; Refill: 0;For: Epistaxis; ELIZABETH = N; [id number]; Last Updated By: System, Wakozi; 07/11/2018 1:09:14 PM Patient Discussion/Summary esophagitis and he had eosinophils he has whey antibodies improvement on omeprazole. Plan continue the omeprazole twice a day. He has appt with dietitian. RTC 3 months. For issues or concerns call the Office [phone]. 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 Signatures Electronically signed by : Ruth Arias MD; Jul 11 2018 2:33PM EST (Author) Normal [facility] WHEY, IGGon 06-02-2018 WHEY, IGG 75.1 mcg/mL High <2.0 [facility] Comment on above: Result Comment: [...] was developed and its performancecharacteristics determined by [employer] It has notbeen cleared or approved by the U.S. Food and DrugAdministration. Performed At:[address] [employer] [place] [address]CvlynlrfSushma Conroy PhD HCLD(ABB)CLIA# [id number] Performed By: #### A LE83 ####[id number] [place] [address] IMMUNOCAP INTERP.IGEon 05-31 IMMUNOCAP INTERP.IGE SEE COMMENT Normal [facility] Comment on above: Result Comment: REFE RENCE RANGE (IMMUNOCAP) IGE KU/L CLASS INTERPRETATION < 0.35 0 BELOW DETECTION 0.35- 0.69 1 LOW POSITIVE 0.70- 3.49 2 MODERATE POSITIVE 3.50- 17.49 3 HIGH GTDIHQPY03.50- 49 4 VERY HIGH WZQPXNKJ24 - 99 5 VERY HIGH POSITIVE >100 6 VERY HIGH POSITIVE Performed By: #### I CRRE ####[id number] [place] [address] INSULINon 05-31-2018 INSULIN 44 uIU/ml High 3 - 19 [facility] Comment on above: Performed By: #### I NSUL ####[id number] [place] [address] WHEY,IGE,ICon 05-31-2018 WHEY,IGE,IC <0.35 Normal <0.35 [facility] Comment on above: Result Comment: SEE IMMUNOCAP INTERP.IGE Performed By: #### I CW07 ####[id number] [place] [address] History and Physical - Surge ry > [...] AO x3Skin: nl Signatures/Attestation/Certifi cation:Provider/Team Contact Info-Pager [id number] Provider Inpatient Certification StatementN/A - observationpatient/other outpatient visits Electronic Signatures:Ruth Arias) (Signed 30-May-2018 12:11)Authored: History of Present Illness, Allergies, Home Medication Review,Impression/Procedure, Review of Systems, Physical Exam,Signatures/Attestation/Ce rtification Last Updated: 30-May-2018 12:11 by Ruth Arias) Normal [facility] Patient Profile - Preop - Pe diatric v2on 05-30-2018 Protein mass conc Profile:Initial Info :How to be AddressedAnthonySpoken Language PreferredEnglishParental Spoken Language PreferredEnglishLegal CustodianParentsAre you currently using the Personal Electronic Health Record or [facility]CAREnoAre you interested in learning more about [facility] for the management of yourhealthdeclinedStated Reason for AdmissionEGDPrimary Contact Name and NumberJanice [phone] Belongingsgiven to parent/guardianMedications Brought to HospitalnoPatient Belongings [...] for HIGH RISK.Are there any cultural, spiritual, yarsanism practices/values/needs that areimportant for us to knownoPain [...] 30-May-2018 11:27 by Mara Galvan (ZOHREH) Normal [facility] Preop Checkliston 05-30-2018 Preop Checklist Preop Checklist:Preo p Checklist: Arrival [id number] Arrival Time10:52 Procedure TypeEGD NPO [id number] 23:00 ID Band Onyes Allergy Bandyes Consent [...] 30-May-2018 11:14 by Mara Galvan (RN) Normal [facility] Surgical Pathology Depar tmenton 05-30-2018 [facility] Surgical Pathology Department Name LAURA FABIAN Pathologist: HERBERT POSTate of Procedure: 05/30/2018Date Received: 05/30/2018Date Reported 05/31/2018Submitting Physician: RUTH ARIAS M.D.Location: Other External # FINAL DIAGNOSISA. ESOPHAGUS, [...] submitted in toto in one cassette.EXLexl/05/30/2018 Normal [facility] Comment on above: Performed By: #### U [facility] ####[facility] Surgical Pathology [id number] [place] [address] [facility] Gastroenterology - Jessee lopez 05-11-2018 [facility] Gastroenterology - Established Chief Complaint [...] Tobacco use Allergies Adderall Recorded By: Ruth Arias; 06/26/2016 5:14:51 PM Focalin Recorded By: Ruth Arias; 06/26/2016 5:14:51 PM Vitals Vital Signs Recorded: 11May2018 08:14AM Zbisspcckbz12.6 F Heart Rate66 Kicknqam122 Vgiagztkm09 Bynahr300.4 cm Jxhxtw471 lb BMI Fvqhanxnlp74.22 BSA Calculated2.27 BMI Jzatrssxsf62 % 2-20 Stature Avtoubjrag32 % 2-20 Weight Kogtpctvxf83 % Physical Exam alert NAD WDON TM's [...] TAKE 1 CAPSULE Daily Rx By: Ruth Arias; Dispense: 0 Days ; #:30 Capsule Delayed Release; Refill: 3;For: Abdominal pain, epigastric, Bipolar depression, Chronic cough, Fatty liver, Gastroesophageal reflux, Vomiting; ELIZABETH = N; [id number]; Last Updated By: Nancy Geiger; 05/11/2018 9:09:19 AM Endoscopy - Upper GI; Status:Active; Requested for:11May2018; Perform:[facility]; Due:09Aug2018; Last Updated By:Beth Murray; 05/11/2018 12:14:39 PM;Ordered; For:Abdominal pain, epigastric, Bipolar depression, Chronic cough, Fatty liver, Gastroesophageal reflux, Vomiting; Ordered By:Ruth rAias; Patient Discussion/Summary epigastric pain chronic vomiting fatty liver Plan EGD lab will call about scheduling the scope. Omeprazole 20 mg daily Zofran for the nausea No sugary drinks no diet drinks no red meat lot of fruits and veg and fish. RTC after the scope. 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 End of Encounter Meds Omeprazole 20 MG Oral Capsule Delayed Release; TAKE 1 CAPSULE Daily; Therapy: 11May2018 to (Last Rx:11May2018) Requested for: 11May2018 Ordered Normal [facility] Vital Signs Date Time Vital Sign Value Performing Clinician Facility 10-12-2023 15:25-0500 Blood Pressure Location [facility] 10-12-2023 15:25-0500 Body temperature 98.42 [degF] [facility] 10-12-2023 15:25-0500 Diastolic blood pressure 80 mm[Hg] [facility] 10-12-2023 15:25-0500 Heart rate 80 /min [facility] 10-12-2023 15:25-0500 SaO2% (BldA) [Mass fraction] 97 % [facility] 10-12-2023 15:25-0500 Systolic blood pressure 124 mm[Hg] [facility] 09-10-2023 09:00-0500 Body height 175.26 cm Parisa Kathleen Other [employer] Other 09-10-2023 09:00-0500 Body mass index (BMI) [Ratio] 47.25 kg/m2 Parisa Kathleen Other [facility] [facility] Other 09-10-2023 09:00-0500 Body weight 145.15 kg Parisa Kathleen Other [facility] Other 09-10-2023 09:00-0500 Diastolic blood pressure 72 mm[Hg] Parisa Kathleen Other [facility] [facility] Other 09-10-2023 09:00-0500 Systolic blood pressure 112 mm[Hg] Parisa Kavya Other [employer] Other 10-19-2022 11:52-0400 Body height 177.8 cm Kyree Arteaga [employer] Work Phone: [facility] 10-19-2022 11:52-0400 Body mass index (BMI) [Ratio] 45.63 kg/m2 Kyree Arteaga [employer] Work Phone: [facility] 10-19-2022 11:52-0400 Body temperature 98.29 [degF] Kyree Arteaga [employer]TENA[employer] Work Phone: [facility] 10-19-2022 11:52-0400 Body weight 144.24 kg Kyree Arteaga [employer]TE[employer] Work Phone: [facility] 10-19-2022 11:52-0400 Diastolic blood pressure 85 mm[Hg] Kyree Arteaga [employer]TENA[employer] Work Phone: [facility] 10-19-2022 11:52-0400 Heart rate 92 /min Kyree Arteaga [employer]TE[employer] Work Phone: [facility] 10-19-2022 11:52-0400 Respiratory rate 16 /min Kyree Arteaga [employer] Work Phone: [facility] 10-19-2022 11:52-0400 SaO2% (BldA) [Mass fraction] 95 % Kyree Arteaga [employer]TENA[employer] Work Phone: [facility] 10-19-2022 11:52-0400 Systolic blood pressure 133 mm[Hg] Kyree Arteaga [employer]TENA[employer] Work Phone: [facility] 12-03-2021 11:15-0400 Body height 175.26 cm Emma Claros Other [employer] Other 12-03-2021 11:15-0400 Body mass index (BMI) [Ratio] 43.56 kg/m2 Emma Claros Other [employer] Other 12-03-2021 11:15-0400 Body temperature 98.2 [degF] Emma Claros Other [employer] Other 12-03-2021 11:15-0400 Body weight 133.81 kg Emma Claros Other [employer] Other 12-03-2021 11:15-0400 Respiratory rate 18 /min Emma Claros Other [employer] Other 12-03-2021 11:15-0400 SaO2% (BldA) [Mass fraction] 97 % Emma Claros Other [employer] Other Encounters Encounter Date Encounter Type Care Provider Facility Start: 10-12-2023 End: 10-13-2023 ambulatory Blas Solo Facility:[facility] Start: 10-12-2023 End: 10-12-2023 Patient encounter procedure Blas Solo [facility] Start: 09-13-2023 End: 09-13-2023 ambulatory Parisa Kathleen Other [employer] Other Start: 09-13-2023 Telephone encounter Parisa Kathleen [facility] Start: 09-10-2023 End: 09-10-2023 ambulatory Parisa Kathleen Other [employer] Other Start: 09-10-2023 Encounter for other specified special examinations Parisa Kathleen [facility] Start: 09-10-2023 Office outpatient vi sit 15 minutes Parisa Kathleen [facility] Start: 10-19-2022 End: 10-19-2022 ambulatory PARISA KATHLEEN [facility] Start: 10-19-2022 End: 10-19-2022 Office outpatient new 20 minutes Kyree Arteaga [facility] Work Phone: [facility] [place] Comment on above: Bilateral otitis med ia, unspecified otitis media type (Primary Dx); Sore throat; Acute cough Start: 05-05-2022 Routine infant or ch ild health check Parisa Kavya Other [employer] Other Start: 05-05-2022 Well child visit Parisa Kavya Other [employer] Other Start: 12-03-2021 End: 12-03-2021 ambulatory Emma Claros Other [employer] Other Start: 12-03-2021 Office outpatient vi sit 15 minutes Emma Claros [facility] Start: 07-31-2020 End: 07-31-2020 Patient encounter procedure PARISA KATHLEEN Facility:[facility]1 Start: 06-04-2020 End: 06-05-2020 Patient encounter procedure PARISA KATHLEEN Facility:[facility] Start: 07-11-2018 Patient encounter procedure RUTH B HUGO Facility:[id number] Start: 05-30-2018 End: 05-30-2018 Patient encounter procedure RUTH B HUGO Facility:[id number] Start: 05-11-2018 Patient encounter procedure RUTH B HUGO Facility:[id number] Procedures Date Procedure Procedure Detail Performing Clinician Start: 05-30-2018 Anesthesia upper gi endoscopic px nos RUTH ARIAS Start: 05-30-2018 Egd transoral biopsy single/multiple RUTH ARIAS Start: 10-24-2014 Health examination o f sub-group Parisa Kavya Other Start: 12-12-2013 General examination of patient Parisa Kathleen Other End: 04-09-2012 Appendectomy Ruth Arias MD Tonsillectomy and adenoidectomy Ruth Arias MD Tonsillectomy and adenoidectomy Blas Solo Viral screening Parisa Kathleen Other Plan of Treatment Date Care Activity Detail Author Start: 04-09-2022 Influenza vaccination Sequenti al Influenza Vaccine (#1) [facility] Start: 2020 Hepatitis C screening Hepatitis C Sc reening [facility] Start: 2017 HIV screening HIV Screening [facility] Start: 2014 Depression screening using PHQ-9 (Patient Health Questionnaire 9) score Depression Screening (PHQ-2/9) [facility] Start: 2013 Vaccination for alaina n papillomavirus HPV Vaccines (1 - Male 2-dose series) [facility] Start: 2005 History and physical examination, annual for health maintenance Wellness Visit [facility] Start: 2002 COVID-19 Vaccine (#1) COVID-19 Vacci ne (#1) [facility] Start: 2002 Tetanus vaccination Tetanus: Every 1 0yrs [facility] Immunizations Immunization Date Immunization Notes Care Provider Fa alissa 06-29-2016 meningococcal ACWY vaccine, unspecified formulation [facility] 10-25-2014 diphtheria, tetanus toxoids and acellular pertussis vaccine, unspecified formulation Parisa Kathleen Other [employer] Other 10-24-2014 tetanus toxoid, reduced diphtheria toxoid, and acellular pertussis vaccine, adsorbed [facility] 03-22-2012 tetanus toxoid, reduced diphtheria toxoid, and acellular pertussis vaccine, adsorbed [facility] 01-10-2008 DTaP, unspecified formulation [facility] 01-10-2008 measles, mumps and rubella virus vaccine [facility] 01-10-2008 poliovirus vaccine, unspecified formulation [facility] 01-10-2008 varicella virus vaccine [facility] 10-07-2004 measles, mumps and rubella virus vaccine [facility] 10-07-2004 poliovirus vaccine, unspecified formulation [facility] 10-07-2004 varicella virus vaccine [facility] 09-16-2004 DTaP, unspecified formulation [facility] 09-10-2004 diphtheria, tetanus toxoids and acellular pertussis vaccine [facility] 09-10-2004 haemophilus influenz ae type b vaccine, PRP-T conjugate [facility] 09-09-2004 poliovirus vaccine, unspecified formulation [facility] 2002 DTaP, unspecified formulation [facility] 2002 hepatitis B vaccine, pediatric or pediatric/adolescent dosage [facility] 2002 DTaP, unspecified formulation [facility] 2002 DTaP, unspecified formulation [facility] 2002 hepatitis B vaccine, pediatric or pediatric/adolescent dosage [facility] 2002 hepatitis B vaccine, pediatric or pediatric/adolescent dosage [facility] NEGATED: Highlighted row has not occurred!10-12-2023 influenza virus vaccine, unspecified formulation [facility] NEGATED: Highlighted row has not occurred!10-12-2023 SARS-CoV-2 mRNA (tozinameran 5y-11y) vaccine [facility] Payers Date Payer Category Payer Medicaid [facility] MEDICAID [place] [id number] 2022-Present [phone] [address] [address] [place] [address] [id number] 2022 Medicaid [id number] 2002 Unknown [id number] 2002 Unknown [id number] 2002 Unknown [id number] 1977 Unknown [id number] 1976 Unknown [id number] 1976 Unknown [id number] 1959 Medicaid [id number] Unknown [id number] Unknown [id number] Social History Date Type Detail Facility Sex Assigned At [facility] Start: 10-19-2022 End: 10-12-2023 Tobacco smoking status GAIS Never smoked tobacco [facility] Start: 10-19-2022 Tobacco use and exposure Smokeless tobacco non-user [facility] Start: 10-19-2022 Alcohol intake Ex-drinker (finding) [facility] Start: 2000 Sex Assigned At Not on file [facility] Start: 10-09-2022 End: 10-19-2022 Exposure to SARS-CoV-2 (event) Not sure [facility] Tobacco smoking status Never [facility] NEGATED: Highlighted row - - MH-Eejidtkfcm-Hveyyn k e [address] Work Phone: Functional Status Date Assessment Result Facility 10-12-2023 Functional Status N/A [facility] NEGATED: Highlighted row Functional performance Functional status health issues are not documented Disease RK-Ffgqeqltxw-Ipcdkg ke [address] Work Phone: Mental Status Date Assessment Result Facility NEGATED: Highlighted row Cognitive function [Interpretation] Cognitive status health issues are not documented Disease DU-Vpvcceioef-Iflqe jessica [address] Work Phone: Clinical Notes 12-03-2021 to 10-12-2023 Note Date & Type Note Facility 10-12-2023 Hospital Discharg e instructions Patient Education 10/12/2023 15:56:26 BMI for Adults BMI for Adults What is BMI? Body mass index (BMI) is a number that is calculated from a person's weight and height. BMI can help estimate how much of a person's weight is composed of fat. BMI does not measure body fat directly. Rather, it is an alternative to procedures that directly measure body fat, which can be difficult and expensive. BMI can help identify people who may be at higher risk for certain medical problems. What are BMI measurements used for? BMI is used as a screening tool to identify possible weight problems. It helps determine whether a person is obese, overweight, a healthy weight, or underweight. BMI is useful for: Identifying a weight problem that may be related to a medical condition or may increase the risk for medical problems. Promoting changes, such as changes in diet and exercise, to help reach a healthy weight. BMI screening can be repeated to see if these changes are working. How is BMI calculated? BMI involves measuring your weight in relation to your height. Both height and weight are measured, and the BMI is calculated from those numbers. This can be done either in [place] ([place] or metric measurements. Note that charts and online BMI calculators are available to help you find your BMI quickly and easily without having to do these calculations yourself. To calculate your BMI in [place] ([place] measurements: 1.Measure your weight in pounds (lb). 2.Multiply the number of pounds by 703. For example, for a person who weighs 180 lb, multiply that number by 703, which equals 126,540. 3.Measure your height in inches. Then multiply that number by itself to get a measurement called inches squared. For example, for a person who is 70 inches tall, the inches squared measurement is 70 inches x 70 inches, which equals 4,900 inches squared. 4.Divide the total from step 2 (number of lb x 703) by the total from step 3 (inches squared): 126,540 4,900 = 25.8. This is your BMI. To calculate your BMI in metric measurements: 1.Measure your weight in kilograms (kg). 2.Measure your height in meters (m). Then multiply that number by itself to get a measurement called meters squared. For example, for a person who is 1.75 m tall, the meters squared measurement is 1.75 m x 1.75 m, which is equal to 3.1 meters squared. 3.Divide the number of kilograms (your weight) by the meters squared number. In this example: 70 3.1 = 22.6. This is your BMI. What do the results mean? BMI charts are used to identify whether you are underweight, normal weight, overweight, or obese. The following guidelines will be used: Underweight: BMI less than 18.5. Normal weight: BMI between 18.5 and 24.9. Overweight: BMI between 25 and 29.9. Obese: BMI of 30 or above. Keep these notes in mind: Weight includes both fat and muscle, so someone with a muscular build, such as an athlete, may have a BMI that is higher than 24.9. In cases like these, BMI is not an accurate measure of body fat. To determine if excess body fat is the cause of a BMI of 25 or higher, further assessments may need to be done by a health care provider. BMI is usually interpreted in the same way for men and women. Where to find more information For more information about BMI, including tools to quickly calculate your BMI, go to these websites: Centers for Disease Control and Prevention: www.cdc.gov [place] [employer]: www.heart.org National Heart, Lung, and Blood [place]: www.nhlbi.nih.gov Summary Body mass index (BMI) is a number that is calculated from a person's weight and height. BMI may help estimate how much of a person's weight is composed of fat. BMI can help identify those who may be at higher risk for certain medical problems. BMI can be measured using Malagasy measurements or metric measurements. BMI charts are used to identify whether you are underweight, normal weight, overweight, or obese. This information is not intended to replace advice given to you by your health care provider. Make sure you discuss any questions you have with your health care provider. Document Revised: 04/17/2020 Document Reviewed: 02/23/2020 [employer] Patient Education 2022 [employer]. 10/12/2023 15:56:24 Influenza, Adult, Ityo-df-Skjn Influenza, Adult Influenza is also called the flu. It is an infection in the lungs, nose, and throat (respiratory tract). It spreads easily from person to person (is contagious). The flu causes symptoms that are like a cold, along with high fever and body aches. What are the causes? This condition is caused by the influenza virus. You can get the virus by: Breathing in droplets that are in the air after a person infected with the flu coughed or sneezed. Touching something that has the virus on it and then touching your mouth, nose, or eyes. What increases the risk? Certain things may make you more likely to get the flu. These include: Not washing your hands often. Having close contact with many people during cold and flu season. Touching your mouth, eyes, or nose without first washing your hands. Not getting a flu shot every year. You may have a higher risk for the flu, and serious problems, such as a lung infection (pneumonia), if you: Are older than 65. Are . Have a weakened disease-fighting system (immune system) because of a disease or because you are taking certain medicines. Have a long-term (chronic) condition, such as: ?Heart, kidney, or lung disease. ?Diabetes. ?Asthma. Have a liver disorder. Are very overweight (morbidly obese). Have anemia. What are the signs or symptoms? Symptoms usually begin suddenly and last 4 14 days. They may include: Fever and chills. Headaches, body aches, or muscle aches. Sore throat. Cough. Runny or stuffy (congested) nose. Feeling discomfort in your chest. Not wanting to eat as much as normal. Feeling weak or tired. Feeling dizzy. Feeling sick to your stomach or throwing up. How is this treated? If the flu is found early, you can be treated with antiviral medicine. This can help to reduce how bad the illness is and how long it lasts. This may be given by mouth or through an IV tube. Taking care of yourself at home can help your symptoms get better. Your doctor may want you to: Take drmx-rat-umycxnf medicines. Drink plenty of fluids. The flu often goes away on its own. If you have very bad symptoms or other problems, you may be treated in a hospital. Follow these instructions at home: Activity Rest as needed. Get plenty of sleep. Stay home from work or school as told by your doctor. ?Do not leave home until you do not have a fever for 24 hours without taking medicine. ?Leave home only to go to your doctor. Eating and drinking Take an ORS (oral rehydration solution). This is a drink that is sold at pharmacies and stores. Drink enough fluid to keep your pee pale yellow. Drink clear fluids in small amounts as you are able. Clear fluids include: ?Water. ?Ice chips. ?Fruit juice mixed with water. ?Low-calorie sports drinks. Eat bland foods that are easy to digest. Eat small amounts as you are able. These foods include: ?Bananas. ?Applesauce. ?Rice. ?Lean meats. ?[place]. ?Crackers. Do not eat or drink: ?Fluids that have a lot of sugar or caffeine. ?Alcohol. ?Spicy or fatty foods. General instructions Take vvlb-jgh-ovzrees and prescription medicines only as told by your doctor. Use a cool mist humidifier to add moisture to the air in your home. This can make it easier for you to breathe. ?When using a cool mist humidifier, clean it daily. Empty water and replace with clean water. Cover your mouth and nose when you cough or sneeze. Wash your hands with soap and water often and for at least 20 seconds. This is also important after you cough or sneeze. If you cannot use soap and water, use alcohol-based hand design engineer. Keep all follow-up visits. How is this prevented? Get a flu shot every year. You may get the flu shot in late summer, fall, or winter. Ask your doctor when you should get your flu shot. Avoid contact with people who are sick during fall and winter. This is cold and flu season. Contact a doctor if: You get new symptoms. You have: ?Chest pain. ?Watery poop (diarrhea). ?A fever. Your cough gets worse. You start to have more mucus. You feel sick to your stomach. You throw up. Get help right away if you: Have shortness of breath. Have trouble breathing. Have skin or nails that turn a bluish color. Have very bad pain or stiffness in your neck. Get a sudden headache. Get sudden pain in your face or ear. Cannot eat or drink without throwing up. These symptoms may represent a serious problem that is an emergency. Get medical help right away. Call your local emergency services (911 in the [place] Do not wait to see if the symptoms will go away. Do not drive yourself to the hospital. Summary Influenza is also called the flu. It is an infection in the lungs, nose, and throat. It spreads easily from person to person. Take egjt-tcc-jyduglz and prescription medicines only as told by your doctor. Getting a flu shot every year is the best way to not get the flu. This information is not intended to replace advice given to you by your health care provider. Make sure you discuss any questions you have with your health care provider. Document Revised: 03/14/2021 Document Reviewed: 03/14/2021 [employer] Patient Education 2022 [employer]. [facility] 09-13-2023 Evaluation note Encounter Date Diagnosis Assessment Notes Sep, Right foot pain (ICD-10 - M79.671) [employer] Other 02-02-2024 Evaluation note* Encounter Date Diagnosis Assessment Notes Treatment Notes Treatment Clinical Notes Sep, Right foot pain (ICD-10 - M79.671) Start w xray, consider podiatry referral. Sep, Need for assessment for sleep apnea (ICD-10 - Z01.89) [facility]. Sep, GERD without esophagitis (ICD-10 - K21.9) chronic problem, pt requests refill. [employer] Other 03-13-2023 Instructions* Patient Instructions* Kyree Arteaga CNP - 10/19/2022 12:12 PM EDT Thank you for choosing [facility] for your healthcare needs today. Discontinue VEETID. I sent in PCN higher dosing recommended for ear infection and cough medication. Follow up no improvement in 7 to 10 days or for worsening of symptoms as needed. * Attachments The following attachments cannot be sent through Care Everywhere. * Otitis Media (Malagasy) * Cough (Malagasy) documented in this [id number] History of Present illness Narrative* Kyree Arteaga CNP - 10/19/2022 11:47 AM EDT Images from the original note were not included. Patient Name: [facility] Location: [facility] [address] [place] [id number] Date Of : Date Of Visit: 2000 10/19/2022 MRN# Provider: [id number] Kyree Arteaga CNP Chief Complaint Patient presents [...] dosing recommended for ear infection and cough medication.Follow up no improvement in 7 to 10 [...] days. Congestion of the left ear. Currently onday 5 of 7 day medication for tooth [...] Mucosal edema and congestion present. Mouth/Throat: Lips: [place]. Mouth: Mucous membranes are moist. Pharynx: Oropharynx [...] (1,000 mg total) by mouth 3 (three) timesa day for 7 days . 42 capsule [...] of symptoms as needed. documented in this [id number] Evaluation note* Encounter Date Diagnosis Assessment Notes Treatment Notes Treatment Clinical Notes Nov, Contact with and (suspected) exposure [...] Patient care instructions given in writting by [facility] At Home document. [employer] Other Evaluation + Plan note No data available for this section [facility] [employer] Care Evaluation note* Diagnosis Bilateral otitis media, unspecified otitis media type- Primary Sore throat Acute pharyngitis Acute cough [facility] - [facility]* Type Description Date Medical History ADHD Surgical History tonsillectomy and adenoidectomy Surgical History appendectomy Hospitalization History See Above [employer] Other Instructions* Name Dates Details Instructions not documented [id number] Work Phone: Progress note No data available for this section [facility] Summary Purpose Family History No Family History Records Found Grandmother Name Dates Details Family history of [...] Right foot pain (M79 .671) Referral Organization [facility] Adrian alan Referring Provider First Name Parisa Referring Provider Last Name Kavya Referring Provider Specialty Family [facility] Referred Organization [facility] Referred Provider Samuel Morris Referred Address [address], [place],[address] Referred Provider Specialty Podiatry - S urgical Chiropody Referral Priority Routine General Notes Amanda Harrell 01:11:30 PM >received today, notes locked, attachments made, referral faxed Additional Source Comments (unrecognized sect ion and content) No Status Records FoundNo Status Records FoundNo Status Records FoundNo Status Records FoundNo Status Records FoundNo Status Records Found INFORMATION SOURCE (unrecogn ized section and content) DATE CREATED AUTHOR 07/24/2018 [facility] DATE CREATED AUTHOR AUTHOR'S ORGANIZ ATION 10/11/2018 [employer] DATE CREATED AUTHOR AUTHOR'S ORGANIZ ATION 08/10/2020 [facility] DATE CREATED AUTHOR AUTHOR'S ORGANIZ ATION 03/24/2021 [facility] DATE CREATED AUTHOR AUTHOR'S ORGANIZ ATION 10/20/2022 [facility] DATE CREATED AUTHOR AUTHOR'S ORGANIZ ATION 10/13/2023 [facility] REASON FOR VISIT (unrecogniz ed section and content) Reason Comments Illness St, cough, body ache s, HUNTER x 3 days, pressure in left ear x 3 days, pt took at home covid test yesterday and was negative Care Teams (unrecognized sec tion and content) Survey Data Technician Relationship Specialty Start Date End Date Parisa Kathleen MD [address] [place] [address] PCP - General Family Medicine 10/19/22 FOR [...] BE BASED ON THE PRIMARY CLINICAL RECORDS. [facility] [employer] [facility]. provides no warranty or guarantee of the accuracy or completeness of information in this document.
== END 2023-10-27 19:59 | disposition home or self-care (01) ==
LOC: SLEEP 19:59
PROVIDERS: PCP Family Medicine; Visit Provider Family Medicine
DX: G47.33 Obstructive sleep apnea (adult) (pediatric) (principal)
CPT/HCPCS: 95810